=== PATIENT | male | born 1965 | race African-American/Black ===

== ENCOUNTER 2018-07-26 13:05 | Inpatient (IN) | payer OTHER ==
[~2018-07-26] VITALS: Ht 182.9 cm; Wt 87.4 kg
[2018-07-26 13:54] LABS: Basophils # (auto) 0 uL; Basophils % (auto) 0.8 % (0.0-2.0); Eosinophils # (auto) 0.1 uL; Eosinophils % (auto) 1.7 % (0.0-7.0); Hematocrit 48.9 % (41.0-53.0); Hemoglobin 16.8 g/dL (13.5-17.5); Lymphocytes # (auto) 1.7 uL; Lymphocytes % (auto) 29.6 % (10.0-50.0); Mean Corpuscular Hemoglobin 31.1 pg (28.0-32.0); Mean Corpuscular Hgb Conc. 34.3 g/dL (32.0-36.0); Mean Corpuscular Volume 90.6 fL (80.0-100.0); Monocytes # (auto) 0.5 uL; Monocytes % (auto) 9.2 % (0.0-12.0); Neutrophils # (auto) 3.3 uL; Neutrophils % (auto) 58.7 % (37.0-80.0); Nucleated Red Blood Cells % 0.1 %; Platelet Count (auto) 132 10^3/uL (140-450); Red Cell Distribution Width 14.1 % (11.8-14.3); White Blood Cell 5.6 10^3/uL (4.4-10.8)
[2018-07-26 14:10] LABS: Albumin 3.7 g/dL (3.4-5.0); Calcium 8.5 mg/dL (8.5-10.1); Magnesium 2.3 mg/dL (1.6-2.6); Potassium 4.1 mmol/L (3.5-5.1)
[2018-07-26 14:17] LABS: Bilirubin, Total 0.7 mg/dL (0.2-1.0); Total Protein 7.1 g/dL (6.4-8.2)
[2018-07-26 14:18] LABS: INR 1.07 (0.9-1.15); Partial Thromboplastin Time 25.6 sec (23.78-33.04); Prothrombin Time 10.8 sec (9.27-12.13)
[2018-07-26] MEDS ORDERED: ENOXAPARIN SOD 100 MG/1 ML SYRINGE SC ONE (15:00)
[2018-07-26] MEDS ORDERED: ASPirin 81 mg TAB PO ONE (15:00)
[2018-07-26] MEDS ORDERED: LISI2.5T47 PO (15:52)
[2018-07-26] MEDS ORDERED: FURO20TA PO (15:53)
[2018-07-26] MEDS ORDERED: POTA10TA79 PO (15:54)
[2018-07-26] MEDS ORDERED: CARV6.2551 PO (15:55)
[2018-07-26] MEDS ORDERED: HYDROcodone-ACET 10/325MG TAB PO PRN (16:00)
[2018-07-26 16:24] LABS: BUN/Creatinine Ratio 14.9
[2018-07-26] MEDS ORDERED: ASPI-231 PO (18:54)
--- NOTE | 2018-07-26 19:30 | NUR ---
assumed care, pt. awake, guards at bedside, no c/o pain, no sob.
[2018-07-26 22:00] VITALS: BP 111/72
--- NOTE | 2018-07-26 22:00 | NUR ---
lab. called, pt. trop- 0.516, will paged dr. echeverria.
--- NOTE | 2018-07-26 22:13 | NUR ---
paged dr. echeverria, thru answer center, left a message, waiting to call back.
--- NOTE | 2018-07-26 22:46 | NUR ---
dr. echeverria called back, no order made re: trop- 0.516, made order for sleeping pill.
[2018-07-26] MEDS ORDERED: TEMAZEPAM 15 MG CAP PO PRN (23:00)
[2018-07-26] MEDS: TEMAZEPAM 15 MG CAP PO PRN ×2 (23:23→23:48)
--- NOTE | 2018-07-26 23:30 | NUR ---
seen by dr. sarabia, made ordered and carried out.
[2018-07-27] VITALS (7 sets, daily range): BP systolic 100–138; BP diastolic 69–89
[2018-07-27] MEDS ORDERED: IOHEXOL 350 MG/ML 100ML IJ ONE (09:07)
[2018-07-27] MEDS: POTASSIUM CHL 10 Meq TABLET PO SCH (09:59)
[2018-07-27] MEDS: METOPROLOL TARTRATE 25 MG TAB PO SCH ×2 (10:00→22:08)
[2018-07-27] MEDS ORDERED: ENOXAPARIN SOD 100 MG/1 ML SYRINGE SC SCH (10:00)
[2018-07-27] MEDS: ASPirin-EC 81 mg tab PO SCH (10:01)
[2018-07-27] MEDS: FUROSEMIDE 20 MG TAB PO SCH (10:01)
[2018-07-27] MEDS: ALBUTEROL SULF 2.5 MG/0.5ML(0.5%) NEB SOLN NEB SCH ×2 (13:53→22:23)
--- NOTE | 2018-07-27 19:45 | NUR ---
Opening Shift Note: A&Ox4, resting in bed. Patient is an inmate with guards at bedside and shackles to left wrist and bilateral ankles; skin intact. Currently on 2LO2 via NC; does not normally wear, pain level 0/10, and ambulates independently without assistive devices. Bed locked in lowest position, side rails up x2, and call light within reach. IV 20 g in left AC IID inserted on 07/26/18. Patient does state presence of intermittent palpitations. POC discussed and questions answered. Will continue to round prn.
[2018-07-27] MEDS: ATORVASTATIN 20 MG TAB PO SCH (22:07)
[2018-07-28 05:00] VITALS: BP 122/79
[2018-07-28] MEDS: ALBUTEROL SULF 2.5 MG/0.5ML(0.5%) NEB SOLN NEB SCH ×3 (05:50→22:35)
[2018-07-28 08:00] VITALS: BP 151/83
[2018-07-28 08:42] VITALS: BP 151/83
[2018-07-28] MEDS: ASPirin-EC 81 mg tab PO SCH (08:47)
[2018-07-28] MEDS: POTASSIUM CHL 10 Meq TABLET PO SCH (08:47)
[2018-07-28] MEDS: FUROSEMIDE 20 MG TAB PO SCH (08:48)
[2018-07-28] MEDS: METOPROLOL TARTRATE 25 MG TAB PO SCH ×2 (08:48→21:38)
[2018-07-28] MEDS ORDERED: fentaNYL CITRATE 100 MCG/2 ML VL IV ONE (11:30)
[2018-07-28] MEDS ORDERED: MIDAZOLAM HCL 1MG/1ML-2 ML VIAL IV ONE (11:30)
[2018-07-28 13:03] VITALS: BP 129/79
[2018-07-28] MEDS: HYDROcodone-ACET 10/325MG TAB PO PRN ×3 (14:27→23:32)
[2018-07-28 16:50] VITALS: BP 141/79
--- NOTE | 2018-07-28 19:30 | NUR ---
Opening Shift Note: A&Ox4, resting in bed. Patient is an inmate with guards at bedside and shackles to left wrist and bilateral ankles; skin intact. Room air, pain level 8/10 in right upper chest, and ambulates independently without assistive devices. Bed locked in lowest position, side rails up x2, and call light within reach. IV 20 g in left AC IID inserted on 07/26/18. Patient does state presence of intermittent palpitations. Chest tube placement to right upper chest; drainage serosang. POC discussed and questions answered. Will continue to round prn.
[2018-07-28] MEDS: ATORVASTATIN 20 MG TAB PO SCH (21:37)
[2018-07-28 22:00] VITALS: BP 129/78
[2018-07-29] VITALS (7 sets, daily range): BP systolic 112–126; BP diastolic 70–83
--- NOTE | 2018-07-29 00:29 | NUR ---
Opening Shift Note Assumed care of patient, awake and alert. No S/S of distress/SOB or pain. Insructed on POC and to call for assist PRN, will continue to monitor for changes Q1hr and PRN. Chest tube to left chest wall intact draining Serous Sanguineous drainage. Patient asked about the chest tube and indications of the drainage.
[2018-07-29] MEDS: HYDROcodone-ACET 10/325MG TAB PO PRN (06:24)
[2018-07-29] MEDS: ALBUTEROL SULF 2.5 MG/0.5ML(0.5%) NEB SOLN NEB SCH ×3 (06:44→22:07)
--- NOTE | 2018-07-29 06:49 | NUR ---
700 ml of serosang. drainage from chest tube. Marked on container date and time.
--- NOTE | 2018-07-29 08:17 | NUR ---
Opening Shift Note Assumed care of patient from Torie RN, Patient is an inmate with shackles on left wrist and bilateral ankles. Awake and alert. No S/S of acute distress. Patient has a chest tube placed in the right upper chest, dry and intact, with serosanguinous fluid. IV 20g in left AC hep lock inserted on 07/26/18 intact. Instructed on POC and to call for assistance. Bed is in lowest locked position with side rails up x 2, will continue to monitor.
[2018-07-29] MEDS: POTASSIUM CHL 10 Meq TABLET PO SCH (10:08)
[2018-07-29] MEDS: ASPirin-EC 81 mg tab PO SCH (10:09)
[2018-07-29] MEDS: FUROSEMIDE 20 MG TAB PO SCH (10:09)
[2018-07-29] MEDS: METOPROLOL TARTRATE 25 MG TAB PO SCH ×2 (10:09→22:00)
--- NOTE | 2018-07-29 16:30 | NUR ---
AT BEDSIDE DR DOCKERY, DISCUSSING POC WITH PT, CONT CARE
--- NOTE | 2018-07-29 18:51 | NUR ---
CHEST TUBE OUTPUT 200ML OF SEROSANG FLUID WAS NOTED ON DAYSHIFT, NO DISTRESS NOTED, NO CP OR SOB AT THIS TIME, CONT CARE
[2018-07-29] MEDS: ATORVASTATIN 20 MG TAB PO SCH (22:19)
[2018-07-30] VITALS (7 sets, daily range): BP systolic 102–123; BP diastolic 62–74
[2018-07-30] MEDS: HYDROcodone-ACET 10/325MG TAB PO PRN (04:06)
[2018-07-30] MEDS: ALBUTEROL SULF 2.5 MG/0.5ML(0.5%) NEB SOLN NEB SCH ×3 (07:07→21:43)
--- NOTE | 2018-07-30 08:00 | NUR ---
ASSESSMENT NOTE PT IS ALERT ORIENTED X4, RESTING IN BED COMFORTABLY IN LOW CAPUTO POSITION, PT HAS A CHEST TUBE AT THE RT LOWER CHEST AREA, SELF REPOSITION NEEDED, PAIN 0/10, CALL LIGHT WITHIN REACH.
[2018-07-30] MEDS: METOPROLOL TARTRATE 25 MG TAB PO SCH ×2 (09:40→21:35)
[2018-07-30] MEDS: FUROSEMIDE 20 MG TAB PO SCH (09:41)
[2018-07-30] MEDS: POTASSIUM CHL 10 Meq TABLET PO SCH (09:41)
[2018-07-30] MEDS: ASPirin-EC 81 mg tab PO SCH (09:41)
--- NOTE | 2018-07-30 12:27 | NUR ---
DR Travis VOSS AT BED SIDE FOLLOWING UP ON PT WITH NEW ORDERS.
--- NOTE | 2018-07-30 13:00 | NUR ---
NUTRITION ASSESSMENT NOTES Please refer to link notes of nutrition screen form filed under the intervention section of the plan of care for further details. Est. Needs: 1850 kcal to 2350 kcal (20-25 kcal/kgBW), 75 gms to 94 gms pro (0.8-1.0 gms/kgBW). Will continue to monitor pertinent labs and reassess nutrient need prn Thank you. Addendum: 07/30/18 at [address] Amended: Links added.
--- NOTE | 2018-07-30 17:15 | NUR ---
PT CONTINUE STABLE, CONTINUE CONNECTED TO CHEST TUBE, CONTINUE MONITORING.
--- NOTE | 2018-07-30 19:20 | NUR ---
CHEST TUBE CONTINUE DRAINING, CONTINUE ATTACH TO PT, NO DISTRESS NOTED, CONTINUE MONITORING.
--- NOTE | 2018-07-30 19:45 | NUR ---
Opening Shift Note Assumed care of patient, awake and alert oriented x4. No S/S of distress/SOB or pain noted. Bed is in lowest locked position with bed rails up x2, guards at the bedside. Instructed on POC and to call for assist PRN. Patient is an inmate with shackles on left wrist and bilateral ankles. Patient has a chest tube placed in the right upper chest, dry and intact, with serosanguinous fluid.
--- NOTE | 2018-07-30 21:10 | NUR ---
Patient ambulating: Patient disconnected from wall sectioning at this time. chest tube clamped. Ambulating with guards and carrying chest tube besides him. No S/S of distress SOB noted.
--- NOTE | 2018-07-30 21:25 | NUR ---
Patient back in bed: Patients chest tube reconnected to wall suction on low intermittent suction at this time, tube unclamped. Bed is in lowest locked position with bed rails up x2. Guards are at the bedside and left wrist is chained to the bed in handcuffs. No S/S of distress SOB noted at this time.
[2018-07-30 21:34] LABS: Urine WBC None Seen /hpf (0 - 3)
[2018-07-30] MEDS: ATORVASTATIN 20 MG TAB PO SCH (21:34)
[2018-07-30 21:45] LABS: Urine Bacteria NONE SEEN /hpf (None Seen); Urine Blood Negative /uL (Negative); Urine Specific Gravity 1.005 (1.001-1.035)
[2018-07-31 05:27] VITALS: BP 115/70
--- NOTE | 2018-07-31 06:42 | NUR ---
70 ml of serosanguineous drainage from chest tube. Marked on container date and time. No S/S of distress SOB at this time. Patient placed on 2.5 nasal cannula per patients request.
[2018-07-31 08:00] VITALS: BP 103/63
--- NOTE | 2018-07-31 08:00 | NUR ---
ASSESSMENT NOTE PT IS ALERT ORIENTED X4, RESTING IN BED COMFORTABLY IN LOW CAPUTO POSITION, PT HAS A CHEST TUBE AT THE RT ANTERIOR CHEST AREA,CONTINUE ON SUCTION, CONTINUE MONITORING CHEST TUBE OUTPUT, SELF REPOSITION NEEDED, PAIN 0/10, CALL LIGHT WITHIN REACH.
[2018-07-31] MEDS: ALBUTEROL SULF 2.5 MG/0.5ML(0.5%) NEB SOLN NEB SCH ×3 (08:04→22:03)
[2018-07-31 09:00] VITALS: BP 108/63
[2018-07-31] MEDS: ASPirin-EC 81 mg tab PO SCH (09:46)
[2018-07-31] MEDS: FUROSEMIDE 20 MG TAB PO SCH (09:46)
[2018-07-31] MEDS: POTASSIUM CHL 10 Meq TABLET PO SCH (09:46)
[2018-07-31] MEDS: METOPROLOL TARTRATE 25 MG TAB PO SCH ×2 (09:47→22:09)
[2018-07-31 13:00] VITALS: BP 96/54
--- NOTE | 2018-07-31 13:00 | NUR ---
PT CONTINUE STABLE, CONTINUE MONITORING.
--- NOTE | 2018-07-31 17:30 | NUR ---
BM PT ASSISTED TO GO TO BATHROOM TO HAVE BM, THEN BACK TO BED, CONNECTED TO CHEST TUBE.
[2018-07-31 17:40] VITALS: BP 124/73
--- NOTE | 2018-07-31 18:15 | NUR ---
PT CONTINUE STABLE, CONTINUE MONITORING.
--- NOTE | 2018-07-31 19:30 | NUR ---
Opening Shift Note Assumed care of patient, awake and alert oriented x4. No S/S of distress/SOB or pain noted. Breaths even and unlabored. Patient has chest tube on the right anterior chest, continue on suction and monitoring drainage output. Patient able to reposition self, educated that patient will not be able to eat or drink after midnight. Patient verbalized understanding. Guards are at the bedside.. Instructed on POC and to call for assist PRN.
[2018-07-31 22:00] VITALS: BP 114/67
[2018-07-31] MEDS: TEMAZEPAM 15 MG CAP PO PRN (22:09)
[2018-07-31] MEDS: ATORVASTATIN 20 MG TAB PO SCH (22:12)
[2018-08-01 05:36] VITALS: BP 107/67
--- NOTE | 2018-08-01 06:35 | NUR ---
30 ml of serosanguineous drainage from chest tube. Marked on container date and time. No S/S of distress SOB at this time
[2018-08-01] MEDS: ALBUTEROL SULF 2.5 MG/0.5ML(0.5%) NEB SOLN NEB SCH ×3 (06:36→22:21)
--- NOTE | 2018-08-01 06:36 | NUR ---
RT NOTE: LEFT SIDED CHEST TUBE NOTED TO BE IN PLACE. RN BEDSIDE TO CHECK BANDAGE. WILL CONTINUE TO MONITOR.
--- NOTE | 2018-08-01 07:15 | NUR ---
Opening Shift Note Assumed care of patient, awake and alert. Guards at bed side. No S/S of distress/SOB or pain. Instructed to call for assist PRN, will continue to monitor for changes and chest tube drainage.
[2018-08-01 08:00] VITALS: BP 106/67
[2018-08-01 08:02] LABS: Basophils # (auto) 0.1 uL; Basophils % (auto) 1.3 % (0.0-2.0); Eosinophils # (auto) 0.4 uL; Eosinophils % (auto) 6.1 % (0.0-7.0); Hemoglobin 17.3 g/dL (13.5-17.5); Lymphocytes # (auto) 1.8 uL; Lymphocytes % (auto) 27.8 % (10.0-50.0); Mean Corpuscular Hemoglobin 31.2 pg (28.0-32.0); Mean Corpuscular Hgb Conc. 33.9 g/dL (32.0-36.0); Monocytes # (auto) 0.5 uL; Monocytes % (auto) 8.1 % (0.0-12.0); Neutrophils # (auto) 3.6 uL; Neutrophils % (auto) 56.7 % (37.0-80.0); Nucleated Red Blood Cells % 0.1 %; Platelet Count (auto) 149 10^3/uL (140-450); Red Blood Cells 5.55 10^6/uL (4.5-5.90); Red Cell Distribution Width 14.5 % (11.8-14.3); White Blood Cell 6.4 10^3/uL (4.4-10.8)
[2018-08-01 08:16] LABS: INR 1.11 (0.9-1.15); Partial Thromboplastin Time 22.3 sec (23.78-33.04); Prothrombin Time 11.8 sec (9.27-12.13)
[2018-08-01 08:30] LABS: Alanine Aminotransferase 43 U/L (16-61); Alkaline Phosphatase 76 U/L (45-117); Anion Gap 8 (5-15); Aspartate Aminotransferase 18 U/L (15-37); BUN/Creatinine Ratio 13.8; Bilirubin, Total 0.4 mg/dL (0.2-1.0); Blood Urea Nitrogen 13 mg/dL (7-18); Calcium 8.4 mg/dL (8.5-10.1); Carbon Dioxide 22 mmol/L (21-32); Chloride 110 mmol/L (98-107); GFR African American 108 mL/min; GFR Non-African American 90 mL/min; Glucose 90 mg/dL (74-106); Potassium 4.4 mmol/L (3.5-5.1); Sodium 140 mmol/L (136-145); Total Protein 6.7 g/dL (6.4-8.2)
[2018-08-01 09:10] VITALS: BP 95/68
[2018-08-01] MEDS: POTASSIUM CHL 10 Meq TABLET PO SCH (10:20)
[2018-08-01] MEDS: ASPirin-EC 81 mg tab PO SCH (10:20)
[2018-08-01] MEDS: FUROSEMIDE 20 MG TAB PO SCH (10:20)
[2018-08-01] MEDS: METOPROLOL TARTRATE 25 MG TAB PO SCH ×2 (10:21→21:57)
[2018-08-01] MEDS ORDERED: LIDOCAINE VISCOUS 2% 15ML UD MT ONE (12:45)
[2018-08-01] MEDS ORDERED: MIDAZOLAM HCL 1MG/1ML-2 ML VIAL IV ONE (12:45)
[2018-08-01] MEDS ORDERED: fentaNYL CITRATE 100 MCG/2 ML VL IV ONE (12:45)
[2018-08-01 13:00] VITALS: BP 105/68
[2018-08-01] MEDS ORDERED: IOHEXOL 350 MG/ML 100ML IJ ONE ×2 (13:03→13:11)
[2018-08-01] MEDS ORDERED: LIDOCAINE 2%HCL (LOCAL ANESTH.) INJ 20ML MDV ONE ×2 (13:03→15:07)
--- NOTE | 2018-08-01 13:06 | NUR ---
MARGIN ANALYST TRANSPORT PATIENT SAFELY TRANSPORTED TO MARGIN ANALYST FOR PROCEDURE. PATIENT STABLE. REPORT GIVEN TO PRE OP RN.
--- NOTE | 2018-08-01 14:27 | NUR ---
RT NOTE: PT CURRENTLY HAVING PROCEDURE DONE AND NOT AVAILABLE TO GIVE TX. WILL CONTINUE TO MONITOR.
[2018-08-01] MEDS ORDERED: ANGIOMAX 250 MG VIAL IV ONE (14:46)
[2018-08-01] MEDS ORDERED: SODIUM CHL 0.9% 0 ML ONE (14:47)
[2018-08-01] MEDS ORDERED: MIDAZOLAM HCL 1MG/1ML-2 ML VIAL ONE (14:47)
[2018-08-01] MEDS ORDERED: VANCOMYCIN 1GM/250ML 250 ML IV ONE (14:48)
--- NOTE | 2018-08-01 16:22 | NUR ---
Report received from RENATO Hernandez. PATRICIA MONTOYA brought to [id number] following Left Cardiac catheterization and YASMEEN, on ekg monitor. Per slabber RN Mary, patient's chest tube chamber was knocked over in slabber and was not replaced. Informed charge preparation technician. Will replace chest tube chamber. Patient transfered to unit connected to playground monitor #5. Catheterization site assessed for any bleeding, redness or swelling. Pressure dressing in place. Pedal pulses on affected leg assessed for positive tissue perfusion. Patient instructed on need to notify staff immediately if any pain, burning or wetness to site, and any lower back pain. Patient educated on new cardiac medications. All questions and concerns addressed, patient verbalized understanding of all education and instruction.
--- NOTE | 2018-08-01 16:45 | NUR ---
CHEST CHAMBER REPLACED USING STERILE TECHNIQUE WITH ASSISTANCE FROM COLLEGE SPECIALIST NORMA. CHAMBER CONNECTED TO WALL SUCTION 20CM LIS. ANCHORED TO FLOOR. WILL CONTINUE TO MONITOR.
--- NOTE | 2018-08-01 19:30 | NUR ---
CLOSING SHIFT NOTE ENDORSED CARE TO TRAVEL PT RN BOLA. PATIENT HAS NO S/S OF DISTRESS/SOB OR PAIN AT THIS TIME.
--- NOTE | 2018-08-01 19:40 | NUR ---
RECEIVED PATIENT FROM DAY SHIFT RN. PATIENT SITTING AT THE SIDE OF THE BED AND REQUESTED FOR BATHROOM. ASSISTED PATIENT TO BATHROOM BY DISCONNECTING THE CHEST TUBE, AND CONNECTED PATIENT BACK TO SUCTION AFTER PATIENT BACK TO BED. NO S/S OF DISTRESS NOTED. DENIED PAIN FOR NOW. POC INSTRUCTED AND ENCOURAGED PATIENT TO CALL FOR DIVIDING MACHINE OPERATOR HELPER IF NEEDED. BED IN LOWEST POSITION WITH SIDE RAILS UP X 2. CALL SOTOMAYOR WITHIN REACH. CONTINUE TO MONITOR FOR CHANGES Q1H AND PRN.
[2018-08-01] MEDS: ATORVASTATIN 20 MG TAB PO SCH (21:56)
[2018-08-01 22:21] VITALS: BP 114/63
--- NOTE | 2018-08-01 22:28 | NUR ---
PORSHA CALLED PATIENT RUNNING 5 BEATS OF VT. PATIENT ASLEEP, NO S/S OF DISTRESS NOTED. VITALS STABLE: TEMP 98.2, HR 90, RR 22. BP 114/60. O2 SAT 95% ON RA. EKG DONE, SHOWED NSR 92. WILL PAGED DR DOCKERY FOR THIS EPISODE. CONTINUE TO MONITOR.
--- NOTE | 2018-08-01 22:31 | NUR ---
Called/paged Dr. DOCKERY called re:PATIENT'S EPISODE OF A RUNNING OF VT. Waiting for call back. Continue care.
[2018-08-02 00:01] VITALS: BP 114/63
--- NOTE | 2018-08-02 02:04 | NUR ---
PATIENT C/O CHEST TUBE MAY PULL OUT. CHECKED WITH CHARGE NURSE LALITA, STITCHES ON CHEST TUBE CONNECTED, AND DRESSING ON IT C/D/I. TOTAL OUTPUT FROM THE BEGINNING OF THE SHIFT WAS FROM 17ML TO 140 ML. PATIENT DENIED ANY BREATHING PROBLEM AND PAIN. NO S/S OF DISTRESS AND SOB NOTED. PATIENT BREATHING EVENLY. WILL PAGE DR DOCKERY IN THE MORNING FOR POSSIBLE X-RAY TO CONFIRM THE POSITION OF CHEST TUBE. CONTINUE TO MONITOR.
[2018-08-02 05:22] VITALS: BP 114/75
--- NOTE | 2018-08-02 06:33 | NUR ---
CHEST TUBE TOTAL OUTPUT DURING THE SHIFT, 133ML, FROM 17ML TO 150ML. CONTINUE TO MONITOR.
--- NOTE | 2018-08-02 06:36 | NUR ---
Called/paged Dr. DOCKERY called re: PATIENT'S CONCERN OF CHEST TUBE, MIGHT NEED X-RAY OF IT . Waiting for call back. Continue care.
--- NOTE | 2018-08-02 06:44 | NUR ---
returned call Dr. DOCKERY returned call, updated on patient status and reason for call, NO NEW ORDER RECEIVED. DR DOCKERY WILL COME TO CHECK PATIENT FIRST AND TO SEE WHAT SHOULD DO. Continue care.
[2018-08-02] MEDS: ALBUTEROL SULF 2.5 MG/0.5ML(0.5%) NEB SOLN NEB SCH ×3 (06:57→22:03)
--- NOTE | 2018-08-02 07:20 | NUR ---
OPENING SHIFT NOTE ASSUMED CARE OF PATIENT FROM SENIOR DRAFTER RN BOLA. PATIENT IS AWAKE AND ALERT X4. PATIENT HAS NO S/S OF DISTRESS/SOB OR PAIN. INSTRUCTED PATIENT ON POC, PATIENT VERBALIZED UNDERSTANDING. BED IS IN LOWEST POSITION WITH SIDE RAILS RAISED X2, BED WHEELS LOCKED, CHEST TUBE IS ANCHORED TO FLOOR AND CONNECTED TO WALL SUCTION ON LIS 20 CM, LEFT WRIST AND BILATERAL ANKLES CUFFED TO BED RAILS, GUARDS AT BEDSIDE. WILL CONTINUE TO MONITOR.
[2018-08-02 07:31] VITALS: BP 118/77
[2018-08-02 08:15] VITALS: BP 118/77
--- NOTE | 2018-08-02 09:00 | NUR ---
MD DOCKERY AT BEDSIDE UPDATED MD ON PATIENT'S STATUS, MD IS AWARE. MD ORDERED RADIOLOGY CONSULT TO DC CHEST TUBE. WILL FOLLOW THROUGH WITH ORDERS
--- NOTE | 2018-08-02 09:08 | NUR ---
CALLED RADIOLOGY INFORMED THEM OF CONSULT. THEY ARE [place] AND WILL INFORM DR. MYERS
[2018-08-02] MEDS: POTASSIUM CHL 10 Meq TABLET PO SCH ×2 (10:58→22:49)
[2018-08-02] MEDS: FUROSEMIDE 20 MG TAB PO SCH ×2 (10:58→22:49)
[2018-08-02] MEDS: ASPirin-EC 81 mg tab PO SCH (10:59)
[2018-08-02] MEDS: METOPROLOL TARTRATE 25 MG TAB PO SCH ×2 (11:01→22:50)
--- NOTE | 2018-08-02 11:32 | NUR ---
Nutrition Follow-up Notes Wt.: 88.5 kg Pt was sleeping with guards by bedside. per records ot with NSTEMI. pt with no distress noted per nursing. pt is currently on regular diet with adequate PO of 100% x 5 per RN doc Est. Needs: 1850 kcal to 2350 kcal (20-25 kcal/kgBW), 75 gms to 94 gms pro (0.8-1.0 gms/kgBW). Will continue to monitor pertinent labs and reassess nutrient need prn Labs: ALB 3.0 L, CA 8.4 L. Skin: Sheldon scale 19, low risk, skin intact per senior sales operations manager. GI: Pt had 1 BM 08/01/18 per senior sales operations manager. PES: Altered nutrition related lab values r/t current/chronic medical condition aeb elev. Trop I, hyperchloremia Will continue to monitor PO intake, skin status, pertinent labs and weight trend. F/u in 3 to 5 days. Rec.: 1.) Consider Cardiac: 2 gms Na, Low Chol, Low Fat diet. 2.) Continue close supervision with meals. 3.) Refer to RD for further nutrition education and weight monitoring upon discharged. 4.) Continue current plan of care.
[2018-08-02 11:55] VITALS: BP 130/73
[2018-08-02 16:49] VITALS: BP 113/72
--- NOTE | 2018-08-02 19:06 | NUR ---
CLOSING SHIFT NOTE ENDORSED CARE TO TOOL DISPATCHER RN BOLA. PATIENT HAS NO S/S OF DISTRESS/SOB OR PAIN AT THIS TIME.
--- NOTE | 2018-08-02 19:17 | NUR ---
CHEST DRAINED 100 ml OF SEROSANGUINEOUS FLUID.
--- NOTE | 2018-08-02 19:20 | NUR ---
RECEIVED PATIENT FROM DAY SHIFT RN. PATENT RESTING N BED. NO S/S OF DISTRESS NOTED. DENIED PAIN AND SOB FOR NOW. CHEST TUBE IN PLACE DRAINING GRAVITY WITH LIS. DRESSING C/D/I. REMOVED DRESSING ON RIGHT GROIN PER PATIENT REQUESTED. NO S/S OF BLEEDING AND BRUISE NOTED ON THE SITE. POC INSTRUCTED AND ENCOURAGED PATIENT TO CALL FOR JUNIOR LINUX ADMINISTRATOR IF NEEDED. BED IN LOWEST POSITION WITH SIDE RAILS UP X 2. CALL SOTOMAYOR WITHIN REACH. ALARM ON. CONTINUE TO MONITOR FOR CHANGES Q1H AND PRN.
--- NOTE | 2018-08-02 22:42 | NUR ---
PATIENT ON LIS OF CHEST TUBE. NO OUTPUT NOTED IN THE SHIFT. CONTINUE TO MONITOR.
[2018-08-02] MEDS: ATORVASTATIN 20 MG TAB PO SCH (22:49)
[2018-08-02] MEDS: TEMAZEPAM 15 MG CAP PO PRN (22:50)
[2018-08-03] VITALS (7 sets, daily range): BP systolic 90–112; BP diastolic 62–75
--- NOTE | 2018-08-03 01:42 | NUR ---
MD Travis VOSS AT BEDSIDE.
--- NOTE | 2018-08-03 03:24 | NUR ---
PATIENT SLEEPING. NO S/S OF DISTRESS NOTED. CONTINUE CARE.
[2018-08-03] MEDS: ALBUTEROL SULF 2.5 MG/0.5ML(0.5%) NEB SOLN NEB SCH ×3 (06:41→22:33)
[2018-08-03 06:58] LABS: BUN/Creatinine Ratio 15.5; Calcium 8.6 mg/dL (8.5-10.1)
--- NOTE | 2018-08-03 08:00 | NUR ---
Received a call from tele monitor unit to report pt having a run of V.tach for 14 beats and back to normal rhythm, pt is asymptomatic, sitting on side of the bed eating breakfast, BP 112/74, hr 99, O2 sat 97%, will continue to monitor pt and report episode to Dr. Prater.
[2018-08-03] MEDS: ASPirin-EC 81 mg tab PO SCH (09:12)
[2018-08-03] MEDS: POTASSIUM CHL 10 Meq TABLET PO SCH ×2 (09:12→21:54)
[2018-08-03] MEDS: FUROSEMIDE 20 MG TAB PO SCH ×2 (09:12→21:55)
[2018-08-03] MEDS: METOPROLOL TARTRATE 25 MG TAB PO SCH ×2 (09:13→21:55)
--- NOTE | 2018-08-03 12:16 | NUR ---
CALLED AND SPOKE TO DR. Delonte VOSS /CARDIOLOGY TO INFORM HIM ABOUT PT HAVING 2 EPISODES OF V.TACH ABOUT 14 BEATS EACH, PT ASYMPTOMATIC, LAST V/S 107/65, 96, 24, 95%, 98.6, PER DR. Delonte VOSS THE PLAN IS TO DO AICD PLACEMENT TOMORROW PENDING PT AGREEING TO IT.
--- NOTE | 2018-08-03 12:39 | NUR ---
DR. DOCKERY AT BED SIDE TO SEE PT, DOCTOR INFORMED THAT PT HAD 2 RUNS OF V.TACH OF 14 BEATS AND CONVERTED BACK TO SINUS RHYTHM, DOCTOR ALSO INFORMED THAT THERE WAS NO CHEST TUBE OUTPUT FOR LAST NIGHT, DOCTOR ORDERED FOR THE CHEST TUBE TO BE D/C TODAY THE ORDER WAS PLACED YESTERDAY, RADIOLOGY CALLED AND INFORMED OF THE CHEST TUBE D/C ORDER.
--- NOTE | 2018-08-03 15:00 | NUR ---
PT TAKEN TO RADIOLOGY FOR RADIOLOGIST CONSULT TO D/C CHEST TUBE.
--- NOTE | 2018-08-03 15:15 | NUR ---
MED NEB NOT GIVEN AT THIS TIME. PT AT A PROCEDURE. INFORMED GUARDS AT BEDSIDE.
--- NOTE | 2018-08-03 15:20 | NUR ---
RIGHT SIDED CHEST TUBE REMOVED BY DR MYERS WITH PIGTAIL INTACT. DRESSING APPLIED. PT TOLERATED WELL.
--- NOTE | 2018-08-03 19:30 | NUR ---
OPENING NOTE REPORT RECEIVED FROM DAY SHIFT RN PATIENT IS A/OX4 RESTING IN BED, NO S/S OF DISTRESS NOTED. PATIENT HAD CHEST TUBE TO RIGHT SIDE REMOVED TODAY 08/03/18. DRESSING TO INCISION SITE ON ANTERIOR RIGHT SIDE CHEST IS C/D/I AT THIS TIME. IV TO LEFT AC INTACT AND PATENT. POC FOR TONIGHT DISCUSSED AND ALL QUESTIONS ANSWERED. PATIENT TO BE NPO AT MIDNIGHT FOR PENDING PROCEDURE TOMORROW: PACEMAKER INSERTION. PATIENT AWARE.WILL MONITOR Q1H PRN THROUGHOUT SHIFT, CALL LIGHT WITHIN REACH.
[2018-08-03] MEDS: ATORVASTATIN 20 MG TAB PO SCH (21:56)
[2018-08-03] MEDS: TEMAZEPAM 15 MG CAP PO PRN (23:07)
[2018-08-04] VITALS (8 sets, daily range): BP systolic 99–125; BP diastolic 53–85
[2018-08-04] MEDS: ALBUTEROL SULF 2.5 MG/0.5ML(0.5%) NEB SOLN NEB SCH ×3 (06:20→21:56)
--- NOTE | 2018-08-04 06:54 | NUR ---
CLOSING NOTE PATIENT SLEEPING AT THIS TIME. PT NPO FOR PENDING PACEMAKER INSERTION TODAY, CHECKLIST AND CONSENTS COMPLETED AND IN HARD CHART. DRESSING TO ANTERIOR CHEST C/D/I. GUARDS AT BEDSIDE. CALL LIGHT WITHIN REACH. WILL ENDORSE CARE TO AM NURSE.
--- NOTE | 2018-08-04 07:10 | NUR ---
OPENING SHIFT NOTE ASSUMED CARE OF PATIENT FROM ANNEALING FURNACE OPERATOR RENATO REYNA. PATIENT IS AWAKE AND ALERT X4. PATIENT HAS NO S/S OF DISTRESS/SOB OR PAIN. INSTRUCTED PATIENT ON POC, PATIENT VERBALIZED UNDERSTANDING. BED IS IN LOWEST POSITION WITH SIDE RAILS RAISED X2, BED WHEELS LOCKED, GUARDS AT BEDSIDE, LEFT WRIST AND BILATERAL ANKLES ARE CUFFED TO SIDE RAILS, CALL LIGHT AND URINAL ARE WITHIN REACH. WILL CONTINUE TO MONITOR.
--- NOTE | 2018-08-04 08:10 | NUR ---
CALLED MUSICAL INSTRUMENT MECHANIC SPOKE WITH MUSICAL INSTRUMENT MECHANIC RN PAM REGARDING PACEMAKER PLACEMENT FOR PATIENT. PER PAM SHE RECEIVED A TEXT LAST NIGHT FROM DR. VOSS STATING HE WAS GOING TO SCHEDULE THE PACEMAKER PROCEDURE FOR Wednesday08/05/[address] VOSS SERVICES TO VERIFY RESCHEDULED SURGERY. AWAITING CALL BACK
--- NOTE | 2018-08-04 08:50 | NUR ---
PAGED MD VOSS AGAIN. AWAITING CALL BACK.
[2018-08-04] MEDS: POTASSIUM CHL 10 Meq TABLET PO SCH ×2 (10:23→22:57)
[2018-08-04] MEDS: FUROSEMIDE 20 MG TAB PO SCH ×2 (10:23→22:58)
[2018-08-04] MEDS: ASPirin-EC 81 mg tab PO SCH (10:23)
[2018-08-04] MEDS: METOPROLOL TARTRATE 25 MG TAB PO SCH ×2 (10:23→22:55)
--- NOTE | 2018-08-04 10:35 | NUR ---
SPOKE WITH DR. VOSS. PER MD PATIENT WAS RESCHEDULED FOR PACEMAKER PROCEDURE TOMORROW 08/05/18 AT 1500. MD ORDERED REGULAR DIET FOR LUNCH AND DINNER AND NPO AFTER MIDNIGHT. WILL FOLLOW THROUGH WITH ORDERS
--- NOTE | 2018-08-04 11:30 | NUR ---
MD DOCKERY AT BEDSIDE INFORMED MD PATIENT WILL HAVE PACEMAKER PLACED TOMORROW, IS AWARE. NO NEW ORDERS GIVEN.
--- NOTE | 2018-08-04 19:11 | NUR ---
CLOSING SHIFT NOTE ENDORSED CARE TO GRAIN ELEVATOR SUPERINTENDENT RENATO REYNA. PATIENT HAS NO S/S OF DISTRESS/SOB OR PAIN AT THIS TIME.
--- NOTE | 2018-08-04 19:20 | NUR ---
OPENING NOTE REPORT RECEIVED FROM DAY SHIFT RN PATIENT IS A/OX4, SITTING UP IN BED, JUST FINISHED DINNER TRAY. PATIENT VISIBLY UPSET AND STATES, "THEY DIDN'T DO THE PROCEDURE TODAY, NOBODY CAME TO TALK TO ME. " PATIENT NOW STATES HE WOULD LIKE TO REFUSE THE PROCEDURE SCHEDULED FOR TOMORROW. WILL NOTIFY MD IMMEDIATELY. POC DISCUSSED, URINAL AT BEDSIDE. PATIENT HAS DRESSING TO ANTERIOR CHEST S/P CHEST TUBE REMOVAL ON 08/03/18. GUARDS AT BEDSIDE, LEFT WRIST AND BILATERAL ANKLES HANDCUFFED. NO S/S OF DECREASED CIRCULATION NOTED. CALL LIGHT WITHIN REACH.
--- NOTE | 2018-08-04 19:38 | NUR ---
SPOKE WITH MD CALLED DR. VOSS REGARDING PATIENTS NEW REFUSAL OF PACEMAKER INSERTION FOR TOMORROW. EXPLAINED TO MD THAT PATIENT IS VISIBLY UPSET THAT PROCEDURE WAS NOT DONE TODAY AND PATIENT IS NOW REFUSING TO GO FORWARD WITH PROCEDURE TOMORROW. PER , "I'LL COME IN AND TALK TO THE PATIENT TONIGHT" PLANS FOR MD TO COME SPEAK WITH PATIENT TONVICKIE
--- NOTE | 2018-08-04 22:03 | NUR ---
MD SPOKE WITH PATIENT DR.M VOSS, CELL OPERATION SUPERVISOR, DISCUSSED IN EXTENSIVE LENGTHS TO THE PATIENT THE RISKS/BENEFITS OF PROCEDURE:PACEMAKER INSERTION. ALL OF PATIENTS QUESTIONS AND CONCERNS WERE ANSWERED BY MD. PATIENT WAS ADVISED TO MAKE AN INDEPENDENT DECISION REGARDING PROCEDURE PATIENT HAS BEEN GIVEN ALL OF THE INFORMATION REGARDING PROCEDURE BY MD. STILL AWAITING FINAL DECISION BY PATIENT.
--- NOTE | 2018-08-04 22:50 | NUR ---
RECEIVED CALL FROM EVALUATION ENGINEER PATIENT HAD A RUN OF VTACH WENT TO ASSESS PATIENT, PATIENT IS ASYMPTOMATIC VITALS TAKEN AND WNL, EKG DONE. WILL CALL
[2018-08-04] MEDS: ATORVASTATIN 20 MG TAB PO SCH (22:57)
--- NOTE | 2018-08-04 23:17 | NUR ---
SPOKE WITH MD CALLED TO NOTIFY MD THAT PATIENT HAS AGREED TO PACEMAKER PLACEMENT FOR TOMORROW. ALSO INFORMED MD THAT PATIENT HAD 10-15 SECOND RUN OF VTACH PATIENT ASYMPTOMATIC. VITALS TAKEN AND WNL: 125/85, 103 HEART RATE, RR 20/MIN, SPO2 96% ON ROOM AIR EKG DONE AND PLACED IN CHART. MADE AWARE OF SITUATION. NEW ORDER RECEIVED WILL CARRY OUT ORDER
[2018-08-05] MEDS ORDERED: VANCOMYCIN 1GM/250ML 250 ML IV SCH
[2018-08-05] MEDS: TEMAZEPAM 15 MG CAP PO PRN ×2 (00:40→23:09)
--- NOTE | 2018-08-05 02:05 | NUR ---
WHILE THIS PRIMARY RN WAS ON BREAK, PATIENT HAD AN EPISODE OF SVT ALTO SINGER ORIGINALLY BELIEVED RHYTHM TO BE V TACH. TELE STRIP WAS PRINTED AND APPEARS TO BE SVT. PATIENT WAS ASSESSED BY COVERING RN. PATIENT WAS ASLEEP, ASYMPTOMATIC. THIS RN CHECKED VITALS AND DID NEW EKG. PATIENT ASYMPTOMATIC AT THIS TIME, DENIES ANY PAIN OR DISTRESS., TELE MONITOR SHOWS PATIENT BACK IN SINUS RHYTHM. WILL CONTINUE TO MONITOR PATIENT
[2018-08-05 05:12] VITALS: BP 125/76
[2018-08-05] MEDS: ALBUTEROL SULF 2.5 MG/0.5ML(0.5%) NEB SOLN NEB SCH ×3 (05:51→21:32)
[2018-08-05 06:03] LABS: Basophils # (auto) 0.1 uL; Basophils % (auto) 1.5 % (0.0-2.0); Eosinophils # (auto) 0.3 uL; Eosinophils % (auto) 5.2 % (0.0-7.0); Hematocrit 47.5 % (41.0-53.0); Hemoglobin 16.7 g/dL (13.5-17.5); Lymphocytes # (auto) 1.9 uL; Mean Corpuscular Hemoglobin 31.7 pg (28.0-32.0); Mean Corpuscular Hgb Conc. 35.1 g/dL (32.0-36.0); Mean Corpuscular Volume 90.1 fL (80.0-100.0); Monocytes # (auto) 0.6 uL; Monocytes % (auto) 9.2 % (0.0-12.0); Neutrophils # (auto) 3.4 uL; Neutrophils % (auto) 54.1 % (37.0-80.0); Nucleated Red Blood Cells % 0.2 %; Platelet Count (auto) 171 10^3/uL (140-450); Red Blood Cells 5.27 10^6/uL (4.5-5.90); Red Cell Distribution Width 14.1 % (11.8-14.3); White Blood Cell 6.3 10^3/uL (4.4-10.8)
[2018-08-05 06:23] LABS: INR 1.09 (0.9-1.15); Partial Thromboplastin Time 26.1 sec (23.78-33.04); Prothrombin Time 11.6 sec (9.27-12.13)
[2018-08-05 06:28] LABS: BUN/Creatinine Ratio 14.9; Calcium 8.7 mg/dL (8.5-10.1); Potassium 3.9 mmol/L (3.5-5.1)
--- NOTE | 2018-08-05 06:35 | NUR ---
PATIENT TAKEN DOWN TO SHEET METAL WORK FURNACE INSTALLER FOR PROCEDURE HARD CHART WITH CONSENTS AND CHECKLIST GIVEN TO SHEET METAL WORK FURNACE INSTALLER NURSE
--- NOTE | 2018-08-05 06:57 | NUR ---
CLOSING NOTE PATIENT NOT ON UNIT, DOWN IN OPTICAL GOODS WORKER FOR PROCEDURE. WILL ENDORSE CARE TO AM NURSE
[2018-08-05] MEDS ORDERED: VANCOMYCIN 1GM/250ML 250 ML IV ONE ×2 (07:00→07:31)
--- NOTE | 2018-08-05 07:15 | NUR ---
Patient off unit, at Typesetter Perforator Operator as per report.
[2018-08-05] MEDS ORDERED: fentaNYL CITRATE 100 MCG/2 ML VL ONE (07:30)
[2018-08-05] MEDS ORDERED: VANCOMYCIN HCL 1000 MG VL ONE ×2 (07:30→08:44)
[2018-08-05] MEDS ORDERED: MIDAZOLAM HCL 1MG/1ML-2 ML VIAL ONE (07:31)
[2018-08-05] MEDS ORDERED: LIDOCAINE 2%HCL (LOCAL ANESTH.) INJ 20ML MDV ONE ×2 (07:32→07:43)
[2018-08-05] MEDS ORDERED: IOHEXOL 350 MG/ML 100ML IJ ONE (07:43)
[2018-08-05] MEDS: ASPirin-EC 81 mg tab PO SCH (09:50)
--- NOTE | 2018-08-05 10:15 | NUR ---
Patient awake, oriented x4. No acute distress noted.
--- NOTE | 2018-08-05 10:15 | NUR ---
Patient back to room post pacemaker insertion as per Travis Oro. Left upper chest with ice pack. Arm sling at bedside. Received report from aquatic laborer RN Carmelina. Male security at bedside. IV on the left AC, 20 gauge, leaking noted on the IV site.
[2018-08-05] MEDS: POTASSIUM CHL 10 Meq TABLET PO SCH ×2 (10:35→22:08)
[2018-08-05] MEDS: FUROSEMIDE 20 MG TAB PO SCH ×2 (10:35→22:08)
[2018-08-05] MEDS: METOPROLOL TARTRATE 25 MG TAB PO SCH ×2 (10:35→22:08)
--- NOTE | 2018-08-05 11:40 | NUR ---
New IV line inserted by Charge Nurse Paul on the left hand, 22 gauge. Previous IV line on the left AC, removed, IV catheter intact, pressure dressing applied. Male security at bedside.
[2018-08-05] MEDS: ceFAZolin 1GM/50ML 50 ML IV SCH ×2 (12:31→17:45)
[2018-08-05 13:05] VITALS: BP 135/93
[2018-08-05] MEDS: HYDROcodone-ACET 10/325MG TAB PO PRN ×2 (15:17→21:13)
--- NOTE | 2018-08-05 15:17 | NUR ---
Patient complained of pain on the left chest area (post op pacemaker placement). [place] 5/ PO given for pain as ordered. Addendum: 08/05/18 at 1831 by June Brandon RN [place]
--- NOTE | 2018-08-05 15:21 | NUR ---
Nutrition Follow-up Notes Wt.: 91.3 kg as of yesterday. Pt's off the floor for a procedure during rounds this morning. Pt's NPO, s/p Implantation of automatic implantable cardioverter defibrillator earlier, no signs of distress noted, resumed oral diet of Regular diet with adequate PO intake aeb 100% on today's lunch. Est. Needs: 1850 kcal to 2350 kcal (20-25 kcal/kgBW), 75 gms to 94 gms pro (0.8-1.0 gms/kgBW). Will continue to monitor pertinent labs and reassess nutrient need prn Labs: Pertinent labs today wnl except for Cl 108 H; 08/01/18 Alb 3.0 L, Ca 8.4 L; Trop I 0.625 H. Skin: Sheldon scale 20 low risk, pt's anterior chest incision dry and intact per literacy coordinator. GI: Pt had 1 BM this morning per literacy coordinator. PES: Altered nutrition related lab values r/t current/chronic medical condition aeb elev. Trop I, hyperchloremia Will continue to monitor PO intake, skin status, pertinent labs and weight trend. F/u in 3 to 5 days. Rec.: 1.) Consider Cardiac: 2 gms Na, Low Chol, Low Fat diet. 2.) Continue close supervision with meals. 3.) Refer to RD for further nutrition education and weight monitoring upon discharged. 4.) Continue current plan of care.
[2018-08-05 16:46] VITALS: BP 117/71
--- NOTE | 2018-08-05 19:30 | NUR ---
RECEIVED PATIENT LYING IN BED, AWAKE, ALERT, ORIENTED X4. S/P AICD IMPLANTATION TODAY, WITH DRESSING ON THE LEFT UPPER CHEST, DRY AND INTACT. NO S/S OF RESPIRATORY DISTRESS, DENIES SOB AND CHEST PAIN. ORIENTED ON PLAN OF CARE. BED IS LOCKED AND IN LOWEST LEVEL, SIDE RAILS UP X2, CALL LIGHT WITHIN REACH. WILL CONTINUE TO MONITOR.
[2018-08-05 22:00] VITALS: BP 115/73
[2018-08-05] MEDS: ATORVASTATIN 20 MG TAB PO SCH (22:08)
[2018-08-06] MEDS: ceFAZolin 1GM/50ML 50 ML IV SCH ×5 (00:12→23:35)
[2018-08-06 04:45] VITALS: BP 108/65
[2018-08-06] MEDS: ALBUTEROL SULF 2.5 MG/0.5ML(0.5%) NEB SOLN NEB SCH ×3 (05:42→23:02)
[2018-08-06] MEDS: HYDROcodone-ACET 10/325MG TAB PO PRN ×2 (05:49→21:44)
--- NOTE | 2018-08-06 07:38 | NUR ---
CARE ENDORSED TO AM SHIFT RN
[2018-08-06 08:00] VITALS: BP 117/80
--- NOTE | 2018-08-06 08:00 | NUR ---
ASSESSMENT NOTE PT IS ALERT ORIENTED X4, RESTING IN BED COMFORTABLY, NO DISTRESS NOTED, PT APPEAR QUIET, NO DISTRESS NOTED, DENIES ANY CHEST PAIN, PAIN 0/10, SELF REPOSITIO NEEDED, CALL LIGHT WITHIN REACH.
[2018-08-06 09:00] VITALS: BP 97/58
[2018-08-06] MEDS: POTASSIUM CHL 10 Meq TABLET PO SCH ×2 (09:52→21:35)
[2018-08-06] MEDS: FUROSEMIDE 20 MG TAB PO SCH ×2 (09:53→21:35)
[2018-08-06] MEDS: METOPROLOL TARTRATE 25 MG TAB PO SCH ×2 (09:53→21:35)
[2018-08-06] MEDS: ASPirin-EC 81 mg tab PO SCH (09:54)
[2018-08-06] MEDS ORDERED: VANCOMYCIN 1GM/250ML 250 ML IV ONE (10:00)
[2018-08-06 13:00] VITALS: BP 102/65
--- NOTE | 2018-08-06 13:40 | NUR ---
DR VOSS AT BED SIDE FOLLOWING UP ON PT WITH NEW ORDERS
--- NOTE | 2018-08-06 14:00 | NUR ---
PT IS ABLE TO AMBULATE TO BATHROOM NEEDED.
[2018-08-06 17:11] VITALS: BP 114/76
[2018-08-06] MEDS: OXYCODONE W/ ACETAMINOPHEN 5/325MG TABLET PO PRN (18:08)
--- NOTE | 2018-08-06 18:56 | NUR ---
PT CONTINUE STABLE, CONTINUE MONITORING
--- NOTE | 2018-08-06 19:05 | NUR ---
RECEIVED PATIENT LYING IN BED, AWAKE, ALERT, ORIENTED X4. NO S/S OF RESPIRATORY DISTRESS, DENIES SOB AND CHEST PAIN. ORIENTED ON PLAN OF CARE. BED IS LOCKED AND IN LOWEST LEVEL, SIDE RAILS UP X2, CALL LIGHT WITHIN REACH. WILL CONTINUE TO MONITOR.
[2018-08-06] MEDS: ATORVASTATIN 20 MG TAB PO SCH (21:34)
[2018-08-06 22:00] VITALS: BP 104/65
[2018-08-06] MEDS: TEMAZEPAM 15 MG CAP PO PRN (23:35)
[2018-08-07] VITALS (7 sets, daily range): BP systolic 100–126; BP diastolic 66–78
[2018-08-07] MEDS: ALBUTEROL SULF 2.5 MG/0.5ML(0.5%) NEB SOLN NEB SCH ×3 (06:04→22:06)
[2018-08-07] MEDS: ceFAZolin 1GM/50ML 50 ML IV SCH ×4 (06:21→23:31)
--- NOTE | 2018-08-07 07:23 | NUR ---
CARE ENDORSED TO AM SHIFT RN
--- NOTE | 2018-08-07 08:00 | NUR ---
ASSESSMENT NOTE PT IS ALERT ORIENTED X4, RESTING IN BED COMFORTABLY, NO DISTRESS NOTED, SELF REPOSITION NEEDED, ABLE TO AMBULATE, USE URINAL NEEDED, PAIN 0/10 AT THIS TIME, A METAL HAND CUFF NOTED AT LEFT HAND, CHECKED FOR CIRCULATION, CALL LIGHT WITHIN REACH, PT'S GUARDS AT BED SIDE.
[2018-08-07] MEDS: FUROSEMIDE 20 MG TAB PO SCH ×2 (09:01→17:46)
[2018-08-07] MEDS: METOPROLOL TARTRATE 25 MG TAB PO SCH ×2 (09:02→21:57)
[2018-08-07] MEDS: POTASSIUM CHL 10 Meq TABLET PO SCH (09:02)
[2018-08-07] MEDS: ASPirin-EC 81 mg tab PO SCH ×2 (09:02→10:00)
--- NOTE | 2018-08-07 14:37 | NUR ---
DR DOCKERY AT BED SIDE FOLLOWING UP ON PT WITH NEW ORDERS.
--- NOTE | 2018-08-07 18:17 | NUR ---
PT CONTINUE STABLE,DENIES CHEST PAIN 0/10, OR SHORTNESS OF BREATH, CONTINUE CARE.
[2018-08-07] MEDS: ATORVASTATIN 20 MG TAB PO SCH (21:57)
[2018-08-07] MEDS: OXYCODONE W/ ACETAMINOPHEN 5/325MG TABLET PO PRN (21:57)
[2018-08-07] MEDS: POTASSIUM CHL 20 Meq TABLET PO SCH (21:57)
[2018-08-07] MEDS: TEMAZEPAM 15 MG CAP PO PRN (23:49)
[2018-08-08 05:25] VITALS: BP 106/68
[2018-08-08] MEDS: ALBUTEROL SULF 2.5 MG/0.5ML(0.5%) NEB SOLN NEB SCH ×2 (06:10→14:00)
[2018-08-08] MEDS: ceFAZolin 1GM/50ML 50 ML IV SCH ×2 (06:18→12:28)
[2018-08-08] MEDS: FUROSEMIDE 20 MG TAB PO SCH (06:19)
[2018-08-08 06:56] LABS: BUN/Creatinine Ratio 15.2; Calcium 8.9 mg/dL (8.5-10.1); Potassium 4.1 mmol/L (3.5-5.1)
--- NOTE | 2018-08-08 07:30 | NUR ---
PATIENT IN LOW FOWLERS, DENIES ANY DISCOMFORT AT MOMENT, AWAKE, ALERT, ORIENTED x4. ABLE TO VERBALIZE NEEDS. DRESSING TO RIGHT LOWER CHEST CDI, AICD DRESSING TO LEFT UPPER CHEST CDI. EFFORTLESS BREATHING ON ROOM AIR. IV PATENT TO LEFT HAND #22. CALL LIGHT WITHIN REACH.
--- NOTE | 2018-08-08 07:31 | NUR ---
CARE ENDORSED TO AM SHIFT RN
[2018-08-08 08:35] VITALS: BP 95/61
[2018-08-08] MEDS: POTASSIUM CHL 20 Meq TABLET PO SCH (08:53)
[2018-08-08] MEDS: ASPirin-EC 81 mg tab PO SCH (08:54)
[2018-08-08] MEDS: METOPROLOL TARTRATE 25 MG TAB PO SCH (08:54)
--- NOTE | 2018-08-08 11:36 | NUR ---
Nutrition Follow-up Notes Wt.: 87.4 kg Pt's sleeping with guards by bedside. per records pt s/p AICD. pt with no distress noted. pt is currently on cardiac diet with adequate PO of > 75% x 2 days per RN doc Est. Needs: 1850 kcal to 2350 kcal (20-25 kcal/kgBW), 75 gms to 94 gms pro (0.8-1.0 gms/kgBW). Will continue to monitor pertinent labs and reassess nutrient need prn Labs: All labs wnl for today Skin: Sheldon scale 20 low risk, pt's anterior chest incision dry and intact per software development specialist. GI: Pt had 3 BM this morning per software development specialist. PES: Altered nutrition related lab values r/t current/chronic medical condition aeb elev. Trop I, hyperchloremia Will continue to monitor PO intake, skin status, pertinent labs and weight trend. F/u in 3 to 5 days. Rec.: 1.) Continue close supervision with meals. 3.) Refer to RD for further nutrition education and weight monitoring upon discharged. 4.) Continue current plan of care.
[2018-08-08 14:59] VITALS: BP 95/61
--- NOTE | 2018-08-08 15:59 | NUR ---
DISCHARGE INSTRUCTION GIVEN TO PATIENT AND GUARD AT BEDSIDE. BOTH VERBALIZED UNDERSTANDING FOR FOLLOW UP APPOINTMENT AND CONTINUATION OF MEDICATIONS AT HIS FACILITY. TELE BOX RETURNED TO POR[facility], IV CATHETER DC'D CATHETER INTACT. NO PHLEBITIS. GUARDS AT BEDSIDE.
== END 2018-08-08 16:00 | DRG 224 ==
LOC: EEVIPCON 13:05 → EDBD 13:05 → ER 13:05 → EEVIPCON 15:44 → TELE-E-ADS 15:44
PROVIDERS: ADMIT Internal Medicine; ATTEND Internal Medicine
PROC: 0W9930Z Drainage of Right Pleural Cavity with Drainage Device, Percutaneous Approach (ICD-10-PCS; 2018-07-28)
PROC: 4A023N8 Measurement of Cardiac Sampling and Pressure, Bilateral, Percutaneous Approach (ICD-10-PCS; principal; 2018-08-01)
PROC: B2111ZZ Fluoroscopy of Multiple Coronary Arteries using Low Osmolar Contrast (ICD-10-PCS; 2018-08-01)
PROC: B41F1ZZ Fluoroscopy of Right Lower Extremity Arteries using Low Osmolar Contrast (ICD-10-PCS; 2018-08-01)
PROC: B5171ZZ Fluoroscopy of Left Subclavian Vein using Low Osmolar Contrast (ICD-10-PCS; 2018-08-01)
PROC: 04HY32Z Insertion of Monitoring Device into Lower Artery, Percutaneous Approach (ICD-10-PCS; 2018-08-01)
PROC: 0JH608Z Insertion of Defibrillator Generator into Chest Subcutaneous Tissue and Fascia, Open Approach (ICD-10-PCS; 2018-08-05)
PROC: 02HK3KZ Insertion of Defibrillator Lead into Right Ventricle, Percutaneous Approach (ICD-10-PCS; 2018-08-05)
DX: I42.0 Dilated cardiomyopathy (principal); I50.23 Acute on chronic systolic (congestive) heart failure; J94.2 Hemothorax; I47.2 Ventricular tachycardia; K51.90 Ulcerative colitis, unspecified, without complications; I20.0 Unstable angina; R91.8 Other nonspecific abnormal finding of lung field; I09.9 Rheumatic heart disease, unspecified; I11.0 Hypertensive heart disease with heart failure; Z95.2 Presence of prosthetic heart valve; Z82.49 Family history of ischemic heart disease and other diseases of the circulatory system; Z95.1 Presence of aortocoronary bypass graft; Z95.810 Presence of automatic (implantable) cardiac defibrillator
CPT/HCPCS: 10022; 36415; 71045; 71046; 71250; 71275; 77012; 80048; 80053; 81001; 83735; 83880; 83986; 84443; 84484; 85025; 85610; 85730; 86850; 86900; 86901; 87205; 89051; 93005; 94640; 96372; 99152; A4223; C1729; C1751; G0378; J0690; J2250

== ENCOUNTER 2018-11-10 12:59 | Inpatient (IN) | payer OTHER ==
[~2018-11-10] VITALS: Ht 182.9 cm; Wt 77.0 kg
[~2018-11-10 12:59] MED LIST: AMIO200T4 PO; ASPI-231 PO; CARV6.2551 PO; FURO1TAB33 PO; LISI2.5T47 PO; POTA10TA79 PO; WARF2TAB49 PO
[2018-11-10 14:24] LABS: Basophils # (auto) 0 uL; Basophils % (auto) 1.2 % (0.0-2.0); Eosinophils # (auto) 0 uL; Eosinophils % (auto) 0.6 % (0.0-7.0); Hematocrit 48.2 % (41.0-53.0); Hemoglobin 16.1 g/dL (13.5-17.5); Lymphocytes # (auto) 1.1 uL; Lymphocytes % (auto) 27.7 % (10.0-50.0); Mean Corpuscular Hemoglobin 30.6 pg (28.0-32.0); Mean Corpuscular Hgb Conc. 33.5 g/dL (32.0-36.0); Mean Corpuscular Volume 91.4 fL (80.0-100.0); Monocytes # (auto) 0.2 uL; Monocytes % (auto) 6.4 % (0.0-12.0); Neutrophils # (auto) 2.5 uL; Neutrophils % (auto) 64.1 % (37.0-80.0); Nucleated Red Blood Cells % 0.2 %; Platelet Count (auto) 81 10^3/uL (140-450); Red Blood Cells 5.27 10^6/uL (4.5-5.90); Red Cell Distribution Width 17.6 % (11.8-14.3); White Blood Cell 3.9 10^3/uL (4.4-10.8)
[2018-11-10 14:50] LABS: Albumin 3.1 g/dL (3.4-5.0); BUN/Creatinine Ratio 25.7; Calcium 8.7 mg/dL (8.5-10.1); Potassium 4.1 mmol/L (3.5-5.1)
[2018-11-10 14:55] LABS: Bilirubin, Total 2.5 mg/dL (0.2-1.0); Total Protein 6.7 g/dL (6.4-8.2)
[2018-11-10] MEDS ORDERED: ENOXAPARIN SOD 100 MG/1 ML SYRINGE SC ONE (15:15)
[2018-11-10] MEDS ORDERED: ASPirin 81 mg TAB PO ONE (15:15)
[2018-11-10] MEDS ORDERED: FUROSEMIDE 40 MG/4 ML VIAL IV ONE (16:00)
[2018-11-10] MEDS ORDERED: NITROGLYCERIN 0.4 MG SL TAB SL PRN (18:15)
--- NOTE | 2018-11-10 21:30 | NUR ---
Telemetry admit from ER PATRICIA MONTOYA admitted to Telemetry unit after SBAR received. Patient oriented to OMERO CEJA RN primary RN, unit, room, bed, and unit policies regarding patient care and visiting hours. Patient now on continuous telemetry monitoring, tele box # 13 and telemetry reading on arrival to unit is Sinus Rhythm at 95BPM. Patient placed on bedside oxygen, weighed by bedscale and encouraged to call if they need something. All questions and concerns addressed, patient verbalized understanding.
--- NOTE | 2018-11-10 21:45 | NUR ---
Patient is alert and oriented, no distress noted saturating at 99% on room air. Guards at bedside. Elevated bilateral lower extremities with pillows and offloaded bilateral heels. Will monitor
--- NOTE | 2018-11-10 21:45 | NUR ---
Rounds Patient is complaining of pain to left leg. Will paged MD to request pain medication.
[2018-11-10 22:00] VITALS: BP 106/70
--- NOTE | 2018-11-10 22:00 | NUR ---
Paged Paged Dr Prater, awaiting call back.
[2018-11-10] MEDS: POTASSIUM CHL 20 Meq TABLET PO SCH (22:25)
[2018-11-10] MEDS: AMIODARONE HCL 200 MG TAB PO SCH (22:26)
[2018-11-10] MEDS: CARVEDILOL 3.125 MG TAB PO SCH (22:27)
--- NOTE | 2018-11-10 22:43 | NUR ---
MD returned call Received an order from Dr Prater for Conesus . Order noted.
[2018-11-10 23:01] VITALS: BP 106/70
[2018-11-10] MEDS: HYDROcodone-ACET 10/325MG TAB PO PRN (23:48)
[2018-11-11] VITALS (7 sets, daily range): BP systolic 92–108; BP diastolic 61–72
[2018-11-11] MEDS: FUROSEMIDE 40 MG/4 ML VIAL IV SCH ×2 (05:58→17:33)
[2018-11-11] MEDS: HYDROcodone-ACET 10/325MG TAB PO PRN (05:59)
--- NOTE | 2018-11-11 06:28 | NUR ---
ROUNDS Patient is alert and awake, no distress noted, saturating at 94% on Room air. Patient just received norco for pain. Will monitor
--- NOTE | 2018-11-11 07:25 | NUR ---
Paged for lab results, awaiting call back.
--- NOTE | 2018-11-11 07:30 | NUR ---
Called back Dr Prater returned call and received and orders received.
--- NOTE | 2018-11-11 07:30 | NUR ---
Opening Shift Note RECEIVED REPORT FROM NOC RN. Assumed care of patient, awake and alert. No S/S of distress/SOB or pain. BED IN LOWEST, LOCKED POSITION WITH SIDERAILS UP x2. Instructed on POC and to call for assist PRN, will continue to monitor for changes Q1hr and PRN.
--- NOTE | 2018-11-11 07:43 | NUR ---
Dr Prater called back and orders for Robitussin and Proventil received. Orders noted. Regarding troponin lab results, Dr Prater is aware.
[2018-11-11] MEDS ORDERED: ALBUTEROL SULF 2.5 MG/0.5ML(0.5%) NEB SOLN NEB PRN ×2 (07:45→15:45)
[2018-11-11 09:58] LABS: Basophils # (auto) 0 uL; Basophils % (auto) 0.9 % (0.0-2.0); Eosinophils # (auto) 0 uL; Eosinophils % (auto) 0.7 % (0.0-7.0); Hematocrit 48.6 % (41.0-53.0); Hemoglobin 15.8 g/dL (13.5-17.5); Lymphocytes # (auto) 1.2 uL; Lymphocytes % (auto) 22.7 % (10.0-50.0); Mean Corpuscular Hgb Conc. 32.5 g/dL (32.0-36.0); Mean Corpuscular Volume 95.3 fL (80.0-100.0); Monocytes # (auto) 0.5 uL; Monocytes % (auto) 9.5 % (0.0-12.0); Neutrophils # (auto) 3.5 uL; Neutrophils % (auto) 66.2 % (37.0-80.0); Nucleated Red Blood Cells % 0.7 %; Platelet Count (auto) 92 10^3/uL (140-450); Red Cell Distribution Width 18.3 % (11.8-14.3); White Blood Cell 5.3 10^3/uL (4.4-10.8)
[2018-11-11 10:25] LABS: Calcium 8.3 mg/dL (8.5-10.1); Potassium 4.9 mmol/L (3.5-5.1)
[2018-11-11 10:26] LABS: INR 2.18 (0.9-1.15); Partial Thromboplastin Time 34.1 sec (23.64-32.05)
[2018-11-11 10:29] LABS: BUN/Creatinine Ratio 19.4
[2018-11-11] MEDS: POTASSIUM CHL 20 Meq TABLET PO SCH ×2 (10:35→22:57)
[2018-11-11] MEDS: CARVEDILOL 3.125 MG TAB PO SCH ×2 (10:36→22:56)
[2018-11-11] MEDS: LISINOPRIL 5 MG TAB PO SCH (10:36)
[2018-11-11] MEDS: AMIODARONE HCL 200 MG TAB PO SCH ×2 (10:37→22:56)
--- NOTE | 2018-11-11 11:35 | NUR ---
CALLED DR. DOCKERY REGARDING PATIENT'S PLATELET LEVELS. NO NEW ORDERS RECEIVED.
--- NOTE | 2018-11-11 11:57 | NUR ---
PT ASSESSED FOR PRN HHN TX. PT IS ON ROOM AIR, SPO2 92%, HR 78, RR 22. PT DENIES SOB. PT AWARE TO HAVE RT PAGED IF BREATHING TX INDICATED. WILL CONTINUE TO MONITOR.
[2018-11-11] MEDS: ASPirin-EC 81 mg tab PO SCH (13:30)
[2018-11-11] MEDS: WARFARIN SODIUM 2 MG TAB PO SCH (17:34)
--- NOTE | 2018-11-11 19:55 | NUR ---
Opening shift Note Pt is resting in bed with eyes closed and resp rate is even and unlabored. Npo s/s of any distress noted at this time. Pt woke up and POC discussed with pt and pt verbalizes understanding. Left wrist is handcuffed to side rail and 2 guards at bedside. Both ankles are shackled loosely to bottom of the bed. Bilat LE with 3+ pitting edema. Bed is low, wheels are locked, and call light is with in reach.
[2018-11-11 20:53] LABS: Urine WBC None Seen /hpf (0 - 3)
[2018-11-11 21:11] LABS: Urine Bacteria NONE SEEN /hpf (None Seen); Urine Blood Negative /uL (Negative); Urine Specific Gravity 1.013 (1.001-1.035)
[2018-11-11 23:59] LABS: Free T3 1.68 pg/mL (2.3-4.2); Free T4 (Free Thyroxine) 1.17 ng/dL (0.89-1.76)
[2018-11-12 04:22] VITALS: BP 92/52
[2018-11-12] MEDS: FUROSEMIDE 40 MG/4 ML VIAL IV SCH (05:52)
[2018-11-12 05:53] LABS: INR 2.05 (0.9-1.15)
[2018-11-12 05:59] LABS: Albumin 2.6 g/dL (3.4-5.0); Calcium 8.5 mg/dL (8.5-10.1); Potassium 4.9 mmol/L (3.5-5.1)
[2018-11-12 06:03] LABS: BUN/Creatinine Ratio 24.9; Bilirubin, Total 2.7 mg/dL (0.2-1.0); Total Protein 6.1 g/dL (6.4-8.2)
[2018-11-12 09:00] VITALS: BP 95/66
[2018-11-12] MEDS: LISINOPRIL 5 MG TAB PO SCH (10:00)
[2018-11-12] MEDS: CARVEDILOL 3.125 MG TAB PO SCH (10:00)
--- NOTE | 2018-11-12 10:00 | NUR ---
WOUND CARE NOTE: IN TO SEE PATIENT AT THIS TIME PER WOUND CARE CONSULT REQUEST. PATIENT NOTED TO HAVE WOUNDS TO BLE UPON ADMIT. WOUND PHOTOS TAKEN AT THAT TIME BY BEDSIDE NURSE FOR REFERENCE. PATIENT HAS CURRENT JAMES SCORE OF 18. HE CAN SELF TURN/REPOSITION SELF. PATIENT ADMITTED TO [facility] WITH DIAGNOSIS OF ANASARCA, ELEVATED TROPONIN. HE IS NOTED TO HAVE EDEMA WITH BLISTERING TO BLE, ESPECIALLY FEET/HEELS. ALL BLISTERS ARE SERUM FILLED, INTACT. PATIENT HAS BOTH FEET/HEELS ELEVATED FOR EDEMA CONTROL, CHUX UNDER LEGS. LEFT OPEN TO AIR. RECOMMEND: PRN DRESSING CHANGE IF BLISTERS OPEN/START DRAINING, DIETARY CONSULT, SKIN/WOUND CARE PLAN, ELEVATION OF BLE UP ONTO PILLOWS FOR EDEMA CONTROL, CONTINUED MONITORING BY WOUND CARE TEAM. Addendum: 11/12/18 at 1828 by Gabriela Villalba RN Amended: Links added.
[2018-11-12] MEDS: ASPirin-EC 81 mg tab PO SCH (10:59)
[2018-11-12] MEDS: POTASSIUM CHL 20 Meq TABLET PO SCH ×2 (10:59→22:19)
[2018-11-12] MEDS: SPIRONOLACTONE 25 MG TAB PO SCH (11:00)
[2018-11-12] MEDS: AMIODARONE HCL 200 MG TAB PO SCH ×2 (11:05→22:18)
--- NOTE | 2018-11-12 11:44 | NUR ---
Patient assisted to bedside commode tolerated well. Guards at bedside
[2018-11-12 13:00] VITALS: BP 92/60
--- NOTE | 2018-11-12 13:53 | NUR ---
AT BEDSIDE MD VOSS AT BEDSIDE, AWARE OF PATIENT'S STATUS, VS. NEW ORDERS RECEIVED FOR DOBUTAMINE DRIP. WILL MEDICATE ORDERED SOON DRIP AVAILABLE PER PHARMACY. CONT CARE
--- NOTE | 2018-11-12 14:55 | NUR ---
Respiratory note: PT ASSESSED FOR PRN MED NEB TX. POX 95% ON RA, HR 62, RR 20. PT REFUSES TO HAVE B/S LISTENED TO. NO SOB NOTED. PT IS AWARE TO PRESS THE CALL LIGHT IF HE FEELS SOB TO RECEIVE A MED NEB TX.
--- NOTE | 2018-11-12 15:15 | NUR ---
Awaiting Dobutamine from Pharmacy per Eduardo Pharmacist, still working on drip but will send one order first. Will medicate once medication obtained
[2018-11-12 16:14] LABS: Urine Bacteria NONE SEEN /hpf (None Seen); Urine Blood Negative /uL (Negative); Urine Hyaline Cast FEW /lpf (0 - 2); Urine Mucus FEW (None Seen); Urine Specific Gravity 1.021 (1.001-1.035); Urine Sperm PRESENT /hpf (None Seen); Urine WBC 4 /hpf (0 - 3)
[2018-11-12] MEDS: DOBUTamine 1000MCG/ML 250 ML IV SCH (16:15)
[2018-11-12 17:00] VITALS: BP 93/61
[2018-11-12] MEDS: WARFARIN SODIUM 2 MG TAB PO SCH (17:41)
[2018-11-12] MEDS: FUROSEMIDE 20 MG/2 ML VIAL IV SCH (17:53)
[2018-11-12 22:00] VITALS: BP 100/68
--- NOTE | 2018-11-12 22:36 | NUR ---
Respiratory note: NO PRN TX GIVEN AT THIS TIME, NOT INDICATED. PT SLEEPING COMFORTABLY. SPO2 93% ON RA, HR 82, RR 18.
[2018-11-13] MEDS: DOBUTamine 1000MCG/ML 250 ML IV SCH ×3 (02:43→17:58)
[2018-11-13 05:27] VITALS: BP 98/65
[2018-11-13] MEDS: FUROSEMIDE 20 MG/2 ML VIAL IV SCH ×2 (06:48→17:58)
--- NOTE | 2018-11-13 07:15 | NUR ---
PT. REFUSED MN. TX. THIS AM. PT. STATES THAT THEY MAKE HIM JITTERY. BS. ARE CLEAR AND DIMINISHED AT THE BASES. NO RESP. DISTRESS OR SOB NOTED. PT. INSTRUCTED TO CALL FOR PRN TX., NO TX. GIVEN AT THIS TIME.
--- NOTE | 2018-11-13 08:00 | NUR ---
Patient assisted up to c with stand by assist. Patient tolerated well. At this time bed zero'd. Will weight patient upon returning back to bed.
--- NOTE | 2018-11-13 08:25 | NUR ---
Spoke to Pharmacy regarding Dobutamine current weight is 92.7 kg, spoke to Dionisio pharmacist and notified. New order input and he will review new order for current weight and dose
[2018-11-13 09:17] VITALS: BP 103/70
[2018-11-13] MEDS: LISINOPRIL 5 MG TAB PO SCH (10:00)
[2018-11-13] MEDS: SPIRONOLACTONE 25 MG TAB PO SCH (10:11)
[2018-11-13] MEDS: ASPirin-EC 81 mg tab PO SCH (10:11)
[2018-11-13] MEDS: CARVEDILOL 3.125 MG TAB PO SCH (10:13)
[2018-11-13] MEDS: POTASSIUM CHL 20 Meq TABLET PO SCH ×2 (10:13→22:14)
[2018-11-13] MEDS: AMIODARONE HCL 200 MG TAB PO SCH ×2 (10:15→22:15)
[2018-11-13 11:18] LABS: INR 1.99 (0.9-1.15)
--- NOTE | 2018-11-13 12:53 | NUR ---
MD AT BEDSIDE Delonte PENALOZA AT BEDSIDE, AWARE OF PATIENT'S STATUS INCLUDING VS, DECREASE BP AT THIS TIME 94/67 HR 80. PER MD CONT DOBUTAMINE DRIP ORDERED.
[2018-11-13 13:00] VITALS: BP 94/65
[2018-11-13 17:21] VITALS: BP 99/51
[2018-11-13] MEDS: WARFARIN SODIUM 2 MG TAB PO SCH (17:35)
--- NOTE | 2018-11-13 19:15 | NUR ---
Patient care endorsed endorsed care to Nika cheng. Patient sole sethi, currently running Dobutamine as ordered. No acute distress or sob noted. Guards at bedside
--- NOTE | 2018-11-13 20:25 | NUR ---
Patient bathe/linen change Patient given complete bath per pt request, pt assisted, very weak. Skin integrity assessed for any changes. Linens changed. Patient states he wants to continue sitting on bedside commode, instructed to call when ready to get back to bed. Pt is an inmate, guards at bedside
[2018-11-13 21:58] VITALS: BP 107/70
[2018-11-13] MEDS: HYDROcodone-ACET 10/325MG TAB PO PRN (22:14)
[2018-11-14] VITALS (7 sets, daily range): BP systolic 97–139; BP diastolic 70–79
--- NOTE | 2018-11-14 01:38 | NUR ---
Rounds Patient awake and alert. No S/S of distress/SOB or pain. Will continue to monitor changes q1hr and PRN.
[2018-11-14] MEDS: DOBUTamine 1000MCG/ML 250 ML IV SCH ×3 (02:30→23:13)
[2018-11-14] MEDS: HYDROcodone-ACET 10/325MG TAB PO PRN ×2 (03:36→23:01)
--- NOTE | 2018-11-14 03:36 | NUR ---
Rounds Patient awake and alert. No S/S of distress/SOB, pt c/o 9/10 generalized pain, medicated with norco as ordered. Will continue to monitor changes q1hr and PRN.
[2018-11-14] MEDS: guaiFENesin-DM 100/10mg/5ml SYR PO PRN (04:06)
--- NOTE | 2018-11-14 04:06 | NUR ---
Rounds Patient awake and alert. No S/S of distress/SOB or pain. Pt medicated for cough. Will continue to monitor changes q1hr and PRN. Guards at bedside
[2018-11-14] MEDS: FUROSEMIDE 20 MG/2 ML VIAL IV SCH ×2 (05:20→17:47)
--- NOTE | 2018-11-14 07:00 | NUR ---
MD Called/paged Dr. Prater exchange called re:request for prn nausea medication, patient complained of nausea worsened with coughing . Waiting for call back. Continue care.
--- NOTE | 2018-11-14 08:00 | NUR ---
Opening Shift Note Assumed care of patient, awake and alert. No S/S of distress/SOB or pain. Instructed on POC and to call for assist PRN, will continue to monitor for changes Q1hr and PRN.
--- NOTE | 2018-11-14 08:22 | NUR ---
Respiratory note: PT AWAKE AND ALERT. NO RESPIRATORY DISTRESS NOTED. SPO2 95% ON RA, HR 76, RR18, BS CLEAR T/O. PRN MEDNEB TX NOT INDICATED AT THIS TIME. PT INFORMED TO PUSH CALL BUTTON IF INCREASED WOB, SOB, OR WHEEZING OCCURS. GUARDS AT BEDSIDE.
[2018-11-14] MEDS: CARVEDILOL 3.125 MG TAB PO SCH (09:23)
[2018-11-14] MEDS: POTASSIUM CHL 20 Meq TABLET PO SCH ×2 (09:23→22:55)
[2018-11-14] MEDS: ASPirin-EC 81 mg tab PO SCH (09:23)
[2018-11-14] MEDS: AMIODARONE HCL 200 MG TAB PO SCH ×3 (09:24→22:55)
[2018-11-14] MEDS: SPIRONOLACTONE 25 MG TAB PO SCH (09:25)
[2018-11-14] MEDS: LISINOPRIL 5 MG TAB PO SCH (09:26)
[2018-11-14 10:49] LABS: Basophils # (auto) 0 uL; Basophils % (auto) 0.3 % (0.0-2.0); Eosinophils # (auto) 0 uL; Eosinophils % (auto) 0.4 % (0.0-7.0); Hematocrit 50.6 % (41.0-53.0); Hemoglobin 16.3 g/dL (13.5-17.5); Lymphocytes # (auto) 0.9 uL; Lymphocytes % (auto) 19.6 % (10.0-50.0); Mean Corpuscular Hemoglobin 30.5 pg (28.0-32.0); Mean Corpuscular Hgb Conc. 32.1 g/dL (32.0-36.0); Mean Corpuscular Volume 94.9 fL (80.0-100.0); Monocytes # (auto) 0.5 uL; Monocytes % (auto) 10.3 % (0.0-12.0); Neutrophils # (auto) 3.2 uL; Neutrophils % (auto) 69.4 % (37.0-80.0); Nucleated Red Blood Cells % 0.4 %; Platelet Count (auto) 76 10^3/uL (140-450); Red Blood Cells 5.33 10^6/uL (4.5-5.90); Red Cell Distribution Width 19.1 % (11.8-14.3); White Blood Cell 4.6 10^3/uL (4.4-10.8)
[2018-11-14 11:09] LABS: INR 2.13 (0.9-1.15)
--- NOTE | 2018-11-14 12:03 | NUR ---
Paged Dr. Madden re: platelet 76. Waiting for call back.
--- NOTE | 2018-11-14 12:47 | NUR ---
Spoke to Lay PICC line nurse re: midline order.
--- NOTE | 2018-11-14 12:50 | NUR ---
Nutrition consult/Assessment Notes Please see attached link for complete assessment Est. Needs IBW 81 [id number] kcal (25-30 kcal/kgBW), 65-81 gms pro (0.8-1.0 gms/kgBW d/t elev RFT wounds). Will continue to monitor pertinent labs and reassess nutrient need prn. will reassess per dry body wt Addendum: 11/14/18 at [address] Amended: Links added.
--- NOTE | 2018-11-14 13:53 | NUR ---
Midline Placement Patient educated on need for midline placement. All risks and benefits explained and all questions and concerns addresses prior to procedure. 18g/10cm midline inserted via brachial vein using Ultrasound. Sterile technique utilized. Blood return obtained from single lumen and flushed easily with NS using proper technique. Midline secured with saline lock; biodisc and occlusive dressing applied. Primary RN notified. Midline lot #[id number].
--- NOTE | 2018-11-14 15:55 | NUR ---
auth # for JASON from [facility] at [facility] is [id number]
[2018-11-14] MEDS: WARFARIN SODIUM 2 MG TAB PO SCH (17:47)
--- NOTE | 2018-11-14 19:00 | NUR ---
Closing note Patient lying in bed, no signs of distress noted. Report given to night RN.
--- NOTE | 2018-11-14 20:10 | NUR ---
Opening Shift Note Assumed care of patient, awake and alert. No S/S of distress/SOB or pain. Instructed on POC and to call for assistance PRN, will continue to monitor for changes Q1hr and PRN. Guards at bedside
--- NOTE | 2018-11-14 22:47 | NUR ---
Respiratory note: ASSESSED PT FOR PRN MED NEB TX. PT IS CURRENTLY ON ROOM AIR: HR 82, RR 18, SPO2 98% WITH CLEAR/DIM BS. PT SHOWS NO S/S OF RESPIRATORY DISTRESS. MED NEB TX NOT INDICATED AT THIS TIME. WILL CONTINUE TO MONITOR.
--- NOTE | 2018-11-14 23:01 | NUR ---
Pain Management Pt medicated for c/o 10/ generalized pain,patient previously sleeping.Guards at bedside
[2018-11-15 05:06] VITALS: BP 110/80
[2018-11-15] MEDS: FUROSEMIDE 20 MG/2 ML VIAL IV SCH ×2 (06:19→18:00)
--- NOTE | 2018-11-15 07:30 | NUR ---
OPENING NOTE The patient is received alert and oriented times four with no SOB or s/s of distress at this time. The patient is resting in bed in the lowest position with call light within reach, will continue to monitor and POC.
--- NOTE | 2018-11-15 07:35 | NUR ---
Endorsed care to Fritz GROSS
--- NOTE | 2018-11-15 08:10 | NUR ---
Respiratory note: PRN MED NEB TX NOT INDICATED OR WANTED AT THIS TIME. HR 80,RR 14, SPO2 98% ON RA, BS CLEAR AND DIMINISHED. NO SIGNS OR SYMPTOMS OF RESPIRATORY DISTRESS NOTED. PT INFORMED TO HIT CALL BUTTON IF FEELING SOB OR WHEEZING.
[2018-11-15 08:56] VITALS: BP 110/76
[2018-11-15] MEDS: SPIRONOLACTONE 25 MG TAB PO SCH (10:27)
[2018-11-15] MEDS: AMIODARONE HCL 200 MG TAB PO SCH ×3 (10:27→21:54)
[2018-11-15] MEDS: DOBUTamine 1000MCG/ML 250 ML IV SCH ×3 (10:27→19:51)
[2018-11-15 10:28] LABS: Basophils # (auto) 0 uL; Basophils % (auto) 0.5 % (0.0-2.0); Eosinophils # (auto) 0 uL; Eosinophils % (auto) 0.7 % (0.0-7.0); Hematocrit 44.1 % (41.0-53.0); Hemoglobin 14.8 g/dL (13.5-17.5); Lymphocytes % (auto) 25.3 % (10.0-50.0); Mean Corpuscular Hemoglobin 31.3 pg (28.0-32.0); Mean Corpuscular Hgb Conc. 33.6 g/dL (32.0-36.0); Mean Corpuscular Volume 93.1 fL (80.0-100.0); Monocytes # (auto) 0.3 uL; Monocytes % (auto) 6.4 % (0.0-12.0); Neutrophils # (auto) 2.6 uL; Neutrophils % (auto) 67.1 % (37.0-80.0); Nucleated Red Blood Cells % 0.5 %; Platelet Count (auto) 78 10^3/uL (140-450); Red Blood Cells 4.73 10^6/uL (4.5-5.90); Red Cell Distribution Width 18.9 % (11.8-14.3); White Blood Cell 3.9 10^3/uL (4.4-10.8)
[2018-11-15] MEDS: ASPirin-EC 81 mg tab PO SCH (10:28)
[2018-11-15] MEDS: POTASSIUM CHL 20 Meq TABLET PO SCH ×2 (10:28→21:32)
[2018-11-15] MEDS: CARVEDILOL 3.125 MG TAB PO SCH (10:28)
[2018-11-15] MEDS: LISINOPRIL 5 MG TAB PO SCH (10:28)
--- NOTE | 2018-11-15 10:30 | NUR ---
PHYSICIAN BEDSIDE Dr. Travis Cortez is bedside and updates the patient on the POC.
[2018-11-15 10:40] LABS: INR 2.3 (0.9-1.15)
--- NOTE | 2018-11-15 12:30 | NUR ---
Rounds Patient awake and alert. No S/S of distress/SOB or pain. Will continue to monitor changes q1hr and PRN.
[2018-11-15 13:00] VITALS: BP 110/63
--- NOTE | 2018-11-15 13:27 | NUR ---
PICC line placement Patient other educated on need for PICC line placement by primary RN and MD. All risks and benefits explained and all questions and concerns addressed prior to procedure. Noted past medical history and allergies with no contraindications. INR and Plt counts within acceptable range. 5 fr PICC line inserted via right brachial vein using [employer] US and Tip Location System. Sterile technique with maximum barrier precautions utilized. Blood return obtained from each of the two lumens and each flushed easily with NS using proper technique. PICC secured with Stat-lock; biodisc and occlusive dressing applied. Stat portable chest x-ray obtained for PICC tip placement. *Baseline Arm Circumference 33 cm. *Internal Length 45 cm. *External Length 0 cm. *PICC lot #[id number]. Note: Tolerated well. EBL 10 mls.
--- NOTE | 2018-11-15 14:19 | NUR ---
Okay to Use PICC Line X-ray completed. Primary RN notofied.
--- NOTE | 2018-11-15 16:30 | NUR ---
Rounds Patient awake and alert. No S/S of distress/SOB or pain. Will continue to monitor changes q1hr and PRN.
[2018-11-15 17:00] VITALS: BP 95/63
[2018-11-15] MEDS: WARFARIN SODIUM 2 MG TAB PO SCH (18:24)
[2018-11-15] MEDS: Ensure Enlive Chocolate 8oz Bottle PO SCH (18:24)
[2018-11-15] MEDS: SODIUM CHLOR 0.9% PF (SALINE LOCK) 10ML VIAL/SYR IV SCH (21:50)
[2018-11-15] MEDS: HYDROcodone-ACET 10/325MG TAB PO PRN (22:48)
[2018-11-16 05:13] VITALS: BP 112/76
[2018-11-16] MEDS: FUROSEMIDE 20 MG/2 ML VIAL IV SCH ×2 (05:31→18:19)
--- NOTE | 2018-11-16 07:12 | NUR ---
Report given to Kayla Otero, patient is resting no distress.
[2018-11-16] MEDS: SPIRONOLACTONE 25 MG TAB PO SCH (08:01)
[2018-11-16] MEDS: ASPirin-EC 81 mg tab PO SCH (08:01)
[2018-11-16] MEDS: AMIODARONE HCL 200 MG TAB PO SCH ×2 (08:01→23:18)
[2018-11-16] MEDS: POTASSIUM CHL 20 Meq TABLET PO SCH (08:01)
[2018-11-16] MEDS: CARVEDILOL 3.125 MG TAB PO SCH (08:02)
[2018-11-16] MEDS: DOBUTamine 1000MCG/ML 250 ML IV SCH ×2 (08:03→18:19)
[2018-11-16 08:56] VITALS: BP 108/73
[2018-11-16] MEDS: LISINOPRIL 5 MG TAB PO SCH (10:00)
[2018-11-16] MEDS: Ensure Enlive Chocolate 8oz Bottle PO SCH ×3 (10:18→18:20)
[2018-11-16] MEDS: SODIUM CHLOR 0.9% PF (SALINE LOCK) 10ML VIAL/SYR IV SCH ×2 (10:18→22:45)
[2018-11-16 13:00] VITALS: BP 96/59
--- NOTE | 2018-11-16 13:42 | NUR ---
Dr. Delonte Cortez at bedside.
[2018-11-16 16:49] VITALS: BP 109/68
--- NOTE | 2018-11-16 17:24 | NUR ---
CALLED PHARMACY TO SEND DOBUTAMINE.
[2018-11-16 17:28] LABS: BUN/Creatinine Ratio 29.2; Calcium 7.5 mg/dL (8.5-10.1)
[2018-11-16 18:23] LABS: INR 2.23 (0.9-1.15)
[2018-11-16] MEDS: WARFARIN SODIUM 2 MG TAB PO SCH (18:28)
[2018-11-16] MEDS: HYDROcodone-ACET 10/325MG TAB PO PRN ×2 (19:10→23:20)
[2018-11-16 22:25] VITALS: BP 102/68
[2018-11-17] MEDS: DOBUTamine 1000MCG/ML 250 ML IV SCH ×3 (02:30→21:38)
[2018-11-17] MEDS: HYDROcodone-ACET 10/325MG TAB PO PRN ×2 (03:23→21:46)
[2018-11-17 05:28] VITALS: BP 115/71
[2018-11-17] MEDS: FUROSEMIDE 20 MG/2 ML VIAL IV SCH ×2 (05:57→17:21)
[2018-11-17 06:42] LABS: Basophils # (auto) 0 uL; Basophils % (auto) 0.6 % (0.0-2.0); Eosinophils # (auto) 0.1 uL; Eosinophils % (auto) 2.8 % (0.0-7.0); Hematocrit 44.8 % (41.0-53.0); Lymphocytes % (auto) 21.6 % (10.0-50.0); Mean Corpuscular Hemoglobin 30.9 pg (28.0-32.0); Mean Corpuscular Hgb Conc. 33.6 g/dL (32.0-36.0); Monocytes # (auto) 0.4 uL; Monocytes % (auto) 8.9 % (0.0-12.0); Neutrophils % (auto) 66.1 % (37.0-80.0); Nucleated Red Blood Cells % 0.2 %; Platelet Count (auto) 78 10^3/uL (140-450); Red Blood Cells 4.87 10^6/uL (4.5-5.90); Red Cell Distribution Width 18.6 % (11.8-14.3); White Blood Cell 4.5 10^3/uL (4.4-10.8)
[2018-11-17 07:02] LABS: BUN/Creatinine Ratio 29.9; Calcium 7.2 mg/dL (8.5-10.1); Potassium 4.9 mmol/L (3.5-5.1)
--- NOTE | 2018-11-17 07:25 | NUR ---
ENDORSED CARE OF PATIENT TO DAY SHIFT RN.
[2018-11-17] MEDS: Ensure Enlive Chocolate 8oz Bottle PO SCH ×3 (08:00→18:13)
[2018-11-17 09:00] VITALS: BP 112/66
[2018-11-17 09:52] LABS: INR 2.04 (0.9-1.15); Partial Thromboplastin Time 32.8 sec (23.64-32.05)
[2018-11-17] MEDS: SPIRONOLACTONE 25 MG TAB PO SCH (10:20)
[2018-11-17] MEDS: ASPirin-EC 81 mg tab PO SCH (10:21)
[2018-11-17] MEDS: LISINOPRIL 5 MG TAB PO SCH (10:21)
[2018-11-17] MEDS: AMIODARONE HCL 200 MG TAB PO SCH ×2 (10:21→21:35)
[2018-11-17] MEDS: CARVEDILOL 3.125 MG TAB PO SCH (10:22)
[2018-11-17] MEDS: SODIUM CHLOR 0.9% PF (SALINE LOCK) 10ML VIAL/SYR IV SCH ×2 (10:23→21:37)
[2018-11-17 13:00] VITALS: BP 122/77
--- NOTE | 2018-11-17 16:00 | NUR ---
Assessment Left foot dressing dry and intact. Patient no complaints of pain. Continue Dobutamine drip.
[2018-11-17] MEDS: WARFARIN SODIUM 2 MG TAB PO SCH (17:21)
--- NOTE | 2018-11-17 19:30 | NUR ---
OPENING SHIFT NOTE Pt in bed alert and oriented x 4 verbally coherent, able to make needs known. Pt's respiration even and unlabored, denies pain and discomfort at this time. Plan of care discussed, patient verbalized understanding. Guards at bedside.
[2018-11-17 21:23] VITALS: BP 91/61
[2018-11-18] MEDS: HYDROcodone-ACET 10/325MG TAB PO PRN ×3 (04:55→21:39)
[2018-11-18] MEDS: FUROSEMIDE 20 MG/2 ML VIAL IV SCH ×2 (05:24→18:08)
[2018-11-18 05:30] VITALS: BP 94/58
[2018-11-18] MEDS: DOBUTamine 1000MCG/ML 250 ML IV SCH ×3 (06:19→23:38)
[2018-11-18] MEDS: Ensure Enlive Chocolate 8oz Bottle PO SCH ×3 (08:00→18:00)
--- NOTE | 2018-11-18 08:00 | NUR ---
Opening Shift Note Assumed care of patient, awake and alert. No S/S of distress/SOB or pain. With left foot dressing intact, noted with minimal drainage. Residential guards at bedside. Instructed on POC and to call for assist PRN, will continue to monitor for changes Q1hr and PRN.
[2018-11-18 09:00] VITALS: BP 107/58
[2018-11-18 09:43] LABS: Calcium 7.7 mg/dL (8.5-10.1); Potassium 4.3 mmol/L (3.5-5.1)
[2018-11-18] MEDS: AMIODARONE HCL 200 MG TAB PO SCH ×2 (09:57→21:38)
[2018-11-18] MEDS: ASPirin-EC 81 mg tab PO SCH (09:57)
[2018-11-18] MEDS: SPIRONOLACTONE 25 MG TAB PO SCH (09:57)
[2018-11-18] MEDS: CARVEDILOL 3.125 MG TAB PO SCH (09:58)
[2018-11-18] MEDS: SODIUM CHLOR 0.9% PF (SALINE LOCK) 10ML VIAL/SYR IV SCH ×2 (10:00→21:38)
[2018-11-18] MEDS: LISINOPRIL 5 MG TAB PO SCH (10:00)
[2018-11-18 10:10] LABS: INR 1.53 (0.9-1.15)
--- NOTE | 2018-11-18 11:39 | NUR ---
Nutrition consult/Follow-up Notes Wt. 92.3 kg Pt. tolerating diet well without GI distress noted. Receives regular diet with Ensure Enlive QD for supplementation. Documented PO 100% x 3 days. Est. Needs (based on previous assessment) Calories/Kcals/Kg 25-30/kg IBW 81kg Kcals Calculated 2430 Proteing/K.8-1.0 Protein Calculated 81 g Labs: BUN 29H, ALT 62H, ALT 77H, ALB 2.6L Skin: Sheldon 18, intact GI: BM x 1 (11/17) PES: Altered nutrition related lab values r/t current chronic medical condition AEB elev RFT, hyperbil, mod hypoalb (ongoing) Plan of care: Monitor PO intake/tolerance, labs, skin integrity, follow up 3-5 days Recommendations: 1) Continue current regular diet and Ensure Enlive QD as ordered and as tolerated.
--- NOTE | 2018-11-18 12:09 | NUR ---
Change of dressing on left foot done.
--- NOTE | 2018-11-18 14:00 | NUR ---
PT at bedside.
[2018-11-18 17:16] VITALS: BP 106/61
[2018-11-18 17:20] VITALS: BP 100/62
[2018-11-18] MEDS: WARFARIN SODIUM 2 MG TAB PO SCH (18:08)
[2018-11-18 22:00] VITALS: BP 94/63
[2018-11-19 05:15] VITALS: BP 99/62
[2018-11-19] MEDS: FUROSEMIDE 20 MG/2 ML VIAL IV SCH ×2 (05:53→18:24)
[2018-11-19 08:07] LABS: Calcium 7.7 mg/dL (8.5-10.1); Potassium 4.2 mmol/L (3.5-5.1)
[2018-11-19 08:41] LABS: BUN/Creatinine Ratio 27.2
[2018-11-19 09:00] VITALS: BP 103/71
[2018-11-19 09:27] LABS: Basophils # (auto) 0 uL; Basophils % (auto) 0.5 % (0.0-2.0); Eosinophils # (auto) 0.1 uL; Eosinophils % (auto) 1.8 % (0.0-7.0); Hematocrit 40.4 % (41.0-53.0); Hemoglobin 13.5 g/dL (13.5-17.5); Lymphocytes # (auto) 0.9 uL; Mean Corpuscular Hemoglobin 30.7 pg (28.0-32.0); Mean Corpuscular Hgb Conc. 33.4 g/dL (32.0-36.0); Mean Corpuscular Volume 91.8 fL (80.0-100.0); Monocytes # (auto) 0.4 uL; Monocytes % (auto) 8.1 % (0.0-12.0); Neutrophils # (auto) 3.4 uL; Neutrophils % (auto) 70.6 % (37.0-80.0); Nucleated Red Blood Cells % 0.3 %; Platelet Count (auto) 75 10^3/uL (140-450); Red Cell Distribution Width 18.4 % (11.8-14.3); White Blood Cell 4.8 10^3/uL (4.4-10.8)
[2018-11-19] MEDS: Ensure Enlive Chocolate 8oz Bottle PO SCH ×3 (09:39→18:25)
[2018-11-19 09:41] LABS: INR 1.52 (0.9-1.15)
[2018-11-19] MEDS: SPIRONOLACTONE 25 MG TAB PO SCH (09:51)
[2018-11-19] MEDS: DOBUTamine 1000MCG/ML 250 ML IV SCH ×2 (09:51→18:40)
[2018-11-19] MEDS: SODIUM CHLOR 0.9% PF (SALINE LOCK) 10ML VIAL/SYR IV SCH ×2 (09:51→21:43)
[2018-11-19] MEDS: AMIODARONE HCL 200 MG TAB PO SCH ×2 (09:52→21:42)
[2018-11-19] MEDS: CARVEDILOL 3.125 MG TAB PO SCH (09:52)
[2018-11-19] MEDS: ASPirin-EC 81 mg tab PO SCH (09:53)
[2018-11-19] MEDS: LISINOPRIL 5 MG TAB PO SCH (09:53)
--- NOTE | 2018-11-19 10:28 | NUR ---
PT at bedside.
[2018-11-19] MEDS: HYDROcodone-ACET 10/325MG TAB PO PRN ×2 (10:29→15:45)
--- NOTE | 2018-11-19 12:00 | NUR ---
Dr. Delonte Cortez at bedside. Patient showed bloody sputum, about [address] Cortez stated "inform Dr. Prater that I recommend to stop Coumadin and Aspirin". Will inform Dr. Prater.
[2018-11-19 12:56] VITALS: BP 103/70
--- NOTE | 2018-11-19 15:04 | NUR ---
Spoke to Dr. Prater, informed him re: Dr. Delonte Cortez's recommendation to stop Coumadin and Aspirin as patient is spitting blood. Addendum: 11/19/18 at 1926 by JUANITO GARCIA RN Addendum: Dr. Prater stated "OK".
[2018-11-19 17:00] VITALS: BP 106/77
[2018-11-19] MEDS: WARFARIN SODIUM 2 MG TAB PO SCH (17:00)
[2018-11-19 22:00] VITALS: BP 112/78
[2018-11-20] MEDS: DOBUTamine 1000MCG/ML 250 ML IV SCH ×3 (03:58→22:36)
[2018-11-20 05:00] VITALS: BP 96/60
[2018-11-20] MEDS: FUROSEMIDE 20 MG/2 ML VIAL IV SCH ×2 (06:05→18:18)
[2018-11-20 06:25] LABS: Basophils # (auto) 0.1 uL; Basophils % (auto) 1.7 % (0.0-2.0); Eosinophils # (auto) 0.1 uL; Eosinophils % (auto) 2.8 % (0.0-7.0); Hematocrit 40.7 % (41.0-53.0); Hemoglobin 13.7 g/dL (13.5-17.5); Lymphocytes % (auto) 18.5 % (10.0-50.0); Mean Corpuscular Hemoglobin 30.8 pg (28.0-32.0); Mean Corpuscular Hgb Conc. 33.8 g/dL (32.0-36.0); Mean Corpuscular Volume 91.3 fL (80.0-100.0); Monocytes # (auto) 0.4 uL; Monocytes % (auto) 6.8 % (0.0-12.0); Neutrophils # (auto) 3.7 uL; Neutrophils % (auto) 70.2 % (37.0-80.0); Nucleated Red Blood Cells % 0.2 %; Platelet Count (auto) 80 10^3/uL (140-450); Red Blood Cells 4.45 10^6/uL (4.5-5.90); Red Cell Distribution Width 18.4 % (11.8-14.3); White Blood Cell 5.2 10^3/uL (4.4-10.8)
[2018-11-20 06:29] LABS: BUN/Creatinine Ratio 33.3; Calcium 7.9 mg/dL (8.5-10.1); Potassium 4.3 mmol/L (3.5-5.1)
[2018-11-20 09:00] VITALS: BP 103/67
[2018-11-20] MEDS: Ensure Enlive Chocolate 8oz Bottle PO SCH ×3 (09:15→18:09)
[2018-11-20] MEDS: SPIRONOLACTONE 25 MG TAB PO SCH (09:50)
[2018-11-20] MEDS: HYDROcodone-ACET 10/325MG TAB PO PRN (09:50)
[2018-11-20] MEDS: AMIODARONE HCL 200 MG TAB PO SCH ×2 (09:50→22:37)
[2018-11-20] MEDS: ASPirin-EC 81 mg tab PO SCH (10:00)
[2018-11-20] MEDS: LISINOPRIL 5 MG TAB PO SCH (10:00)
--- NOTE | 2018-11-20 10:00 | NUR ---
Patient states that he still has blood in his sputum.
[2018-11-20] MEDS: SODIUM CHLOR 0.9% PF (SALINE LOCK) 10ML VIAL/SYR IV SCH ×2 (10:30→22:37)
[2018-11-20] MEDS: CARVEDILOL 3.125 MG TAB PO SCH (10:30)
[2018-11-20 10:34] LABS: INR 1.31 (0.9-1.15); Partial Thromboplastin Time 29.3 sec (23.64-32.05)
--- NOTE | 2018-11-20 11:46 | NUR ---
WOUND CARE NOTE: Wound care in to see patient for reevaluation of wounds.Patient continue resting in ADS bed in Rm. [id number]. Patient is awake, alert and able to verbalize needs. He's able to move, turn and reposition self. His current Sheldon score is 18. Patient's BLE edema looks improving. His bilateral heel continue to display serum filled blister. L heel blisters opened and draining moderate amount of serous drainage, cleansed and changed the dressing as ordered. New photograph of wounds are taken for reference. Elevated BLE on pillows. Patient tolerated well. RECOMMENDATION: Continuation of all wound care orders prescribed by MD, continue with skin/wound plan of care, continue monitoring by wound care while patient is hospitalized. Addendum: 11/20/18 at 1526 by Lizz Schilling RN Amended: Links added.
[2018-11-20 13:00] VITALS: BP 109/76
--- NOTE | 2018-11-20 13:30 | NUR ---
CALLED PHARMACY TO SEND DOBUTAMINE DRIP.
--- NOTE | 2018-11-20 14:45 | NUR ---
FOLLOWED UP PHARMACY TO SEND DOBUTAMINE DRIP.
[2018-11-20 17:00] VITALS: BP 111/73
[2018-11-20] MEDS: WARFARIN SODIUM 2 MG TAB PO SCH (17:00)
--- NOTE | 2018-11-20 17:31 | NUR ---
Paged Dr. Prater re: verify if he wants to stop Aspirin and Coumadin.
--- NOTE | 2018-11-20 18:19 | NUR ---
Blood-streaked sputum noted.
--- NOTE | 2018-11-20 19:15 | NUR ---
Opening Shift Note Received report from geovanny Otero RN. Assumed care of patient, awake and alert. No S/S of distress/SOB or pain. Guards at bedside. Instructed on POC and to call for assist PRN, will continue to monitor for changes Q1hr and PRN.
[2018-11-20 21:00] VITALS: BP 108/66
[2018-11-20] MEDS: guaiFENesin-DM 100/10mg/5ml SYR PO PRN (22:38)
[2018-11-21 04:30] VITALS: BP 102/75
[2018-11-21] MEDS: FUROSEMIDE 20 MG/2 ML VIAL IV SCH (05:39)
--- NOTE | 2018-11-21 06:27 | NUR ---
ROUNDS PATIENT IS ALERT AND AWAKE, NO DISTRESS NOTED AND PATIENT DENIES PAIN. PATIENT IS SATURATING AT 97% ON ROOM AIR.
[2018-11-21 06:28] LABS: INR 1.31 (0.9-1.15); Partial Thromboplastin Time 28.4 sec (23.64-32.05)
[2018-11-21 06:36] LABS: Calcium 8.1 mg/dL (8.5-10.1); Potassium 4.1 mmol/L (3.5-5.1)
[2018-11-21 06:38] LABS: BUN/Creatinine Ratio 26.8
[2018-11-21] MEDS: DOBUTamine 1000MCG/ML 250 ML IV SCH ×3 (06:59→23:20)
--- NOTE | 2018-11-21 07:30 | NUR ---
OPENING SHIFT NOTE RECEIVED RE[facility] FROM [facility], ASSUMED CARE OF PATIENT. PATIENT IS A&OX4 WITH NO C/O PAIN OR DISTRESS AT THIS TIME. BED IS IN LOW POSITION, BRAKES APPLIED, BED RAILS UP X2, GUARDS AT BEDSIDE, CALL LIGHT WITHIN REACH. EDUCATED PATIENT ON POC AND CALL LIGHT USE PRN, PATIENT VERBALIZED UNDERSTANDING. CONTINUING TO MONITOR Q1 HR AND PRN
[2018-11-21] MEDS: Ensure Enlive Chocolate 8oz Bottle PO SCH ×3 (08:00→17:47)
[2018-11-21] MEDS: LISINOPRIL 5 MG TAB PO SCH (10:00)
[2018-11-21] MEDS: AMIODARONE HCL 200 MG TAB PO SCH ×2 (10:50→22:05)
[2018-11-21] MEDS: SODIUM CHLOR 0.9% PF (SALINE LOCK) 10ML VIAL/SYR IV SCH ×2 (10:50→22:04)
[2018-11-21] MEDS: SPIRONOLACTONE 25 MG TAB PO SCH ×2 (10:50→17:20)
[2018-11-21] MEDS: CARVEDILOL 3.125 MG TAB PO SCH (10:51)
[2018-11-21 13:00] VITALS: BP 100/67
--- NOTE | 2018-11-21 13:15 | NUR ---
AT BEDSIDE DR DOCKERY AT BEDSIDE
[2018-11-21] MEDS: HYDROcodone-ACET 10/325MG TAB PO PRN (15:38)
[2018-11-21 16:56] VITALS: BP 118/80
--- NOTE | 2018-11-21 17:00 | NUR ---
PHYSICAL THERAPY PATIENT AMBULATED 7 FEET WITH PT AND USE OF WALKER, NO C/O PAIN OR DISTRESS NOTED, PATIENT TOLERATED WELL
[2018-11-21] MEDS: FUROSEMIDE 40 MG/4 ML VIAL IV SCH (17:19)
--- NOTE | 2018-11-21 19:24 | NUR ---
Opening Shift Note Assumed care of patient, awake and alert x 4. No S/S of distress/SOB or pain. Bed is in lowest position and locked. Call light within reach. Board updated. Tele box number matches monitor and leads are in correct placement. Guards at bedside. Patient shacked to bed by both ankles and let wrist. Instructed on POC and to call for assist PRN, will continue to monitor for changes Q1hr and PRN. Addendum: 11/22/18 at 0033 by JACQUIE ANDERSON RN Dobutamine infusing at 27.81 ml/hr per MD order.
[2018-11-21 21:56] VITALS: BP 99/71
[2018-11-21] MEDS: guaiFENesin-DM 100/10mg/5ml SYR PO PRN (23:21)
[2018-11-21] MEDS: ONDANSETRON HCL 4 MG/2 ML VIAL IV PRN (23:21)
[2018-11-22] MEDS: ONDANSETRON HCL 4 MG/2 ML VIAL IV PRN ×3 (01:41→23:19)
[2018-11-22] MEDS: FUROSEMIDE 40 MG/4 ML VIAL IV SCH ×4 (06:00→21:58)
[2018-11-22] MEDS: SPIRONOLACTONE 25 MG TAB PO SCH ×2 (06:00→18:00)
[2018-11-22] MEDS: Ensure Enlive Chocolate 8oz Bottle PO SCH ×3 (08:05→18:00)
[2018-11-22 08:19] LABS: BUN/Creatinine Ratio 30.6; Calcium 8.2 mg/dL (8.5-10.1)
[2018-11-22] MEDS: DOBUTamine 1000MCG/ML 250 ML IV SCH ×2 (08:30→18:09)
[2018-11-22] MEDS: LISINOPRIL 5 MG TAB PO SCH (10:00)
[2018-11-22] MEDS: AMIODARONE HCL 200 MG TAB PO SCH ×2 (10:06→21:58)
[2018-11-22] MEDS: SODIUM CHLOR 0.9% PF (SALINE LOCK) 10ML VIAL/SYR IV SCH ×2 (10:06→21:58)
[2018-11-22] MEDS: CARVEDILOL 3.125 MG TAB PO SCH (10:07)
--- NOTE | 2018-11-22 12:32 | NUR ---
C/O PAIN Patient c/o "sharp cp" VSS bp 95/69 hr78 rr20 o2 100% on room air. Sinus rhythm on tele monitor. No s/s of distress noted. Patient states he "threw up" emesis bag noted empty and patient noted to have gagged twice with no emesis noted. Medicated for nausea as ordered. Patient refused pain medications as he states "cp is gone now". Will cont to monitor.
[2018-11-22 13:00] VITALS: BP 95/69
--- NOTE | 2018-11-22 16:00 | NUR ---
PICC dressing changed PICC dressing changed as ordered. Sterile technique with maximum barrier precautions utilized. Each lumen flushed easily with NS using proper technique. PICC secured with Stat-lock; biodisc and occlusive dressing applied. Patient tolerated well. Dobutamine continued as ordered. Will cont care
[2018-11-22 17:00] VITALS: BP 100/69
--- NOTE | 2018-11-22 19:28 | NUR ---
Assumed care of patient, awake and alert x 4. No S/S of distress/SOB or pain. Bed is in lowest position and locked. Call light within reach. Board updated. Tele box number matches monitor and leads are in correct placement. Guards at bedside. Patient shacked to bed by both ankles and let wrist. Instructed on POC and to call for assist PRN, will continue to monitor for changes Q1hr and PRN. Dobutamine infusing at 27.81 ml/hr per MD order.
[2018-11-22 21:56] VITALS: BP 105/72
--- NOTE | 2018-11-22 21:58 | NUR ---
Wound Care performed. Removed soiled bandages to bilateral lower extremities. Bother lower extremities have 2+ pitting edema. Bilateral blisters to both heels. Skin tear to left heel. Prodigious weeping of serous fluid. Cleansed wounds with wound cleanser and covered with Optifoam. Wrapped bilateral heels and lower legs in Kerlix wrap. Name, date, and initials placed on tape securing wraps. Patient tolerated well.
[2018-11-22] MEDS: HYDROcodone-ACET 10/325MG TAB PO PRN (23:01)
[2018-11-22] MEDS: guaiFENesin-DM 100/10mg/5ml SYR PO PRN (23:18)
--- NOTE | 2018-11-22 23:24 | NUR ---
Dr. Cortez in to see patient.
--- NOTE | 2018-11-22 23:36 | NUR ---
Dr Cortez ordered Afrin nasal spray, 1 spray for each nostril BID PRN nasal congestion. Order, repeated, verified, and placed.
[2018-11-23] MEDS: OXYMETAZOLINE HCL 0.05 % NASAL SPRAY 15ML PRN ×2 (00:07→21:33)
[2018-11-23] MEDS: DOBUTamine 1000MCG/ML 250 ML IV SCH ×3 (02:28→21:31)
[2018-11-23 05:00] VITALS: BP 95/58
[2018-11-23] MEDS: SPIRONOLACTONE 25 MG TAB PO SCH ×2 (05:53→18:28)
[2018-11-23] MEDS: FUROSEMIDE 40 MG/4 ML VIAL IV SCH ×3 (05:53→21:54)
[2018-11-23 07:17] LABS: BUN/Creatinine Ratio 27.4; Calcium 8.2 mg/dL (8.5-10.1); Potassium 4.3 mmol/L (3.5-5.1)
[2018-11-23] MEDS: Ensure Enlive Chocolate 8oz Bottle PO SCH ×3 (08:00→18:00)
[2018-11-23 08:55] VITALS: BP 97/68
[2018-11-23] MEDS: AMIODARONE HCL 200 MG TAB PO SCH ×2 (09:55→23:02)
[2018-11-23] MEDS: CARVEDILOL 3.125 MG TAB PO SCH (09:56)
[2018-11-23] MEDS: LISINOPRIL 5 MG TAB PO SCH (09:56)
[2018-11-23] MEDS: SODIUM CHLOR 0.9% PF (SALINE LOCK) 10ML VIAL/SYR IV SCH ×2 (09:56→21:32)
[2018-11-23 13:00] VITALS: BP 88/60
--- NOTE | 2018-11-23 16:48 | NUR ---
Patient rounds c/o ants in the room, ants found crawling up in the bed from the floor and wall. Patient moved to bed #6. Provided patient with wash cloths, shampoo and cleaning supplies, new gown and new bed. plaster patternmakerskylar Bhatti notified and she paged engineering so that they can spay room. Will cont to monitor
[2018-11-23 17:00] VITALS: BP 98/68
--- NOTE | 2018-11-23 18:51 | NUR ---
Spoke to MD MD Prater aware of patient's status including decreased bp and meds held. No new orders received at this time. Cont current treatment. Will endorse care to oncoming rn
--- NOTE | 2018-11-23 19:00 | NUR ---
Patient care endorsed endorsed care to Andrea rn. Patient laying in no acute distress or sob noted. Guards at bedside
--- NOTE | 2018-11-23 19:26 | NUR ---
Opening Shift Note Assumed care of patient, awake, alert and using BSC. No S/S of distress/SOB or pain. Dobutamine drip is running. Instructed on POC and to call for assist as needed. Guards at bedside. Will continue to monitor.
[2018-11-23] MEDS: HYDROcodone-ACET 10/325MG TAB PO PRN (21:33)
[2018-11-23 22:00] VITALS: BP 97/71
[2018-11-23] MEDS: ONDANSETRON HCL 4 MG/2 ML VIAL IV PRN (23:15)
[2018-11-23] MEDS: guaiFENesin-DM 100/10mg/5ml SYR PO PRN (23:16)
--- NOTE | 2018-11-24 04:10 | NUR ---
New Optifoam and Kerlix placed on left ankle/heel. Blister is draining small amount of serous fluid.
[2018-11-24 05:00] VITALS: BP 103/72
[2018-11-24] MEDS: FUROSEMIDE 40 MG/4 ML VIAL IV SCH ×3 (05:52→21:50)
[2018-11-24] MEDS: DOBUTamine 1000MCG/ML 250 ML IV SCH ×3 (05:52→23:30)
[2018-11-24] MEDS: SPIRONOLACTONE 25 MG TAB PO SCH ×2 (05:52→17:53)
--- NOTE | 2018-11-24 07:45 | NUR ---
OPENING SHIFT NOTE PATIENT LAYING IN BED WITH EYES CLOSED CHEST RISE AND FALL VISUALIZED SHOWING NO S/S OF DISTRESS SOB. GUARDS AT BEDSIDE. WILL CONTINUE TO MONITOR
[2018-11-24] MEDS: Ensure Enlive Chocolate 8oz Bottle PO SCH ×3 (08:00→18:00)
[2018-11-24 08:39] VITALS: BP 104/69
[2018-11-24] MEDS: SODIUM CHLOR 0.9% PF (SALINE LOCK) 10ML VIAL/SYR IV SCH ×2 (09:38→21:51)
[2018-11-24] MEDS: AMIODARONE HCL 200 MG TAB PO SCH ×2 (09:39→21:51)
[2018-11-24] MEDS: LISINOPRIL 5 MG TAB PO SCH (09:40)
[2018-11-24] MEDS: CARVEDILOL 3.125 MG TAB PO SCH (09:40)
--- NOTE | 2018-11-24 11:43 | NUR ---
Nutrition consult/Follow-up Notes Wt. 91.3 kg Pt. noted with decreased appetite, with some nausea several days ago. No reports of GI distress at this time. PO 25-100% x 3 days. Continues to receive regular diet with Ensure QD. Est. Needs (based on previous assessment) Calories/Kcals/Kg 25-30/kg IBW 81kg Kcals Calculated 2430 Proteing/K.8-1.0 Protein Calculated 81 g Labs: Na 133L, BUN 34H, Ca 8.2L, POC 77-188 mg/dL; most <180 mg/dL Skin: Sheldon 15, mod risk GI: BM x 1 (11/17) PES: Altered nutrition related lab values r/t current chronic medical condition AEB elev RFT, hyperbil, mod hypoalb (ongoing) Plan of care: Monitor PO intake/tolerance, labs, skin integrity, follow up 3-5 days Recommendations: 1) Continue current regular diet and Ensure Enlive QD as ordered and as tolerated. If PO intake <75% estimated needs on following assessment, consider increasing Ensure frequency
[2018-11-24 13:00] VITALS: BP 103/61
[2018-11-24] MEDS: HYDROcodone-ACET 10/325MG TAB PO PRN ×2 (15:00→20:27)
[2018-11-24 17:00] VITALS: BP 96/67
--- NOTE | 2018-11-24 18:54 | NUR ---
END OF SHIFT NOTE PATIENT AWAKE ALERT AND ORIENTED X4 DENIES SOB OR ANY DISTRESS. DRESSING CHANGED TO LEFT HEAL. GAUZED MODERATELY SATURATED WITH SEROSANGUINEOUS FLUID.PATIENT TOLERATED WELL. BED IN LOWEST LOCKED POSITION CALL LIGHT WITHIN REACH. ENDORSE CARE TO NOC RN
--- NOTE | 2018-11-24 19:30 | NUR ---
Opening Shift Note Assumed care of patient, awake and alert.Slower to respond at times. Delayed. Edema to BLE +3. Dressings intact. No S/S of distress/SOB or pain.Dobutamine infusing per orders. PICC dressing clean dry and intact Instructed on POC and to call for assist PRN, will continue to monitor for changes Q1hr and PRN.
[2018-11-24 21:30] VITALS: BP 91/63
--- NOTE | 2018-11-25 | NUR ---
Changed dressing to left heel. Weeping serous fluid. Complains of pain to left foot 7-10. Using urinal. Guards at bedside. Skin under shackles BLE clean, dry and intact. Shackle to left wrist skin intact.
[2018-11-25] MEDS: HYDROcodone-ACET 10/325MG TAB PO PRN (00:43)
[2018-11-25 05:33] VITALS: BP 89/66
[2018-11-25] MEDS: FUROSEMIDE 40 MG/4 ML VIAL IV SCH ×4 (05:55→22:55)
[2018-11-25] MEDS: SPIRONOLACTONE 25 MG TAB PO SCH ×2 (06:00→18:11)
--- NOTE | 2018-11-25 07:00 | NUR ---
Held diuretics this am due to low BP 89/66. Respirations even and non labored. No distress noted
--- NOTE | 2018-11-25 07:50 | NUR ---
OPENING SHIFT NOTE PATIENT AWAKE ALERT AND ORIENTED X4. DENIES ANY PAIN, DISTRESS OR SOB. BED IN LOWEST LOCKED POSITION CALL LIGHT WITHIN REACH. POC DISCUSSED PATIENT VERBALIZED UNDERSTANDING. GUARDS AT BEDSIDE. WILL CONTINUE TO MONITOR
[2018-11-25] MEDS: Ensure Enlive Chocolate 8oz Bottle PO SCH ×3 (08:00→18:11)
[2018-11-25 09:00] VITALS: BP 97/69
[2018-11-25] MEDS: AMIODARONE HCL 200 MG TAB PO SCH ×3 (09:56→22:59)
[2018-11-25] MEDS: CARVEDILOL 3.125 MG TAB PO SCH (09:57)
[2018-11-25] MEDS: DOBUTamine 1000MCG/ML 250 ML IV SCH ×2 (09:57→18:11)
[2018-11-25] MEDS: LISINOPRIL 5 MG TAB PO SCH (09:57)
[2018-11-25] MEDS: SODIUM CHLOR 0.9% PF (SALINE LOCK) 10ML VIAL/SYR IV SCH ×2 (09:58→22:44)
[2018-11-25 13:00] VITALS: BP 97/64
[2018-11-25 17:00] VITALS: BP 100/71
--- NOTE | 2018-11-25 19:15 | NUR ---
received report from day rn poc reviewed
[2018-11-25 22:00] VITALS: BP 97/65
--- NOTE | 2018-11-26 | NUR ---
Received report from uriel Mariscal RN. Patient is alert and awake, no distress noted saturating at 96% on room air.
--- NOTE | 2018-11-26 00:18 | NUR ---
report given to uriel rn poc reviewed
[2018-11-26] MEDS: HYDROcodone-ACET 10/325MG TAB PO PRN (01:26)
[2018-11-26] MEDS: guaiFENesin-DM 100/10mg/5ml SYR PO PRN (02:05)
[2018-11-26] MEDS: DOBUTamine 1000MCG/ML 250 ML IV SCH ×4 (02:06→21:54)
[2018-11-26 05:00] VITALS: BP 94/69
[2018-11-26] MEDS: FUROSEMIDE 40 MG/4 ML VIAL IV SCH ×3 (06:49→21:53)
[2018-11-26] MEDS: SPIRONOLACTONE 25 MG TAB PO SCH ×2 (06:49→18:05)
--- NOTE | 2018-11-26 07:30 | NUR ---
Opening Shift Note Assumed care of patient, awake and alert. No S/S of distress/SOB or pain. Instructed on POC and to call for assist PRN, will continue to monitor for changes Q1hr and PRN. Bed in low and locked position, rails up x2, no-slip socks on, guards at bedside, skin to extremities with cuffs are intact upon assessment, paced bilateral lower extremities up on pillows.
[2018-11-26 09:00] VITALS: BP 117/62
[2018-11-26] MEDS: AMIODARONE HCL 200 MG TAB PO SCH ×2 (09:33→21:53)
[2018-11-26] MEDS: LISINOPRIL 5 MG TAB PO SCH (09:34)
[2018-11-26] MEDS: CARVEDILOL 3.125 MG TAB PO SCH (09:34)
[2018-11-26] MEDS: SODIUM CHLOR 0.9% PF (SALINE LOCK) 10ML VIAL/SYR IV SCH ×2 (09:35→21:53)
[2018-11-26] MEDS: Ensure Enlive Chocolate 8oz Bottle PO SCH ×3 (09:36→18:19)
[2018-11-26 13:00] VITALS: BP 97/60
--- NOTE | 2018-11-26 13:20 | NUR ---
DR DOCKERY AT BEDSIDE NEW ORDERS ADDED FOR NASAL SPRAY
--- NOTE | 2018-11-26 15:20 | NUR ---
DR Travis VOSS AT BEDSIDE NO NEW ORDERS
[2018-11-26 17:00] VITALS: BP 97/68
--- NOTE | 2018-11-26 19:47 | NUR ---
Opening Note Assumed pt care from day shift nurse. Pt is a/ox4 with no s/s of distress or SOB. Pt is currently laying in bed with no complaints. Discussed POC with pt; pt verbalized understanding. Pt's BLE are 3+ pitting edema current their current dressings on. Dobutamine is currently running. Safety measures maintained with call light within reach, bed in lowest position and side rails up. Will continue to monitor for changes q1hr and prn.
[2018-11-26] MEDS: FLUTICASONE PROP NASAL SPR 0.05 % (50MCG) 16GM EACHNOSTRI SCH (21:53)
[2018-11-26 22:00] VITALS: BP 95/65
[2018-11-27] VITALS (7 sets, daily range): BP systolic 81–99; BP diastolic 41–70
[2018-11-27] MEDS: HYDROcodone-ACET 10/325MG TAB PO PRN ×2 (00:36→23:58)
--- NOTE | 2018-11-27 01:04 | NUR ---
Tele Monitor Alert of V-Tach Tele monitor alerted that the pt was experiencing a run of V tach for 5 beats. At this time, the pt is asymptomatic with a HR of 86, BP 91/61 and 96% on RA. Placed the 5 beat stip in the chart. Will continue to monitor for changes.
--- NOTE | 2018-11-27 05:22 | NUR ---
Low BP Morning VS reported low BP of 81/58. Reassessed pt; current BP is 90/66 while pt was sitting on edge of bed. Pt has no complaints other than some feelings of nausea. Will continue to monitor for changes.
[2018-11-27] MEDS: ONDANSETRON HCL 4 MG/2 ML VIAL IV PRN (05:30)
[2018-11-27] MEDS: FUROSEMIDE 40 MG/4 ML VIAL IV SCH ×3 (05:31→21:40)
[2018-11-27] MEDS: SPIRONOLACTONE 25 MG TAB PO SCH ×2 (05:31→18:45)
--- NOTE | 2018-11-27 05:36 | NUR ---
Morning Diuretics Held Withheld pt's morning diuretics due to decreased BP of 81/58. Reassessed pt; BP is 90/66 and HR of 83bpm upon sitting at the edge of the bed. Pt is asymptomatic. Will continue to monitor for changes.
[2018-11-27] MEDS: Ensure Enlive Chocolate 8oz Bottle PO SCH ×3 (08:00→18:03)
--- NOTE | 2018-11-27 08:30 | NUR ---
SKIN ASSESSED PATIENT, BLE EDEMA +4, DRESSING NOTED TO BILATERAL FEET, DRESSING CDI, NOTED IN CHART BLISTERS TO BILATERAL HEELS, ASSESSED SACRUM AND NOTED AN OPEN MOIST AREA, SITE PINK AND PALE, ALSO ON LEFT BUTTOCKS A DARKENED AREA/SCAR, PT ABLE TO DEMONSTRATE HOW TO TURN SELF, INSTRUCTED TO TURN FREQUENTLY TO AVOID PRESSURE ULCER, PT VERBALIZED UNDERSTANDING, CONT CARE
[2018-11-27] MEDS: FLUTICASONE PROP NASAL SPR 0.05 % (50MCG) 16GM EACHNOSTRI SCH (09:57)
[2018-11-27] MEDS: AMIODARONE HCL 200 MG TAB PO SCH ×2 (09:57→21:40)
[2018-11-27] MEDS: CARVEDILOL 3.125 MG TAB PO SCH (09:57)
[2018-11-27] MEDS: SODIUM CHLOR 0.9% PF (SALINE LOCK) 10ML VIAL/SYR IV SCH ×2 (09:58→21:41)
[2018-11-27] MEDS: LISINOPRIL 5 MG TAB PO SCH (10:00)
[2018-11-27 10:43] LABS: BUN/Creatinine Ratio 25.8; Calcium 8.2 mg/dL (8.5-10.1); Potassium 4.1 mmol/L (3.5-5.1)
--- NOTE | 2018-11-27 11:15 | NUR ---
Nutrition Follow-up Notes Wt. 95.3 kg Pt. appetite improved since previous assessment with documented PO intake 75-100% x 3 days. Good tolerance to diet without GI distress reported. Continues to receive regular diet with Ensure TID. Est. Needs (based on previous assessment): Recalculate PRN for changes in estimated needs. Calories/Kcals/Kg 25-30/kg IBW 81kg Kcals Calculated 2430 Proteing/K.8-1.0 Protein Calculated 81 g Labs: Na 133L, BUN 34H, Ca 8.2L, POC 77-188 mg/dL; most <180 mg/dL. No new since 11/23/18 Skin: Sheldon 21, low risk GI: BM x 1 (11/27) PES: Altered nutrition related lab values r/t current chronic medical condition AEB elev RFT, hyperbil, mod hypoalb (ongoing) Plan of care: Monitor PO intake/tolerance, labs, skin integrity, follow up 3-5 days Recommendations: 1) Continue current regular diet and Ensure Enlive TID as ordered and as tolerated. 2) Continue POC as ordered
[2018-11-27] MEDS: DOBUTamine 1000MCG/ML 250 ML IV SCH ×2 (15:06→23:58)
--- NOTE | 2018-11-27 18:16 | NUR ---
CARDIOLOGY DR Travis VOSS AT BEDSIDE, DISCUSSING POC WITH PT, PT AXOX4, SITTING UP ON THE SIDE OF THE BED, NO DISTRESS NOTED AT THIS TIME, CONT CARE
--- NOTE | 2018-11-27 19:10 | NUR ---
PT REQUESTING ROBITUSSIN C/O COUGH CALLED DR Travis VOSS, MAIL BOX IS FULL AND UNABLE TO LEAVE A MESSAGE, WILL ENDORSE TO NIGHT RN TO PAGE DR DOCKERY
--- NOTE | 2018-11-27 19:57 | NUR ---
Opening Note Assumed pt care from day shift RN. Pt is a/ox4 with no s/s of distress or SOB. Pt is currently sitting on the edge of his bed with no complaints. Pt has current dressings on to both lower extremities. 2+ pitting edema noted to both extremities; pedal pulses are weak upon palpation. Discussed POC with pt; pt verbalized understanding. Safety measures maintained with call light within reach, bed in lowest position and side rails up. Will continue to monitor for changes q1hr and prn.
--- NOTE | 2018-11-27 23:18 | NUR ---
Wound Care Reinforced wound care to pt's bilateral lower extremities. Dressings are currently free from any drainage. Elevated pt's legs. Pt tolerated well.
[2018-11-28 05:00] VITALS: BP 89/61
[2018-11-28] MEDS: FUROSEMIDE 40 MG/4 ML VIAL IV SCH ×3 (06:00→22:00)
[2018-11-28] MEDS: SPIRONOLACTONE 25 MG TAB PO SCH ×2 (06:00→18:03)
--- NOTE | 2018-11-28 06:30 | NUR ---
Morning Diuretics Held Pt's BP this morning is 89/61; therefore medications withheld. Pt is currently sleeping and is asymptomatic. Respirations are even and unlabored. Will continue to monitor.
[2018-11-28] MEDS: Ensure Enlive Chocolate 8oz Bottle PO SCH ×3 (08:00→18:02)
[2018-11-28 09:00] VITALS: BP 95/65
--- NOTE | 2018-11-28 09:12 | NUR ---
CARDIOLOGY DR Travis VOSS AT BEDSIDE, DISCUSSING POC WITH PT, CONT CARE
[2018-11-28] MEDS: FLUTICASONE PROP NASAL SPR 0.05 % (50MCG) 16GM EACHNOSTRI SCH (10:00)
[2018-11-28] MEDS: SODIUM CHLOR 0.9% PF (SALINE LOCK) 10ML VIAL/SYR IV SCH ×2 (10:00→22:19)
[2018-11-28] MEDS: LISINOPRIL 5 MG TAB PO SCH (10:47)
[2018-11-28] MEDS: CARVEDILOL 3.125 MG TAB PO SCH (10:47)
[2018-11-28] MEDS: DOBUTamine 1000MCG/ML 250 ML IV SCH ×3 (10:47→22:19)
[2018-11-28] MEDS: AMIODARONE HCL 200 MG TAB PO SCH ×2 (10:48→22:03)
[2018-11-28 12:28] VITALS: BP 113/63
[2018-11-28 16:51] VITALS: BP 100/57
--- NOTE | 2018-11-28 19:20 | NUR ---
Opening Shift Note Received report from geovanny Marroquin RN. Assumed care of patient, awake and alert, sitting up in bed in a semi-fowlers position. No S/S of distress/SOB or pain. Instructed on POC and to call for assist PRN, will continue to monitor for changes Q1hr and PRN.
--- NOTE | 2018-11-28 22:00 | NUR ---
LASIX HELD DUE TO LOW BLOOD PRESSURE OF 78/59 AND 80/57 RESPECTIVELY. PATIENT CONTINUES ON DOBUTAMINE DRIPS. WILL MONITOR
[2018-11-28] MEDS: HYDROcodone-ACET 10/325MG TAB PO PRN (22:02)
[2018-11-28 23:54] VITALS: BP 81/60
[2018-11-29] MEDS: guaiFENesin-DM 100/10mg/5ml SYR PO PRN (00:59)
[2018-11-29] MEDS: SPIRONOLACTONE 25 MG TAB PO SCH ×2 (05:40→18:46)
[2018-11-29] MEDS: FUROSEMIDE 40 MG/4 ML VIAL IV SCH ×3 (05:41→22:00)
--- NOTE | 2018-11-29 05:55 | NUR ---
PHOTO TAKEN TO MID BUTTOCKS
--- NOTE | 2018-11-29 06:00 | NUR ---
PATIENT IS ALERT AND ORIENTED, NO DISTRESS NOTED SATURATING AT 95% ON ROOM AIR. WILL MONITOR
[2018-11-29 06:01] VITALS: BP 96/58
--- NOTE | 2018-11-29 07:45 | NUR ---
Opening Shift Note Assumed care of patient, awake and alert. Patient stated " I am having right and left arm pain radiating to my chest, I also had a norco last night and I threw it up it is all right there. It did not help my pain". No SOB or distress noted. offered Nitroglycerin per chest pain protocol, patient refused VS WNL. Initiated EKG. Called Dr Travis Cortez left a message with company secretary, states "will give him the message". awaiting call back, will continue to monitor Q1 hour. Pt instructed to call for assistance PRN. Call light within reach, instructed how to call for assistance.
[2018-11-29] MEDS: Ensure Enlive Chocolate 8oz Bottle PO SCH ×3 (08:13→18:00)
--- NOTE | 2018-11-29 08:15 | NUR ---
AT STATION MD DOCKERY AT STATION. UPDATED MD ON PATIENTS STATUS. EKG STRIP PROVIDED FOR INTERPRETATION. NO NEW ORDERS OBTAINED FROM EKG RESULTS. INFORMED OF PATIENTS COMPLAINTS OF HARD STOOL. STATES " OKAY I WILL PUT ORDERS IN"
--- NOTE | 2018-11-29 08:30 | NUR ---
AT BEDSIDE MD DOCKERY AT BEDSIDE
[2018-11-29 09:00] VITALS: BP 95/70
[2018-11-29] MEDS: FLUTICASONE PROP NASAL SPR 0.05 % (50MCG) 16GM EACHNOSTRI SCH (10:00)
[2018-11-29] MEDS: SODIUM CHLOR 0.9% PF (SALINE LOCK) 10ML VIAL/SYR IV SCH ×2 (10:00→22:18)
[2018-11-29] MEDS: AMIODARONE HCL 200 MG TAB PO SCH ×2 (10:31→22:17)
[2018-11-29] MEDS: CARVEDILOL 3.125 MG TAB PO SCH (10:32)
[2018-11-29] MEDS: MAGNESIUM OXIDE 400 MG TAB PO SCH ×2 (10:32→22:17)
[2018-11-29] MEDS: LISINOPRIL 5 MG TAB PO SCH (10:33)
[2018-11-29] MEDS: DOBUTamine 1000MCG/ML 250 ML IV SCH ×2 (10:35→20:55)
--- NOTE | 2018-11-29 12:15 | NUR ---
WOUND CARE NOTE: IN TO SEE PATIENT AT THIS TIME FOR SKIN INTEGRITY. PATIENT HAS CURRENT JAMES SCORE OF 17. PATIENT IS ABLE TO SIT ON SIDE OF BED, SELF TURN/REPOSITION SELF. HE CONTINUES TO HAVE MULTIPLE BLISTERS TO BLE, MOST ARE CLOSED AND RESOLVING.LEFT HEEL BLISTER HAS OPENED TO PARTIAL THICKNESS. CLEANSED, DRESSED PER MD ORDER, PHOTOGRAPHED FOR REFERENCE. SACRUM IS RED WITH MASD. HE HAS DEVELOPED A 1 X 0.5 PARTIAL THICKNESS FISSURE TO INTRAGLUTEAL FOLD. APPLIED ZGUARD, OPTIFOAM GENTLE SACRAL DRESSING. WOUND PHOTOGRAPHED FOR REFERENCE. PATIENT EDUCATED IN WOUND CARE/PRESSURE REDISTRIBUTION. PATIENT VERBALIZED UNDERSTANDING. RECOMMEND: BID/APPLICATION WITH ZGUARD, OPTIFOAM GENTLE SACRAL DRESSING, CONTINUATION WITH ALL OTHER WOUND CARE ORDERS PREVIOUSLY PRESCRIBED BY MD. WOUND CARE TEAM WILL CONTINUE TO MONITOR. Addendum: 11/29/18 at 1914 by Gabriela Villalba RN Amended: Links added.
[2018-11-29 13:00] VITALS: BP 88/62
[2018-11-29] MEDS: LACTULOSE 20Gm/30ML SOLN PO SCH ×2 (16:19→18:00)
--- NOTE | 2018-11-29 16:32 | NUR ---
PICC Line Dressing Changes PICC line dressing change done with a sterile technique. Cleansed with ChloraPrep scrub. Stat lock, and bio-patch as available. Occlusive dressing applied. Pt tolerated procedure well. arm circumference 32.
[2018-11-29 17:45] VITALS: BP 90/64
[2018-11-29 21:42] VITALS: BP 88/58
--- NOTE | 2018-11-29 22:00 | NUR ---
LASIX HELD DUE TO LOW BLOOD PRESSURE OF 83/55. PATIENT CONTINUES ON DOBUTAMINE DRIPS. WILL MONITOR
[2018-11-30] MEDS: LACTULOSE 20Gm/30ML SOLN PO SCH ×6 (02:09→17:06)
[2018-11-30] MEDS: HYDROcodone-ACET 10/325MG TAB PO PRN ×3 (02:10→14:40)
[2018-11-30] MEDS: guaiFENesin-DM 100/10mg/5ml SYR PO PRN (02:10)
[2018-11-30] MEDS: DOBUTamine 1000MCG/ML 250 ML IV SCH ×2 (06:10→19:00)
[2018-11-30 06:11] VITALS: BP 91/63
[2018-11-30] MEDS: SPIRONOLACTONE 25 MG TAB PO SCH ×2 (06:12→17:06)
[2018-11-30] MEDS: FUROSEMIDE 40 MG/4 ML VIAL IV SCH ×3 (06:12→22:37)
[2018-11-30 06:48] LABS: BUN/Creatinine Ratio 26.8; Calcium 8.2 mg/dL (8.5-10.1); Magnesium 2.4 mg/dL (1.6-2.6); Potassium 4.3 mmol/L (3.5-5.1)
[2018-11-30] MEDS: Ensure Enlive Chocolate 8oz Bottle PO SCH ×3 (08:04→17:06)
[2018-11-30 09:00] VITALS: BP 95/51
[2018-11-30] MEDS: CARVEDILOL 3.125 MG TAB PO SCH (09:29)
[2018-11-30] MEDS: AMIODARONE HCL 200 MG TAB PO SCH ×2 (09:30→22:38)
[2018-11-30] MEDS: MAGNESIUM OXIDE 400 MG TAB PO SCH ×2 (09:30→22:38)
[2018-11-30] MEDS: SODIUM CHLOR 0.9% PF (SALINE LOCK) 10ML VIAL/SYR IV SCH ×2 (09:34→22:37)
[2018-11-30] MEDS: FLUTICASONE PROP NASAL SPR 0.05 % (50MCG) 16GM EACHNOSTRI SCH (09:34)
[2018-11-30] MEDS: LISINOPRIL 5 MG TAB PO SCH (09:35)
--- NOTE | 2018-11-30 10:40 | NUR ---
Nutrition Follow-up Notes Wt. 92.4 kg Pt. sleeping with no family but guards by bedside. pt with no distress noted per nursing. pt is currently on cardiac diet with ensure Enlive 1 carton tid with adequate PO of 75% x 5 per RN doc Est. Needs (based on previous assessment): Recalculate PRN for changes in estimated needs: Calories/Kcals/Kg 25-30/kg IBW 81kg Kcals Calculated: 2430. Proteing/K.8-1.0. Protein Calculated 81 g Labs: CA 8.2 L rest labs wnl Skin: Sheldon 18, mod risk skin pt with open blister and wounds per RN doc. refer to WC notes for details GI: BM x 1 today PES: Altered nutrition related lab values r/t current chronic medical condition AEB elev RFT, hyperbil, mod hypoalb (ongoing) Plan of care: Monitor PO intake/tolerance, labs, skin integrity, follow up 3-5 days Recommendations: 1) Continue current regular diet and Ensure Enlive TID as ordered and as tolerated. 2) Continue POC as ordered
[2018-11-30 13:00] VITALS: BP 89/62
[2018-11-30 17:00] VITALS: BP 110/78
--- NOTE | 2018-11-30 19:30 | NUR ---
PATIENT MOVED TO 40B ASSISTED AND ORIENTED PATIENT TO MOVE TO 40B DUE TO ANTS IN ROOM. GUARDS AT BEDSIDE. CLEANSED AND DISINFECTED URINALS AND COMMODE.
[2018-11-30 22:00] VITALS: BP 113/68
[2018-12-01] MEDS: DOBUTamine 1000MCG/ML 250 ML IV SCH ×2 (04:29→14:00)
[2018-12-01 04:56] VITALS: BP 101/72
[2018-12-01] MEDS: guaiFENesin-DM 100/10mg/5ml SYR PO PRN (05:13)
--- NOTE | 2018-12-01 05:28 | NUR ---
ROUNDS PATIENT IS ALERT AND AWAKE, NO DISTRESS NOTED SATURATING AT 94% ON ROOM AIR.
[2018-12-01] MEDS: LACTULOSE 20Gm/30ML SOLN PO SCH ×4 (06:00→17:54)
[2018-12-01] MEDS: FUROSEMIDE 40 MG/4 ML VIAL IV SCH ×3 (06:33→21:54)
[2018-12-01] MEDS: SPIRONOLACTONE 25 MG TAB PO SCH ×2 (06:34→17:55)
--- NOTE | 2018-12-01 07:30 | NUR ---
Opening Shift Note RECEIVED REPORT FROM NOC RN. Assumed care of patient, awake and alert. No S/S of distress/SOB or pain. BED IN LOWEST, LOCKED POSITION WITH SIDERAILS UP x2 AND GUARDS AT BEDSIDE. Instructed on POC and to call for assist PRN, will continue to monitor for changes Q1hr and PRN.
[2018-12-01] MEDS: Ensure Enlive Chocolate 8oz Bottle PO SCH ×3 (08:09→18:20)
[2018-12-01 09:00] VITALS: BP 110/70
[2018-12-01] MEDS: FLUTICASONE PROP NASAL SPR 0.05 % (50MCG) 16GM EACHNOSTRI SCH (10:00)
[2018-12-01] MEDS: MAGNESIUM OXIDE 400 MG TAB PO SCH ×2 (10:12→21:54)
[2018-12-01] MEDS: AMIODARONE HCL 200 MG TAB PO SCH ×2 (10:13→21:54)
[2018-12-01] MEDS: LISINOPRIL 5 MG TAB PO SCH (10:13)
[2018-12-01] MEDS: CARVEDILOL 3.125 MG TAB PO SCH (10:14)
[2018-12-01] MEDS: SODIUM CHLOR 0.9% PF (SALINE LOCK) 10ML VIAL/SYR IV SCH ×2 (10:16→21:54)
[2018-12-01 13:00] VITALS: BP 99/68
[2018-12-01] MEDS: HYDROcodone-ACET 10/325MG TAB PO PRN (14:49)
[2018-12-01 17:00] VITALS: BP 95/64
--- NOTE | 2018-12-01 19:45 | NUR ---
Opening Shift Note: A&Ox4, resting in bed. [employer] inmate with 3 guards at bedside. Shackles present on left wrist and bilateral ankles. Room air, pain level 0/10, and at baseline patient states he uses a walker; currently SBA to BSC. PICC in right upper extremity double lumen running dobutamine at 27.81 ml/hr per order; PICC inserted on 11/15/18. Bed locked in lowest position, side rails up x2, and call light within reach. Skin: multiple scars from previous wounds; BLE blisters; left heel partial thickness wound; intragluteal fissure on sacral area. POC discussed and questions answered. Will continue to round and reposition prn.
[2018-12-01 22:00] VITALS: BP 102/70
[2018-12-02] MEDS: LACTULOSE 20Gm/30ML SOLN PO SCH ×4 (00:13→17:15)
[2018-12-02] MEDS: DOBUTamine 1000MCG/ML 250 ML IV SCH ×3 (00:13→19:08)
[2018-12-02] MEDS: HYDROcodone-ACET 10/325MG TAB PO PRN ×2 (00:14→15:28)
[2018-12-02] MEDS: guaiFENesin-DM 100/10mg/5ml SYR PO PRN (00:14)
[2018-12-02 05:00] VITALS: BP 93/62
[2018-12-02] MEDS: SPIRONOLACTONE 25 MG TAB PO SCH ×2 (05:45→17:15)
[2018-12-02] MEDS: FUROSEMIDE 40 MG/4 ML VIAL IV SCH ×3 (05:45→21:54)
--- NOTE | 2018-12-02 05:46 | NUR ---
0600 lasix and aldactone held related to low blood pressure of 93/62.
--- NOTE | 2018-12-02 05:58 | NUR ---
New optifoam applied to sacral area with zguard per order. BLE dressing CDI.
[2018-12-02 09:00] VITALS: BP 93/71
[2018-12-02] MEDS: Ensure Enlive Chocolate 8oz Bottle PO SCH ×3 (09:03→19:08)
[2018-12-02] MEDS: LISINOPRIL 5 MG TAB PO SCH (10:00)
[2018-12-02] MEDS: FLUTICASONE PROP NASAL SPR 0.05 % (50MCG) 16GM EACHNOSTRI SCH (11:21)
[2018-12-02] MEDS: MAGNESIUM OXIDE 400 MG TAB PO SCH ×2 (11:22→21:54)
[2018-12-02] MEDS: CARVEDILOL 3.125 MG TAB PO SCH (11:22)
[2018-12-02] MEDS: AMIODARONE HCL 200 MG TAB PO SCH ×2 (11:22→21:54)
[2018-12-02] MEDS: SODIUM CHLOR 0.9% PF (SALINE LOCK) 10ML VIAL/SYR IV SCH ×2 (11:23→21:54)
[2018-12-02 13:00] VITALS: BP 99/63
[2018-12-02 17:00] VITALS: BP 89/60
--- NOTE | 2018-12-02 20:00 | NUR ---
OPENING NOTE RECEIVED REPORT FROM DAYSHIFT RN. ASSUMING ROLE OF CARE OF PATIENT AT THIS TIME. PATIENT EDUCATED ON PLAN OF CARE FOR THE NIGHT AND PATIENT VERBALIZED UNDERSTANDING. PATIENT CURRENTLY ON DOBUTAMINE DRIP. PATIENT SHOWING NO SIGN OF DISTRESS, SHORTNESS OF BREATH, AND PATIENT DENIES ANY PAIN AT THIS TIME. BED LOWERED, CALL LIGHT WITHIN REACH, AND PATIENT WILL BE ROUNDED ON EVERY HOUR AND NEEDED.
[2018-12-02 22:19] VITALS: BP 112/73
[2018-12-03] MEDS: guaiFENesin-DM 100/10mg/5ml SYR PO PRN (00:42)
[2018-12-03] MEDS: DOBUTamine 1000MCG/ML 250 ML IV SCH ×2 (03:49→14:44)
--- NOTE | 2018-12-03 04:45 | NUR ---
ATTEMPTED TO CHANGE DRESSING AT THIS TIME. SPOKE TO PATIENT AND EXPLAINED THAT DRESSING NEEDED TO BE CHANGED. PATIENT REQUESTED TO HAVE DRESSING CHANGED LATER. WILL ATTEMPT AT LATER TIME.
[2018-12-03] MEDS: SPIRONOLACTONE 25 MG TAB PO SCH ×2 (05:37→17:45)
[2018-12-03] MEDS: FUROSEMIDE 40 MG/4 ML VIAL IV SCH ×3 (05:37→21:39)
[2018-12-03] MEDS: LACTULOSE 20Gm/30ML SOLN PO SCH ×4 (05:44→17:45)
--- NOTE | 2018-12-03 05:45 | NUR ---
ATTEMPTED A SECOND TIME TO CHANGE PATIENT DRESSING. PER PATIENT, "THEY JUST CHANGED THE DRESSING". EXPLAINED TO PATIENT THAT PER WOUND CARE REQUEST, THE DRESSING SHOULD BE CHANGED TWICE A DAY. PATIENT STATED THAT THEY WOULD LIKE TO BE LEFT ALONE AND HAVE DRESSING CHANGED AT A LATER TIME. WILL INFORM DAY SHIFT RN. DRESSINGS ARE CLEAN DRY AND INTACT
[2018-12-03 05:51] VITALS: BP 99/70
--- NOTE | 2018-12-03 07:20 | NUR ---
Open Shift Note Received report on patient, awake and sitting up in bed. Patient shows no signs of distress at this time. Discussed POC with patient and plans for dressing change, patient verbalized understanding. Bed in lowest locked position, side rails up x2 and call light within reach. Guards present at bedside.
[2018-12-03 09:00] VITALS: BP 103/70
[2018-12-03] MEDS: LISINOPRIL 5 MG TAB PO SCH (10:00)
[2018-12-03] MEDS: FLUTICASONE PROP NASAL SPR 0.05 % (50MCG) 16GM EACHNOSTRI SCH (10:00)
[2018-12-03] MEDS: Ensure Enlive Chocolate 8oz Bottle PO SCH ×3 (10:23→17:45)
[2018-12-03] MEDS: HYDROcodone-ACET 10/325MG TAB PO PRN (10:23)
[2018-12-03] MEDS: CARVEDILOL 3.125 MG TAB PO SCH (10:24)
[2018-12-03] MEDS: SODIUM CHLOR 0.9% PF (SALINE LOCK) 10ML VIAL/SYR IV SCH ×2 (10:24→21:39)
[2018-12-03] MEDS: MAGNESIUM OXIDE 400 MG TAB PO SCH ×2 (10:25→21:39)
[2018-12-03] MEDS: AMIODARONE HCL 200 MG TAB PO SCH ×2 (10:25→21:39)
[2018-12-03 13:00] VITALS: BP 89/58
[2018-12-03 17:00] VITALS: BP 91/56
--- NOTE | 2018-12-03 17:06 | NUR ---
Attempted To Page Dr Prater Attempted to page Dr Prater's paging service but no answer.
--- NOTE | 2018-12-03 17:12 | NUR ---
Paged Dr Travis Cortez Paged Dr Cortez to inform him that patient's pain medication was auto cancelled and asked for reinstatement of orders. Dr Cortez stated that his [place] Q4 can be restarted. Order read back and verified.
--- NOTE | 2018-12-03 17:50 | NUR ---
Patient Found With Feet Dangling Patient found multiple times with feet dangling at bedside. Educated patient importance of patient keeping feet elevated as to decrease edema. Patient verbalized understanding.
--- NOTE | 2018-12-03 19:13 | NUR ---
Closing Note Patient sitting up in bed with feet elevated, shows no signs of distress at this time. Bed in lowest locked position, side rails up x2 and call light within reach. Guards present at bedside.
--- NOTE | 2018-12-03 19:14 | NUR ---
OPENING SHIFT NOTE Received report from day shift RN. Patient is A&O X's 4 with no s/s of distress/SOB. He is sitting at edge of bed at this time. He reports some pain to his lower extremities but states that he wants pain medication later. Educated patient on pain management and POC/ to use call light when in need of assistance. Patient verbalized understanding. Dobutamine is infusing to right upper PICC line as ordered. Bed is in lowest/locked position with side rails up X's 2 and call light is within reach of patient. Guards present at bedside. Will continue care.
--- NOTE | 2018-12-03 21:55 | NUR ---
NURSING NOTE Patient continues to sit at edge of bed with feet dangling. Educated patient that elevating legs will help decrease edema in lower extremities. Recommended to raise the foot of the bed and use pillows that are provided. Patient verbalized understanding.
[2018-12-03 22:00] VITALS: BP 121/82
--- NOTE | 2018-12-03 23:29 | NUR ---
WEIGHT Rechecked the weight for this patient using bed scale. It is 89.5 kg
[2018-12-04] MEDS: HYDROcodone-ACET 10/325MG TAB PO PRN ×2 (00:12→13:20)
[2018-12-04] MEDS: guaiFENesin-DM 100/10mg/5ml SYR PO PRN (00:12)
[2018-12-04] MEDS: DOBUTamine 1000MCG/ML 250 ML IV SCH ×3 (00:48→22:07)
--- NOTE | 2018-12-04 04:38 | NUR ---
PATIENT REFUSED WOUND CARE DRESSING CHANGE Explained to patient that per wound care orders, dressing should be changed twice a day. Patient verbalized understanding, but still refusing to have it done. Dressings are C/D/I. Will attempt again at a later time and inform day shift RN.
[2018-12-04] MEDS: LACTULOSE 20Gm/30ML SOLN PO SCH ×4 (05:56→17:56)
[2018-12-04] MEDS: FUROSEMIDE 40 MG/4 ML VIAL IV SCH ×3 (05:56→21:34)
[2018-12-04] MEDS: SPIRONOLACTONE 25 MG TAB PO SCH ×2 (05:56→17:56)
--- NOTE | 2018-12-04 05:56 | NUR ---
SECOND ATTEMPT AT DRESSING CHANGE Patient refusing dressing change. Will inform day shift RN.
[2018-12-04 06:01] VITALS: BP 121/73
--- NOTE | 2018-12-04 07:25 | NUR ---
Open Shift Note Received report on patient, asleep in bed and awoken upon touch and saying of name. Patient shows no signs of distress at this time. Discussed POC with patient. Bed in lowest locked position, side rails up x2 and call light within reach. Guards present at bedside. Will continue to monitor.
[2018-12-04] MEDS: Ensure Enlive Chocolate 8oz Bottle PO SCH ×3 (08:51→17:56)
[2018-12-04 09:00] VITALS: BP 103/73
[2018-12-04] MEDS: AMIODARONE HCL 200 MG TAB PO SCH ×2 (09:34→21:34)
[2018-12-04] MEDS: MAGNESIUM OXIDE 400 MG TAB PO SCH ×2 (09:34→21:35)
[2018-12-04] MEDS: LISINOPRIL 5 MG TAB PO SCH (09:34)
[2018-12-04] MEDS: CARVEDILOL 3.125 MG TAB PO SCH (09:35)
[2018-12-04] MEDS: SODIUM CHLOR 0.9% PF (SALINE LOCK) 10ML VIAL/SYR IV SCH ×2 (09:35→21:34)
[2018-12-04] MEDS: FLUTICASONE PROP NASAL SPR 0.05 % (50MCG) 16GM EACHNOSTRI SCH (09:37)
--- NOTE | 2018-12-04 12:10 | NUR ---
Patient Refused Sacral Dressing Change Patient refused sacral dressing change. Educated importance of assessing and applying z-guard as needed. Patient shook head yes.
[2018-12-04 12:56] VITALS: BP 104/65
--- NOTE | 2018-12-04 15:30 | NUR ---
Wound Dressing Change Performed wound care on lower extremities bilaterally per orders. Patient tolerated well.
[2018-12-04 16:58] VITALS: BP 101/66
--- NOTE | 2018-12-04 18:47 | NUR ---
Closing Note Patient sitting up in bed, shows no signs of distress at this time. Bed in lowest locked position, side rails up x2 and call light within reach. Legs propped up with pillows. Guards present at bedside.
--- NOTE | 2018-12-04 19:05 | NUR ---
OPENING NOTE Received report from day shift RN. Patient is A&O X's 4 with no s/s of distress and reports no pain. Educated patient on POC and to use call light when in need of assistance. Patient verbalized understanding. Bed is in lowest/locked position with side rails up X's 2 and call light is within reach of patient. Guards are at bedside. Will continue care.
--- NOTE | 2018-12-04 21:35 | NUR ---
SACRAL DRESSING CHANGE Per wound care order, sacral fissure cleansed with mild soap and water. Patted dry with gauze and applied Z Guard to sacral area. Optifoam gentle sacral dressing applied.
[2018-12-04 21:51] VITALS: BP 106/69
[2018-12-05] MEDS: guaiFENesin-DM 100/10mg/5ml SYR PO PRN (00:17)
[2018-12-05] MEDS: HYDROcodone-ACET 10/325MG TAB PO PRN (00:17)
[2018-12-05] MEDS: DOBUTamine 1000MCG/ML 250 ML IV SCH ×2 (04:45→14:10)
[2018-12-05 05:22] VITALS: BP 106/68
[2018-12-05] MEDS: FUROSEMIDE 40 MG/4 ML VIAL IV SCH ×3 (05:48→22:09)
[2018-12-05] MEDS: SPIRONOLACTONE 25 MG TAB PO SCH ×2 (05:48→17:29)
[2018-12-05] MEDS: LACTULOSE 20Gm/30ML SOLN PO SCH ×5 (05:48→22:59)
[2018-12-05] MEDS: Ensure Enlive Chocolate 8oz Bottle PO SCH ×3 (08:00→18:00)
[2018-12-05 09:00] VITALS: BP 99/68
[2018-12-05] MEDS: AMIODARONE HCL 200 MG TAB PO SCH ×2 (09:44→22:09)
[2018-12-05] MEDS: MAGNESIUM OXIDE 400 MG TAB PO SCH ×2 (09:45→22:09)
[2018-12-05] MEDS: CARVEDILOL 3.125 MG TAB PO SCH (09:45)
[2018-12-05] MEDS: FLUTICASONE PROP NASAL SPR 0.05 % (50MCG) 16GM EACHNOSTRI SCH (09:46)
[2018-12-05] MEDS: LISINOPRIL 5 MG TAB PO SCH (10:00)
--- NOTE | 2018-12-05 10:00 | NUR ---
Patient refused wound care on sacrum. Patient educated on risk and benefits, patient continued to refuse dressing change.
[2018-12-05] MEDS: SODIUM CHLOR 0.9% PF (SALINE LOCK) 10ML VIAL/SYR IV SCH ×2 (10:07→22:09)
[2018-12-05 13:00] VITALS: BP 103/72
[2018-12-05 14:43] LABS: Eosinophils # (auto) 0.2 uL; Hemoglobin 15.2 g/dL (13.5-17.5); White Blood Cell 6.1 10^3/uL (4.4-10.8)
[2018-12-05 14:54] LABS: Basophils # (auto) 0.1 uL; Basophils % (auto) 1.5 % (0.0-2.0); Eosinophils % (auto) 3.4 % (0.0-7.0); Lymphocytes # (auto) 0.9 uL; Lymphocytes % (auto) 15.1 % (10.0-50.0); Mean Corpuscular Hemoglobin 30.5 pg (28.0-32.0); Mean Corpuscular Volume 92.4 fL (80.0-100.0); Monocytes # (auto) 0.5 uL; Monocytes % (auto) 7.5 % (0.0-12.0); Neutrophils # (auto) 4.4 uL; Neutrophils % (auto) 72.5 % (37.0-80.0); Nucleated Red Blood Cells % 0.1 %; Platelet Count (auto) 156 10^3/uL (140-450); Red Blood Cells 4.98 10^6/uL (4.5-5.90)
[2018-12-05 14:56] LABS: BUN/Creatinine Ratio 16.9; Calcium 8.9 mg/dL (8.5-10.1)
[2018-12-05 15:13] LABS: Red Cell Distribution Width 20.2 % (11.8-14.3)
[2018-12-05 17:00] VITALS: BP 100/74
--- NOTE | 2018-12-05 19:22 | NUR ---
Change of shift given to nightman RN. No distress noted.
[2018-12-05 21:41] VITALS: BP 108/68
[2018-12-06] MEDS: HYDROcodone-ACET 10/325MG TAB PO PRN ×2 (00:35→13:22)
[2018-12-06] MEDS: guaiFENesin-DM 100/10mg/5ml SYR PO PRN (00:35)
[2018-12-06] MEDS: LACTULOSE 20Gm/30ML SOLN PO SCH ×4 (04:53→23:51)
[2018-12-06] MEDS: FUROSEMIDE 40 MG/4 ML VIAL IV SCH ×3 (04:53→22:17)
[2018-12-06] MEDS: SPIRONOLACTONE 25 MG TAB PO SCH ×2 (04:53→17:54)
[2018-12-06] MEDS: ONDANSETRON HCL 4 MG/2 ML VIAL IV PRN (04:53)
[2018-12-06 05:01] VITALS: BP 113/74
[2018-12-06] MEDS: Ensure Enlive Chocolate 8oz Bottle PO SCH ×3 (08:00→18:09)
[2018-12-06 09:00] VITALS: BP 104/73
[2018-12-06] MEDS: LISINOPRIL 5 MG TAB PO SCH (10:00)
[2018-12-06] MEDS: FLUTICASONE PROP NASAL SPR 0.05 % (50MCG) 16GM EACHNOSTRI SCH (10:00)
[2018-12-06] MEDS: CARVEDILOL 3.125 MG TAB PO SCH (10:07)
[2018-12-06] MEDS: MAGNESIUM OXIDE 400 MG TAB PO SCH ×2 (10:08→22:18)
[2018-12-06] MEDS: SODIUM CHLOR 0.9% PF (SALINE LOCK) 10ML VIAL/SYR IV SCH ×2 (10:17→22:17)
[2018-12-06] MEDS: AMIODARONE HCL 200 MG TAB PO SCH ×2 (10:17→22:17)
--- NOTE | 2018-12-06 11:48 | NUR ---
Spoke with Doctor Moi. Patient stated having SOB, weakness and felt lightheaded, blood pressure was 99/60. MD ordered chest Xray stat. See EMAR for additional orders. Will continue to monitor.
[2018-12-06] MEDS ORDERED: POTASSIUM CHL 10 Meq TABLET PO ONE (12:00)
[2018-12-06] MEDS ORDERED: FUROSEMIDE 20 MG/2 ML VIAL IV ONE (12:00)
--- NOTE | 2018-12-06 12:54 | NUR ---
Patient complains of sharp chest pain. Dr. Prater notified. Per , perform EKG. EKG obtained and ready by Dr. Prater. No new orders received.
[2018-12-06 13:00] VITALS: BP 99/60
--- NOTE | 2018-12-06 15:15 | NUR ---
WOUND CARE NOTE: Weekly reevaluation by wound care team. Patient has been on skin integrity rounding due to low Sheldon and wounds noted to bilateral lower extremities and sacrum. Patient seen with correctional officers at bedside. Photographs taken of bilateral feet wounds and sacrum. Patient is alert and denies pain. Last Sheldon score is 17. Sacrum appears to be healing. Bilateral feet wounds redressed as ordered. RECOMMENDATIONS: Nursing to continue with the previous wound/skin care orders; wound care team to continue to follow.
[2018-12-06 17:00] VITALS: BP 100/70
--- NOTE | 2018-12-06 19:10 | NUR ---
Change of shift given to overnight stocker RN. No distress noted. Patient stated he does not want his dressings changed until overnight stocker. PICC line dressing endorsed to overnight stocker RN.
[2018-12-06 22:00] VITALS: BP 103/70
[2018-12-07 05:00] VITALS: BP 112/76
[2018-12-07] MEDS: FUROSEMIDE 40 MG/4 ML VIAL IV SCH ×3 (05:42→21:23)
[2018-12-07] MEDS: LACTULOSE 20Gm/30ML SOLN PO SCH ×3 (05:42→18:03)
[2018-12-07] MEDS: SPIRONOLACTONE 25 MG TAB PO SCH ×2 (05:43→17:59)
--- NOTE | 2018-12-07 06:40 | NUR ---
PICC Dressing Changed
--- NOTE | 2018-12-07 07:30 | NUR ---
Open Shift Note Received report on patient, asleep in bed but awoken to name. Patient able to open eyes and answers questions but is drowsy. Discussed POC with patient. Bed in lowest locked position, side rails up x2 and call light within reach. Guards present at bedside. Will continue to monitor.
[2018-12-07] MEDS: Ensure Enlive Chocolate 8oz Bottle PO SCH ×3 (08:00→18:04)
[2018-12-07 08:56] VITALS: BP 107/62
[2018-12-07] MEDS: LISINOPRIL 5 MG TAB PO SCH (10:00)
[2018-12-07] MEDS: FLUTICASONE PROP NASAL SPR 0.05 % (50MCG) 16GM EACHNOSTRI SCH (10:00)
[2018-12-07] MEDS: CARVEDILOL 3.125 MG TAB PO SCH (10:51)
[2018-12-07] MEDS: MAGNESIUM OXIDE 400 MG TAB PO SCH ×2 (10:51→21:22)
[2018-12-07] MEDS: AMIODARONE HCL 200 MG TAB PO SCH ×2 (10:51→21:22)
[2018-12-07] MEDS: SODIUM CHLOR 0.9% PF (SALINE LOCK) 10ML VIAL/SYR IV SCH ×2 (10:53→21:22)
--- NOTE | 2018-12-07 11:27 | NUR ---
Nutrition Follow-up Notes Wt. 86.3 kg Pt. sleeping with no family but guards by bedside. pt with no distress noted per nursing. pt is currently on cardiac diet with ensure Enlive 1 carton tid with fair PO of avg 65% x 2 days per RN doc Est. Needs (based on previous assessment): Recalculate PRN for changes in estimated needs: Calories/Kcals/Kg 25-30/kg IBW 81kg Kcals Calculated: 2430. Proteing/K.8-1.0. Protein Calculated 81 g Labs: No new labs today 11/04: BUN 22 H Skin: Sheldon 15, mod risk skin pt with open blister and wounds per RN doc. refer to WC notes for details GI: BM x 1 yesterday PES: Altered nutrition related lab values r/t current chronic medical condition AEB elev RFT, hyperbil, mod hypoalb (ongoing) Plan of care: Monitor PO intake/tolerance, labs, skin integrity, follow up 3-5 days Recommendations: 1) Continue current regular diet and Ensure Enlive TID as ordered and as tolerated. 2) Continue POC as ordered
[2018-12-07 12:56] VITALS: BP 102/63
[2018-12-07 17:00] VITALS: BP 102/60
--- NOTE | 2018-12-07 18:00 | NUR ---
Dressing Change Changed dressing on bilateral lower extremities per orders. Patient tolerated well.
--- NOTE | 2018-12-07 18:52 | NUR ---
Closing Note Patient sitting up in bed, asleep. Patient shows no signs of distress at this time. Bed in lowest locked position, side rails up x2 and call light within reach. Guards present at bedside.
[2018-12-07 21:25] VITALS: BP 102/62
--- NOTE | 2018-12-07 22:44 | NUR ---
Spoke to MD Cortez and notified him of patient having desaturation in 80's without oxygen, nasal canula put on and went to 90's in oxygen saturation. MD Cortez provided new order of ABG, continuous pulse ox, Oxymizer. Addendum: 12/07/18 at 2248 by Jeovany Burnett RN Will carry out. notified rt of abg's and darin rt will come shortly. oxymizer on.
--- NOTE | 2018-12-07 22:53 | NUR ---
rt at bedside
--- NOTE | 2018-12-07 23:09 | NUR ---
CALLED TO PT ROOM FOR DESATURATION. POX READING APPEARS INCONSISTENTLY. ABG ORDERED WITH CONTINUOUS POX MONITOR PER DR. VOSS. PT PLACED ON CONTINUOUS POX MONITOR AND ABG DRAWN. ABG RESULTS INDICATED HIGH PO2. OXYMIZER REDUCED FROM 6L TO 2L. RENATO SMITH AWARE.
[2018-12-07 23:12] VITALS: BP 102/62
--- NOTE | 2018-12-07 23:16 | NUR ---
Spoke to MD Cortez and notified him of ABG results, clinical picture, vitals, o2 is 98 currently on continuous pulse ox, and sleeping at this time. new order given to do cbc/bmp for morning labs and repeat ABG at 0800 am. Addendum: 12/07/18 at 2345 by Jeovany Burnett RN clinical picture: patient stated "i feel better", patient is lethargic but able to respond spontaneously to name.
--- NOTE | 2018-12-07 23:59 | NUR ---
patient wants oxymizer off. offered nasal canula. educated patient on the importance of having oxygen on via oxymizer/nasal canula. patient acknowledge education given and still refused. oxygen saturation is 99% currently on continuous pulse on room air. will monitor patient and oxygen saturation more frequent. Addendum: 12/08/18 at 0006 by Jeovany Burnett RN Venu is aox4. verbally denies sob, distress, or pain at this time.
--- NOTE | 2018-12-08 00:58 | NUR ---
patient oxygen saturation is 100 on room air reading from the continuous pulse ox machine. patient is sleeping with no signs of distress, sob, or pain at this time.
--- NOTE | 2018-12-08 03:04 | NUR ---
Patient got up to commode and had a BM. Patient tolerated activity well. Oxygen saturation on commode 100% on room air. Patient placed back in bed and 100 % on room via continuous pulse ox machine.
[2018-12-08] MEDS: FUROSEMIDE 40 MG/4 ML VIAL IV SCH ×2 (05:22→15:07)
[2018-12-08] MEDS: LACTULOSE 20Gm/30ML SOLN PO SCH ×4 (05:23→18:00)
[2018-12-08] MEDS: SPIRONOLACTONE 25 MG TAB PO SCH ×2 (05:23→18:00)
[2018-12-08 05:56] VITALS: BP 100/69
--- NOTE | 2018-12-08 07:03 | NUR ---
patient oxygen saturation is 100 on room air reading from the continuous pulse ox machine. patient is resting with no signs of distress, sob, or pain at this time.
--- NOTE | 2018-12-08 07:14 | NUR ---
provided report to day rn. notified rn of patient desaturation in oxygen, 3 bm's with mix urine in commode, and patient is currently resting in bed with no signs of distress at this time.
--- NOTE | 2018-12-08 07:20 | NUR ---
Open Shift Note Received report on patient, asleep in bed but awoken to name. Patient is drowsy but able to answer questions. Patient states pain 5/10 but refuses PRN pain medication at this time. Educated patient importance of keeping head of bed elevated to improve breathing. Patient's continuos pulse ox 100% on room air. Bed in lowest locked position, side rails up x 2 and call light within reach. Guards present at bedside. Will continue to monitor.
[2018-12-08] MEDS: Ensure Enlive Chocolate 8oz Bottle PO SCH ×3 (08:00→18:00)
--- NOTE | 2018-12-08 08:38 | NUR ---
Respiratory note: HAD DR. VOSS PAGED AND LEFT URGENT MESSAGE IN REGARDS TO CRITICAL ABG LAB VALUE. WAITING FOR DR. VOSS TO CALL BACK.
--- NOTE | 2018-12-08 08:45 | NUR ---
Respiratory note: SPOKE TO RENATO Bermudez IN REGARDS TO ABG RESULTS, SHE IS AWARE THAT I HAD DR. VOSS PAGED DUE TO CRITICAL ABG RESULTS. WILL CONTINUE TO MONITOR PATIENT.
[2018-12-08 08:48] VITALS: BP 108/69
--- NOTE | 2018-12-08 08:55 | NUR ---
Patient On Commode-Took Off Continuous Pulse OX Guards pressed call light to inform that patient took of his continuous pulse ox in order to get to bedside commode. Educated patient importance of leaving on the continuous pulse oximeter on and that it can reach while on the commode, patient refused to have it put back on at this time. Will continue to monitor, and replace pulse ox once patient returns to bed.
--- NOTE | 2018-12-08 09:14 | NUR ---
Respiratory note: HAD DR. VOSS PAGED AGAIN DUE TO CRITICAL ABG VALUE. WILL CONTINUE TO TRY TO REACH DR. VOSS.
--- NOTE | 2018-12-08 09:20 | NUR ---
Respiratory note: CALLED HOSPITALIST DR. YAÑEZ TO HAVE ABG RESULTS VERIFIED, BUT SHE WOULD NOT ACCEPT RESULTS DUE TO PATIENT NOT BEING HER OWN. SHE STATED TO CALL THE PATIENT'S ATTENDING DR. MAHONEY.
--- NOTE | 2018-12-08 09:24 | NUR ---
Respiratory note: CALLED DR. DOCKERY'S OFFICE AND DR. DOCKERY WAS UNAVAILABLE TO TALK, LEFT MESSAGE TO HAVE CALL RT BACK IN REGARDS TO URGENT CRITICAL ABG VALUES.
--- NOTE | 2018-12-08 09:45 | NUR ---
Respiratory note: DR. JACQUES RECEIVED CRITICAL ABG RESULTS, WILL NOTIFY RENATO Bermudez TO CALL DR. DOCKERY AND/OR DR. VOSS TO RECEIVE FURTHER ORDERS/INTERVENTIONS.
[2018-12-08 09:54] LABS: Basophils # (auto) 0 uL; Basophils % (auto) 0.2 % (0.0-2.0); Eosinophils # (auto) 0 uL; Eosinophils % (auto) 0.1 % (0.0-7.0); Hematocrit 43.7 % (41.0-53.0); Hemoglobin 14.3 g/dL (13.5-17.5); Lymphocytes # (auto) 1.3 uL; Lymphocytes % (auto) 11.7 % (10.0-50.0); Mean Corpuscular Hemoglobin 30.8 pg (28.0-32.0); Mean Corpuscular Hgb Conc. 32.8 g/dL (32.0-36.0); Mean Corpuscular Volume 93.8 fL (80.0-100.0); Monocytes # (auto) 0.7 uL; Monocytes % (auto) 6.4 % (0.0-12.0); Neutrophils % (auto) 81.6 % (37.0-80.0); Nucleated Red Blood Cells % 0.3 %; Platelet Count (auto) 128 10^3/uL (140-450); Red Blood Cells 4.65 10^6/uL (4.5-5.90); White Blood Cell 11.1 10^3/uL (4.4-10.8)
[2018-12-08] MEDS: MAGNESIUM OXIDE 400 MG TAB PO SCH (10:00)
[2018-12-08] MEDS: FLUTICASONE PROP NASAL SPR 0.05 % (50MCG) 16GM EACHNOSTRI SCH (10:00)
--- NOTE | 2018-12-08 10:00 | NUR ---
Respiratory note: RENATO Bermudez IS AWARE THAT DR. VOSS DID NOT CALL BACK IN REGARDS TO CRITICAL ABG VALUES, RENATO MCCORMICK STATED SHE WILL TRY GETTING A HOLD OF THE DOCTOR TO RECEIVE FURTHER INTERVENTIONS.
[2018-12-08 10:04] LABS: Red Cell Distribution Width 21.3 % (11.8-14.3)
[2018-12-08 10:11] LABS: Calcium 9.3 mg/dL (8.5-10.1)
[2018-12-08 10:14] LABS: BUN/Creatinine Ratio 19.4
[2018-12-08 10:19] LABS: Potassium 6.2 mmol/L (3.5-5.1)
[2018-12-08] MEDS ORDERED: SODIUM BICARBONATE 8.4 % INJ 50ML VIAL IV ONE ×2 (10:30→15:45)
[2018-12-08] MEDS ORDERED: InsuLIN REG 1unit/0.01ml Soln (100units/ml) IV ONE ×2 (10:30→15:45)
[2018-12-08] MEDS ORDERED: DEXTROSE (50%) 50ML SYRG IV ONE ×2 (10:30→15:45)
[2018-12-08] MEDS ORDERED: SODIUM ZIRCONIUM CYCL 10 GM PAK PO ONE ×2 (10:30→16:00)
[2018-12-08] MEDS ORDERED: TPN PER PHARMACY 0 ML IV SCH (10:30)
[2018-12-08] MEDS ORDERED: CALCIUM GLUC 4.65meq/50ml D5AE 50 ML IV ONE ×2 (10:30→15:45)
[2018-12-08] MEDS: SODIUM CHLOR 0.9% PF (SALINE LOCK) 10ML VIAL/SYR IV SCH ×2 (11:12→22:02)
[2018-12-08 12:10] LABS: Albumin 3.2 g/dL (3.4-5.0)
[2018-12-08 12:34] LABS: Bilirubin, Direct 3.9 mg/dL (0-0.2); Bilirubin, Total 5.1 mg/dL (0.2-1.0); Phosphorus 8.8 mg/dL (2.5-4.90); Total Protein 7.4 g/dL (6.4-8.2)
[2018-12-08 13:00] VITALS: BP 133/81
[2018-12-08] MEDS: AMIODARONE HCL 200 MG TAB PO SCH ×3 (13:01→22:01)
[2018-12-08] MEDS: CARVEDILOL 3.125 MG TAB PO SCH (13:02)
[2018-12-08 14:34] LABS: INR 3.2 (0.9-1.15)
[2018-12-08 15:03] LABS: BUN/Creatinine Ratio 21.2
[2018-12-08 15:34] LABS: Potassium 5.9 mmol/L (3.5-5.1)
[2018-12-08] MEDS: SODIUM BICARBONATE 50ML VIAL 100 ML in D5W/SOD CHL 0.45% 1,000 ML IV SCH (16:28)
--- NOTE | 2018-12-08 16:35 | NUR ---
Patient Refused Lokelma Patient refused Lokelma. Patient states "I don't want to". When educated patient importance of taking medication and lowering his critical lab value, patient states "You guys are bullying me to take medication". Educated patient his right to refuse. Will continue to monitor.
[2018-12-08 17:07] VITALS: BP 111/62
[2018-12-08 18:00] VITALS: BP 108/51
--- NOTE | 2018-12-08 19:24 | NUR ---
Respiratory note: PULSE OX CHECK. SPO2 97% ON 1L, HR 83, RR 18, BS CLEAR/DIMINISHED. PT PRESENTING NO RESPIRATORY DISTRESS AT THIS TIME. WILL CONTINUE TO MONITOR.
--- NOTE | 2018-12-08 19:28 | NUR ---
Closing Note Endorsed care to [facility] nurse Kaley. Patient asleep, refused dinner tray. Bed in lowest locked position, side rails up x2 and call light within reach. Guards present at bedside.
[2018-12-08] MEDS ORDERED: AMINO ACID INFUSION IN D10W 1,000 ML IV ONE (20:00)
[2018-12-08 21:30] LABS: Albumin 2.9 g/dL (3.4-5.0); BUN/Creatinine Ratio 27.8; Calcium 8.7 mg/dL (8.5-10.1); Potassium 4.6 mmol/L (3.5-5.1)
[2018-12-08 21:41] LABS: Bilirubin, Total 4.3 mg/dL (0.2-1.0); Total Protein 6.9 g/dL (6.4-8.2)
[2018-12-09] MEDS ORDERED: DEXTROSE (50%) 50ML SYRG IV SCH
--- NOTE | 2018-12-09 | NUR ---
Patient is rude, refused to be reposition.
[2018-12-09] MEDS: InsuLIN REG 1unit/0.01ml Soln (100units/ml) SC SCH ×5 (00:01→23:47)
[2018-12-09] MEDS: SPIRONOLACTONE 25 MG TAB PO SCH (05:57)
[2018-12-09] MEDS: LACTULOSE 20Gm/30ML SOLN PO SCH ×5 (05:57→23:28)
[2018-12-09] MEDS: ACCU-CHEK COMFORT CURVE STRIP VI SCH ×5 (06:00→23:47)
[2018-12-09 06:28] VITALS: BP 113/69
--- NOTE | 2018-12-09 07:17 | NUR ---
Report given to Eve Kumar,patient is resting no distress.
[2018-12-09] MEDS: Ensure Enlive Chocolate 8oz Bottle PO SCH ×3 (08:00→18:09)
--- NOTE | 2018-12-09 08:00 | NUR ---
PATIENT ROUNDS PATIENT IN BED, NO DISTRESS NOTED, BED IN LOWEST POSITION, SIDE RAIL UP X2 CALL LIGHT WITHIN REACH. WILL CONTINUE TO MONITOR AND INITIATE PLAN OF CARE. STUDENT BEAMER HELPER ESTEFANIA ASSISTING IN PATIENT CARE. GUARDS AT BEDSIDE.
[2018-12-09] MEDS: SODIUM BICARBONATE 50ML VIAL 100 ML in D5W/SOD CHL 0.45% 1,000 ML IV SCH ×2 (08:05→23:36)
[2018-12-09 09:00] VITALS: BP 104/75
[2018-12-09] MEDS: AMIODARONE HCL 200 MG TAB PO SCH ×2 (09:26→21:41)
[2018-12-09] MEDS: CARVEDILOL 3.125 MG TAB PO SCH (10:00)
[2018-12-09] MEDS: FLUTICASONE PROP NASAL SPR 0.05 % (50MCG) 16GM EACHNOSTRI SCH (10:00)
[2018-12-09] MEDS: SODIUM CHLOR 0.9% PF (SALINE LOCK) 10ML VIAL/SYR IV SCH ×2 (10:00→22:56)
--- NOTE | 2018-12-09 10:29 | NUR ---
RT NOTE: WENT TO PTS ROOM TO ASSESS BEDSIDE PULSE OX. VITALS HR- 85, RR 16, SPO2 99% ON RA. PT SLEEPING AT THIS TIME, NO S/S OF SOB. WILL CONTINUE TO MONITOR PT.
[2018-12-09 13:00] VITALS: BP 100/72
[2018-12-09 17:00] VITALS: BP 112/70
[2018-12-09 17:45] LABS: Albumin 2.9 g/dL (3.4-5.0); BUN/Creatinine Ratio 30.6; Calcium 8.2 mg/dL (8.5-10.1); Magnesium 2.9 mg/dL (1.6-2.6); Phosphorus 2.5 mg/dL (2.5-4.90); Pre Albumin 6.8 mg/dL (20.0-40.0); Total Protein 6.9 g/dL (6.4-8.2)
[2018-12-09 17:50] LABS: Bilirubin, Total 4.2 mg/dL (0.2-1.0)
--- NOTE | 2018-12-09 18:05 | NUR ---
POX CHECK DONE AT THIS TIME. PT RESTING WITH NO ACUTE DISTRESS NOTED. HR 81 POX 97 ON ROOM AIR. RR 20
[2018-12-09] MEDS ORDERED: CLINIMIX PER PHARMACY IV NR ×3 (20:00)
[2018-12-09] MEDS: guaiFENesin-DM 100/10mg/5ml SYR PO PRN (21:41)
[2018-12-09 22:00] VITALS: BP 109/75
[2018-12-10 05:00] VITALS: BP_SYST 135; BP_SYST 155; BP_DIAS 55; BP_DIAS 75
[2018-12-10] MEDS: LACTULOSE 20Gm/30ML SOLN PO SCH ×4 (05:34→23:44)
[2018-12-10] MEDS: ACCU-CHEK COMFORT CURVE STRIP VI SCH ×4 (05:34→23:46)
[2018-12-10] MEDS: InsuLIN REG 1unit/0.01ml Soln (100units/ml) SC SCH ×4 (05:35→23:46)
[2018-12-10 06:04] LABS: Potassium 4.1 mmol/L (3.5-5.1)
[2018-12-10 06:16] LABS: Albumin 2.9 g/dL (3.4-5.0); BUN/Creatinine Ratio 33.8; Calcium 8.3 mg/dL (8.5-10.1); Magnesium 2.9 mg/dL (1.6-2.6); Phosphorus 2.4 mg/dL (2.5-4.90); Total Protein 6.9 g/dL (6.4-8.2)
--- NOTE | 2018-12-10 06:57 | NUR ---
Report given to Kayla Prado, patient is resting, no distress.
--- NOTE | 2018-12-10 07:50 | NUR ---
Patient rounds Patient resting in bed, no distress noted, bed in lowest position, side rails up x2, call light within reach. Will continue to monitor and initiate plan of care. Guards at bedside
[2018-12-10] MEDS: Ensure Enlive Chocolate 8oz Bottle PO SCH ×3 (08:00→18:00)
[2018-12-10 09:05] VITALS: BP 93/75
[2018-12-10] MEDS: CARVEDILOL 3.125 MG TAB PO SCH (10:00)
[2018-12-10] MEDS: FLUTICASONE PROP NASAL SPR 0.05 % (50MCG) 16GM EACHNOSTRI SCH (10:00)
[2018-12-10] MEDS: SODIUM CHLOR 0.9% PF (SALINE LOCK) 10ML VIAL/SYR IV SCH ×2 (10:27→22:00)
[2018-12-10] MEDS: AMIODARONE HCL 200 MG TAB PO SCH ×2 (10:28→21:58)
--- NOTE | 2018-12-10 10:32 | NUR ---
BM/MD PAGED CLERICAL COORDINATOR STATED PATIENT HAD BM WITH BLOOD CLOTS IN STOOL. RAGHU VOSS PAGED, WAITING FOR CALL BACK.
--- NOTE | 2018-12-10 10:35 | NUR ---
SPOKE WITH DR Travis VOSS, NEW ORDER FOR CBC AND BMP
--- NOTE | 2018-12-10 10:55 | NUR ---
DR VOSS AT BEDSIDE NEW ORDER FOR GI CONSULT
--- NOTE | 2018-12-10 11:00 | NUR ---
Marina Pt. REFUSED Signed: 12/10/18 at 1104 by Orion Lyles PTT <Co-Signature Required> Co-Signed: 12/10/18 at 1104 by Edu Feliciano PT
--- NOTE | 2018-12-10 11:00 | NUR ---
LAB AT BEDSIDE
--- NOTE | 2018-12-10 11:22 | NUR ---
RT NOTE: WENT TO PTS ROOM TO ASSESS BEDSIDE PULSE OX, HR 89, RR 16, SPO2 100% ON 2L NC. WILL CONTINUE TO MONITOR PT.
[2018-12-10 11:56] VITALS: BP 97/64
--- NOTE | 2018-12-10 12:36 | NUR ---
BM PATIENT HAD BM, NO BLOOD IN STOOL.
[2018-12-10 13:12] LABS: Basophils # (auto) 0 uL; Basophils % (auto) 0.1 % (0.0-2.0); Eosinophils # (auto) 0 uL
[2018-12-10 13:16] LABS: Hematocrit 42.3 % (41.0-53.0); Hemoglobin 14.3 g/dL (13.5-17.5); Lymphocytes % (auto) 10.7 % (10.0-50.0); Mean Corpuscular Hemoglobin 31.3 pg (28.0-32.0); Mean Corpuscular Hgb Conc. 33.8 g/dL (32.0-36.0); Mean Corpuscular Volume 92.7 fL (80.0-100.0); Monocytes # (auto) 0.7 uL; Monocytes % (auto) 7.6 % (0.0-12.0); Neutrophils # (auto) 7.3 uL; Neutrophils % (auto) 81.6 % (37.0-80.0); Nucleated Red Blood Cells % 0.8 %; Platelet Count (auto) 46 10^3/uL (140-450); Red Blood Cells 4.56 10^6/uL (4.5-5.90)
[2018-12-10 13:19] LABS: Red Cell Distribution Width 20.7 % (11.8-14.3)
[2018-12-10 14:08] LABS: BUN/Creatinine Ratio 33.3; Calcium 8.8 mg/dL (8.5-10.1)
[2018-12-10] MEDS: SODIUM BICARBONATE 50ML VIAL 100 ML in D5W/SOD CHL 0.45% 1,000 ML IV SCH (14:54)
[2018-12-10 16:56] VITALS: BP 106/78
--- NOTE | 2018-12-10 19:57 | NUR ---
Opening Note Assumed pt care from day shift nurse. Pt is a/ox4 and is slightly drowsy and sleepy upon initial assessment. Pt is currently laying upright in bed with no complaints. Started TPN via central line. Provided education to pt regarding purpose of treatment; pt verbalized understanding. Discussed POC with pt; pt verbalized understanding. Safety measures maintained with call light within reach, bed in lowest position and side rails up. Will continue to monitor for changes q1hr and prn.
[2018-12-10] MEDS ORDERED: TPN PER PHARMACY IV NR ×7 (20:00)
[2018-12-10 21:28] VITALS: BP 97/64
[2018-12-11] VITALS (7 sets, daily range): BP systolic 89–130; BP diastolic 64–83
[2018-12-11] MEDS: SODIUM BICARBONATE 50ML VIAL 100 ML in D5W/SOD CHL 0.45% 1,000 ML IV SCH (00:24)
[2018-12-11] MEDS: LACTULOSE 20Gm/30ML SOLN PO SCH ×4 (05:32→23:58)
[2018-12-11] MEDS: ACCU-CHEK COMFORT CURVE STRIP VI SCH ×4 (05:55→23:58)
[2018-12-11] MEDS: InsuLIN REG 1unit/0.01ml Soln (100units/ml) SC SCH ×4 (05:58→23:58)
--- NOTE | 2018-12-11 07:34 | NUR ---
Opening Shift Note Assumed care of patient, pt resting in bed. Respiration even and non labored. No S/S of distress or pain. Call light within reach, bed in lowest position and locked. Instructed on POC and to call for assist PRN, will continue to monitor for changes Q1hr and PRN.
[2018-12-11] MEDS: Ensure Enlive Chocolate 8oz Bottle PO SCH ×3 (08:00→18:00)
[2018-12-11] MEDS: FLUTICASONE PROP NASAL SPR 0.05 % (50MCG) 16GM EACHNOSTRI SCH (09:29)
[2018-12-11] MEDS: CARVEDILOL 3.125 MG TAB PO SCH (09:29)
[2018-12-11] MEDS: SODIUM CHLOR 0.9% PF (SALINE LOCK) 10ML VIAL/SYR IV SCH ×2 (09:30→23:58)
--- NOTE | 2018-12-11 10:59 | NUR ---
Nutrition Follow-up Notes Wt. 83.0 kg Pt. sleeping with no family but guards by bedside. pt with no distress noted per nursing. pt is currently on cardiac diet with ensure Enlive 1 carton tid with inadequate PO of < 50% x 5 per RN doc. pt also now on PN support @ 42 ml/hr providing 1030 kcals and 45 gm proteins 850 NCP. pt with inadequate PN support as it meets 42-50% kcals and 55-69% proteins Est. Needs IBW 81 [id number] kcal (25-30 kcal/kgBW), 65-81 gms pro (0.8-1.0 gms/kgBW d/t elev RFT wounds). Will continue to monitor pertinent labs and reassess nutrient need prn. will reassess per dry body wt Labs: BUN 66 H, CREAT 1.98 H, GLU 123 H, Skin: Sheldon 17, mod risk skin pt with open blister and wounds per RN doc. refer to WC notes for details GI: BM x 3 yesterday PES: Altered nutrition related lab values r/t current chronic medical condition AEB elev RFT, hyperbil, mod hypoalb (ongoing) Plan of care: Monitor PO intake/PN tolerance, labs, skin integrity, follow up 2-3 days Recommendations: 1) Advance PN support to meet > 75% if pt continues to have poor PO. 2) continue assistance with meals. 3) Continue POC as ordered
--- NOTE | 2018-12-11 11:32 | NUR ---
PAGED LAB REGARDING LAB DRAW FOR TODAY.
--- NOTE | 2018-12-11 11:35 | NUR ---
RT NOTE: WENT TO PTS ROOM TO ASSESS PT AND BEDSIDE PULSE OX, HR 88, RR 16, SPO2 98% ON 2L NC. PT SLEEPING AT THIS TIME. NO S/S OF SOB. WILL CONTINUE TO MONITOR PT.
--- NOTE | 2018-12-11 12:54 | NUR ---
BLOOD DRAW-HEMOLYZED RECEIVED CALL FROM PHARMACY THAT BLOOD DRAW HAS HEMOLYZED, WITHOUT CURRENT LABS TPN CAN NOT BE MADE AND PPN MAY NEED TO BE SUPPLEMENTED. CALLED AND SPOKE TO LAB. LAB CONFIRMED THAT BLOOD HAS HEMOLYZED BUT LAB WILL STILL BE PROCESSED IN ATTEMPTED TO OBTAIN ANY LAB RESULTS. PER LAB THEY ARE UNABLE TO REDRAW ON PATIENT TODAY.
[2018-12-11 14:10] LABS: Albumin 2.7 g/dL (3.4-5.0); Calcium 8.4 mg/dL (8.5-10.1); Magnesium 2.9 mg/dL (1.6-2.6); Potassium 3.6 mmol/L (3.5-5.1)
--- NOTE | 2018-12-11 14:13 | NUR ---
PT REFUSED PJosefTJosef NOTIFIED RN FELIPE. Addendum: 12/11/18 at 1414 by SHEN RAMON PTT Amended: Links added.
[2018-12-11 14:18] LABS: BUN/Creatinine Ratio 36.9; Bilirubin, Total 6.5 mg/dL (0.2-1.0); Phosphorus 2.2 mg/dL (2.5-4.90); Total Protein 6.9 g/dL (6.4-8.2)
[2018-12-11] MEDS ORDERED: FUROSEMIDE 20 MG/2 ML VIAL IV ONE (15:30)
--- NOTE | 2018-12-11 15:30 | NUR ---
PAGE TO MD VOSS PAGED MD VOSS REGARDING PT STATUS. PT SATURATION LEVEL 84% WITH 12L/MIN SIMPLE MASK. CHANGED TO 15L/MIN ON A NON-REBREATHER AND IS NOW SATURATING 100%. PT IS REFUSING NASAL CANNULA AT THIS TIME. PT IS LAYING IN BED SUPINE POSITION. NEW ORDERS RECEIVED AND WILL IMPLEMENT. WILL CONTINUE TO MONITOR PT.
--- NOTE | 2018-12-11 16:12 | NUR ---
CALL TO RADIOLOGY CALL TO RADIOLOGY REGARDING CHEST X RAY. NO RADIOLOGIST ON SITE TO READ AT THIS TIME. WILL BE READ ELECTRONICALLY
[2018-12-11] MEDS: FUROSEMIDE 20 MG/2 ML VIAL IV SCH (18:30)
--- NOTE | 2018-12-11 19:30 | NUR ---
Opening Shift Note Assumed care of patient, awake and alert x4. Guards noted at the bedside. Patient denies pain or shortness of breath at this time. Patient noted to be on a continuous pulse ox with 97% oxygen saturation on 3L NC. No S/S of distress noted at this time. Patient is laying supine with head of the bed at 45 degrees. Instructed on plan of care and to call for assistance as needed. Bed is locked in lowest position, side rails x 2 are up, and call light is within reach.
[2018-12-11] MEDS ORDERED: CLINIMIX PER PHARMACY IV NR ×6 (20:00)
[2018-12-11] MEDS ORDERED: TPN PER PHARMACY IV NR ×8 (20:00)
--- NOTE | 2018-12-11 20:12 | NUR ---
SPOKE WITH DR. Travis VOSS RE: BLOOD PRESSURE Notified Dr. Travis Voss that patients blood pressure is 89/69 and heart rate 78. Orders for Albumin 25% 100ml received for now and to continue albumin 25% 100ml every day for 3 days starting tomorrow. Order read back and verified. Will carry out order as received.
[2018-12-11] MEDS ORDERED: ALBUMIN 25% 100 ML IV ONE (20:15)
--- NOTE | 2018-12-12 01:40 | NUR ---
BOWEL MOVEMENT Patient was assisted to the bedside commode with the assistance of pawel Buck. Patient noted to have small dark red bowel movement with blood clots. Patient assisted back into bed with the assistance of this RN and pawel Buck. Patient is laying in bed with head of the bed at 45 degrees and with continuous oxygen saturation at 97% 3L NC. Bed is locked in lowest position, side rails x 2 are up, call light is within reach, and guards noted at the bedside.
--- NOTE | 2018-12-12 02:00 | NUR ---
SACRUM DRESSING CHANGED Per wound care order, sacrum cleansed with mild soap and water. Patted dry with clean gauze and applied Z Guard to sacrum. Optifoam dressing applied to sacrum.
--- NOTE | 2018-12-12 02:45 | NUR ---
ROUNDS Patient is laying in bed, eyes closed, with even and unlabored respirations noted. Head of the bed is at 45 degrees. Patient is on continuous oxygen saturation which shows 100% oxygen saturation on 3L NC. No S/S of distress noted at this time. Bed is locked in lowest position, side rails x 2 are up, call light is within reach, and guards noted at the bedside.
[2018-12-12 05:00] VITALS: BP 102/68
[2018-12-12] MEDS: InsuLIN REG 1unit/0.01ml Soln (100units/ml) SC SCH ×3 (06:00→17:46)
[2018-12-12] MEDS: LACTULOSE 20Gm/30ML SOLN PO SCH ×4 (06:00→18:00)
[2018-12-12] MEDS: FUROSEMIDE 20 MG/2 ML VIAL IV SCH ×2 (06:31→18:00)
[2018-12-12] MEDS: ACCU-CHEK COMFORT CURVE STRIP VI SCH ×3 (06:42→17:46)
--- NOTE | 2018-12-12 07:04 | NUR ---
CLOSING SHIFT NOTE Patient is laying in bed with head of bed at 45 degree. Patient is on continuous pulse ox with oxygen saturation at 96% 3L NC. Even and unlabored respirations noted at this time. Patient denies pain at this time. No S/S of distress noted at this time. Bed is locked in lowest position, side rails x 2 are up, call light is within reach, and guards noted at the bedside. Will endorse patient care to day shift RENATO Shoemaker.
--- NOTE | 2018-12-12 07:35 | NUR ---
Opening Shift Note Assumed care of patient, lethargic barely open his eyes when called by name. Noted generalized edema. No S/S of distress/SOB or pain. Instructed on POC and to call for assist PRN, will continue to monitor for changes Q1hr and PRN.
[2018-12-12] MEDS: Ensure Enlive Chocolate 8oz Bottle PO SCH ×4 (08:00→18:53)
[2018-12-12 09:00] VITALS: BP 99/70
[2018-12-12] MEDS: ALBUMIN 25% 100 ML IV SCH (09:58)
[2018-12-12] MEDS: SODIUM CHLOR 0.9% PF (SALINE LOCK) 10ML VIAL/SYR IV SCH ×2 (09:58→22:00)
[2018-12-12] MEDS: CARVEDILOL 3.125 MG TAB PO SCH (09:59)
[2018-12-12] MEDS: FLUTICASONE PROP NASAL SPR 0.05 % (50MCG) 16GM EACHNOSTRI SCH (10:00)
[2018-12-12 12:00] VITALS: BP 95/67
[2018-12-12 13:31] LABS: Hepatitis A Ab IgM Negative; Hepatitis B Core IgM Negative; Hepatitis B Surface Antigen Negative (Negative)
[2018-12-12 13:32] LABS: Hepatitis C Antibody Negative (Negative)
[2018-12-12 14:33] LABS: Basophils # (auto) 0 uL; Basophils % (auto) 0.3 % (0.0-2.0); Eosinophils # (auto) 0 uL; Eosinophils % (auto) 0.1 % (0.0-7.0); Lymphocytes # (auto) 1.3 uL; Red Blood Cells 4.17 10^6/uL (4.5-5.90); Red Cell Distribution Width 21.6 % (11.8-14.3)
[2018-12-12 14:34] LABS: Hematocrit 39.5 % (41.0-53.0); Mean Corpuscular Hemoglobin 31.2 pg (28.0-32.0); Mean Corpuscular Volume 94.6 fL (80.0-100.0); Monocytes # (auto) 0.6 uL; Neutrophils % (auto) 80.6 % (37.0-80.0); Nucleated Red Blood Cells % 1.5 %; Platelet Count (auto) 39 10^3/uL (140-450)
[2018-12-12 14:45] LABS: INR 3.41 (0.9-1.15)
[2018-12-12 15:02] LABS: Albumin 3.1 g/dL (3.4-5.0); Calcium 8.5 mg/dL (8.5-10.1); Potassium 4.8 mmol/L (3.5-5.1)
[2018-12-12 15:03] LABS: % Iron Saturation 9.8 % (20-55)
[2018-12-12 15:07] LABS: Bilirubin, Total 9.2 mg/dL (0.2-1.0); Total Protein 6.7 g/dL (6.4-8.2)
--- NOTE | 2018-12-12 15:13 | NUR ---
DR. TSE AT BEDSIDE MADE AWARE PT HAD SMALL BM, DARK RED IN MINIMAL AMOUNT, MADE AWARE OF THE LOW PLATELET AND ELEVATED INR, RECEIVED ORDERS AND CARRIED OUT.
[2018-12-12] MEDS ORDERED: PHYTONADIONE (VIT K)10 MG/ML 1ML VIAL SUBCUT ONE (15:15)
[2018-12-12 15:16] LABS: Magnesium 2.7 mg/dL (1.6-2.6); Phosphorus 4.7 mg/dL (2.5-4.90)
--- NOTE | 2018-12-12 18:08 | NUR ---
MEDICATION NOT GIVEN PT REFUSED LACTULOSE, PT EDUCATED ON THE BENEFITS OF TAKING THE LACTULOSE BUT PT CONTINUES TO REFUSE. LASIX HELD DUE TO LOW BP.
--- NOTE | 2018-12-12 19:00 | NUR ---
Opening Shift Note Assumed care of patient, awake but lethargic. Guards on bedside No S/S of distress/SOB or pain. Instructed on POC and to call for assist PRN, will continue to monitor for changes Q1hr and PRN.
[2018-12-12] MEDS ORDERED: CLINIMIX PER PHARMACY IV NR ×3 (20:00)
[2018-12-12 22:00] VITALS: BP 100/72
[2018-12-12] MEDS: rifAXIMin 550 MG TAB PO SCH (22:20)
[2018-12-13 05:00] VITALS: BP 117/84
[2018-12-13] MEDS: InsuLIN REG 1unit/0.01ml Soln (100units/ml) SC SCH ×4 (06:00→18:00)
[2018-12-13] MEDS: LACTULOSE 20Gm/30ML SOLN PO SCH ×5 (06:00→18:00)
[2018-12-13] MEDS: ACCU-CHEK COMFORT CURVE STRIP VI SCH ×4 (06:00→18:47)
[2018-12-13] MEDS: FUROSEMIDE 20 MG/2 ML VIAL IV SCH ×2 (06:25→16:29)
--- NOTE | 2018-12-13 06:55 | NUR ---
Respiratory note: POX CHECK: HR 79, RR 14, SPO2 94% ON 5 L NC. BUBBLE HUMIDIFIER ADDED INLINE TO HELP EASE ANY NASAL DRYNESS. PT IS SLEEPING COMFORTABLY. NO SIGNS OR SYMPTOMS OF RESPIRATORY DISTRESS NOTED AT THIS TIME.
--- NOTE | 2018-12-13 07:50 | NUR ---
Opening Note Assumed care of patient, he is A & O x 3, he is lethargic at this time. Patient has no other complaints at this time. POC discussed with patient. Educated patient that we have to turn him every 2 hours, and how to use call light. Patient bed is in low locked position, call light within reach. Guards at bedside. Patient TPN running at 42 ml/hr. Will continue to monitor Q1h and PRN.
[2018-12-13] MEDS: Ensure Enlive Chocolate 8oz Bottle PO SCH ×3 (08:00→18:00)
[2018-12-13 08:56] VITALS: BP 109/86
[2018-12-13] MEDS: FLUTICASONE PROP NASAL SPR 0.05 % (50MCG) 16GM EACHNOSTRI SCH (10:00)
--- NOTE | 2018-12-13 10:40 | NUR ---
WOUND CARE NOTE: IN TO SEE PATIENT AT THIS TIME FOR WOUND REEVALUATION. ALL WOUND STATS CAN BE FOUND WITHIN WOUND ASSESSMENT, LINKED TO THIS NOTE. CURRENT JAMES SCORE IS 13. PATIENT IS MUCH LESS ACTIVE THAN AT LAST EXAM. HE IS LETHARGIC, NEEDS MAX ASSIST FOR ALL OF HIS ADL'S, INCLUDING REPOSITIONING/TURNING. PATIENT BECOMES SOB UPON ANY EXERTION AT ALL. HE IS BEING CONTINUOUSLY MONITORED FOR OXYGEN SATURATION. PATIENT'S BLISTERS TO BLE ARE ALL MUCH IMPROVED, RESOLVING. NO OPEN OR DRAINING AREAS NOTED. EDEMA TO BOTH LEGS/FEET CONTINUES TO BE PRESENT, BUT IS ALSO MUCH IMPROVED. LEFT ALL WOUNDS OPEN TO AIR AT THIS POINT. PATIENT'S MASD WITH SKIN EROSION TO THE INTRAGLUTEAL FOLD SACRUM HAS WORSENED, IS LARGER NOW, MEASURING 2 X 0.5 CM. WOUND CONTINUES TO BE PARTIAL THICKNESS. APPLIED ZGUARD AND OPTIFOAM GENTLE SACRAL DRESSING. REPOSITIONED PATIENT ONTO RIGHT SIDE, REDISTRIBUTING PRESSURE POINTS WITH PILLOWS. PATIENT IS MUCH LESS MOBILE, SPECIALTY AIR BED HAS BEEN ORDERED. PATIENT TO BE PLACED, PENDING DELIVERY BY AYDIN ARCHULETA. RECOMMEND: SPECIALTY AIR MATTRESS, D/C DRESSING CHANGES TO BILATERAL FEET, CONTINUATION WITH ALL OTHER WOUND CARE ORDERS PREVIOUSLY PRESCRIBED BY MD. WOUND CARE TEAM WILL CONTINUE TO MONITOR. Addendum: 12/13/18 at 1611 by Gabriela Villalba RN Amended: Links added.
[2018-12-13] MEDS: CARVEDILOL 3.125 MG TAB PO SCH (11:48)
[2018-12-13] MEDS: ALBUMIN 25% 100 ML IV SCH (11:48)
[2018-12-13] MEDS: rifAXIMin 550 MG TAB PO SCH ×2 (11:49→21:24)
[2018-12-13] MEDS: SODIUM CHLOR 0.9% PF (SALINE LOCK) 10ML VIAL/SYR IV SCH ×2 (11:54→21:24)
[2018-12-13 12:31] LABS: Albumin 3.1 g/dL (3.4-5.0); BUN/Creatinine Ratio 35.7; Calcium 8.4 mg/dL (8.5-10.1); Magnesium 2.7 mg/dL (1.6-2.6); Potassium 5.4 mmol/L (3.5-5.1)
[2018-12-13 12:34] LABS: Bilirubin, Total 10.2 mg/dL (0.2-1.0); Total Protein 6.6 g/dL (6.4-8.2)
[2018-12-13] MEDS: ONDANSETRON HCL 4 MG/2 ML VIAL IV PRN (12:34)
[2018-12-13 12:50] LABS: Phosphorus 3.5 mg/dL (2.5-4.90)
[2018-12-13 12:56] VITALS: BP 114/78
--- NOTE | 2018-12-13 13:05 | NUR ---
Notified Dr. Prater of patient critical lab value BUN 84
[2018-12-13] MEDS: DOBUTamine 1000MCG/ML 250 ML IV SCH (16:01)
[2018-12-13 16:40] LABS: INR 2.98 (0.9-1.15)
[2018-12-13 17:00] VITALS: BP 134/69
--- NOTE | 2018-12-13 19:30 | NUR ---
Opening Shift Note Assumed care of patient, lethargic and opens eyes to voice. No S/S of distress/SOB or pain. Insructed on POC and to callfor assist PRN, will continue to monitor for changes Q1hr and PRN. Fall and safety precautions in place. Call light within reach. Halfway guards x2 at bedside. Handcuffs applied to bilateral ankles and left wrist.
[2018-12-13] MEDS ORDERED: CLINIMIX PER PHARMACY IV NR ×3 (20:00)
--- NOTE | 2018-12-13 20:30 | NUR ---
HYGIENE Patient was noted to have smear of BM on pads. Handcuffs taken off by prison guard supervisor for patient cleaning. Patient was cleaned of BM. During assessment and inspection of backside, bleeding hemorrhoids were noted on patient's anus. Not clear if patient also had blood in his BM or if blood was from hemorrhoids. With assist from TRASH TRUCK DRIVER, partial linen change done, gown changed, and wound care performed on sacrum per MD orders. No distress noted, patient tolerated well. Patient repositioned to right side with pillow support. Fall and safety precautions in place. Call light within reach. Handcuffs reapplied to bilateral ankles and right wrist by prison guard supervisor. Longterm guards x2 at bedside.
--- NOTE | 2018-12-13 21:00 | NUR ---
RT PAGED Paged RT to change out pulse ox. During initial assessment and inspection, Patient's left 2nd finger noted to have indentation from pulse ox. Paged RT to change for softer pulse ox reader.
--- NOTE | 2018-12-13 21:05 | NUR ---
RT NOTE: CONT PULSE OX CHANGED OUT, PT PLACED BACK ON. PT USING NC 3LPM SPO2 100%, HR 83, RR 118. NO RESPIRATORY DISTRESS NOTED AT THIS TIME.
[2018-12-13 21:13] VITALS: BP 122/77
--- NOTE | 2018-12-13 23:00 | NUR ---
PICC DRESSING PICC dressing changed at this time with assist from warehouse handler Johnathan. Patient tolerated well. Will continue to monitor
[2018-12-14] MEDS: DOBUTamine 1000MCG/ML 250 ML IV SCH ×3 (00:16→18:37)
[2018-12-14] MEDS: ACCU-CHEK COMFORT CURVE STRIP VI SCH ×5 (00:17→23:34)
--- NOTE | 2018-12-14 01:50 | NUR ---
AIR MATTRESS Specialty mattress delivered at this time. All IV lines and tubing disconnected for transfer, handcuffs taken off by private security guard. With assist from help desk technician, MATERIALS SCHEDULER, and primary RN, patient was transferred to air mattress. No distress noted, all IV tubing and oxygen tubing reconnected. Handcuffs reapplied to bilateral ankles and right wrist by private security guard. Patient was asked if he wanted to be repositioned, refusing to be turned at this time. Patient sitting in bed with HOB elevated approximately 45 degrees. Will attempt again at later time. Bed locked and in lowest position, side rails up x3 for patient safety. Longterm guards x2 at bedside. Call light within reach. Will continue to monitor
[2018-12-14] MEDS: HYDROcodone-ACET 10/325MG TAB PO PRN (05:07)
[2018-12-14 05:08] VITALS: BP 117/67
[2018-12-14] MEDS: InsuLIN REG 1unit/0.01ml Soln (100units/ml) SC SCH ×5 (05:29→23:34)
[2018-12-14] MEDS: LACTULOSE 20Gm/30ML SOLN PO SCH ×4 (05:29→18:00)
[2018-12-14] MEDS: Ensure Enlive Chocolate 8oz Bottle PO SCH ×3 (08:00→18:00)
--- NOTE | 2018-12-14 08:00 | NUR ---
ASSESSMENT NOTE PATIENT IS RESTING IN BED IN LOW CAPUTO POSITION, GENERALIS WEAKNESS NOTED WITH EDEMA, PT APPEAR THAT HE IS ACTIVELY DYING, VERY LETHARGIC, SHALLOW AND FAST BREATHING, CONTINUE TO MONITOR HIS LABS, REPOSITIONING HIM EVERY 2 HOURS, KEPT DRY AND CLEAN AT ALL TIMES, HAND CUFFS NOTED ON THE LEFT FOREARM, AND BOTH FEET, CHESCKED FOR CIRCULATION, GUARDS AT BED SIDE AT ALL TIMES.
[2018-12-14 08:51] VITALS: BP 125/72
[2018-12-14] MEDS: FLUTICASONE PROP NASAL SPR 0.05 % (50MCG) 16GM EACHNOSTRI SCH (09:27)
[2018-12-14] MEDS: FUROSEMIDE 20 MG/2 ML VIAL IV SCH (09:29)
[2018-12-14] MEDS: rifAXIMin 550 MG TAB PO SCH ×2 (10:00→21:39)
[2018-12-14] MEDS: SODIUM CHLOR 0.9% PF (SALINE LOCK) 10ML VIAL/SYR IV SCH ×2 (10:00→21:38)
--- NOTE | 2018-12-14 10:00 | NUR ---
LAB WITHDRAW LAB FROM THE PICC LINE, PT TOLERATED WELL
[2018-12-14] MEDS: ALBUMIN 25% 100 ML IV SCH (11:09)
[2018-12-14 11:39] LABS: Basophils # (auto) 0 uL; Eosinophils # (auto) 0.1 uL; Red Blood Cells 3.81 10^6/uL (4.5-5.90)
[2018-12-14 11:41] LABS: Basophils % (auto) 0.3 % (0.0-2.0); Eosinophils % (auto) 1.5 % (0.0-7.0); Lymphocytes # (auto) 0.6 uL; Lymphocytes % (auto) 6.7 % (10.0-50.0); Mean Corpuscular Hemoglobin 31.4 pg (28.0-32.0); Mean Corpuscular Hgb Conc. 34.1 g/dL (32.0-36.0); Monocytes # (auto) 0.7 uL; Monocytes % (auto) 7.4 % (0.0-12.0); Neutrophils % (auto) 84.1 % (37.0-80.0); Nucleated Red Blood Cells % 1.4 %; Platelet Count (auto) 52 10^3/uL (140-450); White Blood Cell 9.5 10^3/uL (4.4-10.8)
[2018-12-14 11:46] LABS: Magnesium 2.7 mg/dL (1.6-2.6); Phosphorus 2.5 mg/dL (2.5-4.90)
[2018-12-14 11:48] LABS: Calcium 8.4 mg/dL (8.5-10.1); Potassium 3.7 mmol/L (3.5-5.1)
[2018-12-14 11:50] LABS: BUN/Creatinine Ratio 40.7; Bilirubin, Total 12.2 mg/dL (0.2-1.0); Total Protein 6.3 g/dL (6.4-8.2)
--- NOTE | 2018-12-14 12:50 | NUR ---
DR TSE GI AT BED SIDE FOLLOWING UP ON PT
[2018-12-14 13:00] VITALS: BP 115/71
--- NOTE | 2018-12-14 15:10 | NUR ---
Nutrition Follow-up Notes Wt. 89.1 kg as of yesterday. Pt's on oxygen via nasal cannula, asleep, deputies at bedside, no signs of distress noted this morning. Pt's currently on Cardiac diet with Ensure Enlive 1 carton TID with inadequate PO intake aeb <50% ave. consumed meals (x3) in last 3 days d/t pt refusing even ONS, per nursing. Pt remains on Clinimix @ 42 ml/hr providing 1030 kcals and 45 gm proteins 850 NPCs. Pt with inadequate PN support d/t lwo initiation rate delivery of diluted formula aeb current PN infusion meets 42% to 50% of est caloric needs and 55% to 69% of est protein needs. Est. Needs IBW 81 [id number] kcal (25-30 kcal/kgBW), 65-81 gms pro (0.8-1.0 gms/kgBW d/t elev RFT wounds). Will continue to monitor pertinent labs and reassess nutrient need prn. will reassess per dry body wt Labs: Gluc 138 H, Na 131 L, Cl 92 L, BUN 83 H, Cr 2.04 H, Ca 8.4 L, Mg 2.7 H, AST 258 H, ALT 524 H, ALP 129 H, Ammonia 53 H, Tpro 6.3 L, Alb 3.0 L; Prealb 6.8 L; Trig 58 wnl Skin: Sheldon 10, high risk skin, pt with right heel resolving blister per RN doc. Pls refer to latest ux developer's notes for details re: tx plans. GI: Pt had 1 BM yesterday per smash piecer PES: Increased nutrient needs r/t acute/chronic medical condition aeb Anasarca, pneumonia, chronic passive congestion of liver, cardiomyopathy, hypertension, mod hypoalbuminemia, poor PO intake with PN support. Altered nutrition related lab values r/t current chronic medical condition AEB elev RFT, hyperbil, mod hypoalb (ongoing) Will continue to monitor PO intake, PN tolerance, skin status, pertinent labs and weight trend. F/u in 2 to 3 days. Rec.: 1.) Continue close supervision and feeding assistance prn during meals. 2.) If pt's PO intake remains inadequate (<75%)< refusing meals with PN support, consider gradual increase on calories and protein to meet at least 75% of est nutrient needs. 3.) Refer pt to RD for further nutrition education and weight monitoring upon discharge. 4.) Continue current plan of care.
[2018-12-14 17:00] VITALS: BP 107/75
--- NOTE | 2018-12-14 18:17 | NUR ---
PATIENT CONTINUE VERY LETHARGIC, REFUSED TO EAT, CONTINUE MONITORING
--- NOTE | 2018-12-14 18:38 | NUR ---
DR DOCKERY IS HERE FOLLOWING UP ON PT
[2018-12-14] MEDS ORDERED: CLINIMIX PER PHARMACY IV NR ×5 (20:00)
--- NOTE | 2018-12-14 20:00 | NUR ---
ASSUMED CARE, PT. AWAKE, ORIENTED X2, WEAK IN APPEARANCE, NO C/O PAIN, GUARDS AT BEDSIDE, REPOSITIONED PT. NOT IN DISTRESS.
[2018-12-14 21:21] VITALS: BP 116/85
[2018-12-15] MEDS: DOBUTamine 1000MCG/ML 250 ML IV SCH ×3 (03:01→21:38)
[2018-12-15 05:05] VITALS: BP 120/72
[2018-12-15] MEDS: ACCU-CHEK COMFORT CURVE STRIP VI SCH ×4 (05:31→23:48)
[2018-12-15] MEDS: LACTULOSE 20Gm/30ML SOLN PO SCH ×5 (05:31→23:48)
[2018-12-15] MEDS: InsuLIN REG 1unit/0.01ml Soln (100units/ml) SC SCH ×4 (05:31→23:48)
[2018-12-15] MEDS: Ensure Enlive Chocolate 8oz Bottle PO SCH ×3 (07:48→18:05)
[2018-12-15 08:49] LABS: Albumin 2.8 g/dL (3.4-5.0); BUN/Creatinine Ratio 38.7; Calcium 7.8 mg/dL (8.5-10.1); Magnesium 2.7 mg/dL (1.6-2.6); Potassium 4.1 mmol/L (3.5-5.1)
[2018-12-15 08:51] LABS: Bilirubin, Total 13.4 mg/dL (0.2-1.0); Phosphorus 2.5 mg/dL (2.5-4.90); Total Protein 6.1 g/dL (6.4-8.2)
[2018-12-15 09:26] VITALS: BP 117/73
[2018-12-15] MEDS: rifAXIMin 550 MG TAB PO SCH ×2 (10:00→21:40)
[2018-12-15] MEDS: FLUTICASONE PROP NASAL SPR 0.05 % (50MCG) 16GM EACHNOSTRI SCH (10:00)
[2018-12-15] MEDS: FUROSEMIDE 20 MG/2 ML VIAL IV SCH (10:00)
--- NOTE | 2018-12-15 10:30 | NUR ---
Refusing medications Patient lethargic and continues to refuse medications. He did allow this nurse to draw blood from PICC line for labs this morning and he is receiving TPN and Dobutamine drip. He also allowed blood sugar checks.
[2018-12-15] MEDS: SODIUM CHLOR 0.9% PF (SALINE LOCK) 10ML VIAL/SYR IV SCH ×2 (11:24→21:38)
[2018-12-15 13:29] VITALS: BP 134/69
[2018-12-15 17:04] VITALS: BP 145/74
--- NOTE | 2018-12-15 19:45 | NUR ---
OPENING NOTE Received report from day shift RN. Patient is in bed receiving 3L O2 via NC. TPN is infusing at this time and patient also receiving dobutamine drip at 5mcg/kg/min in right upper arm PICC line. Patient is A&O X's 4 with some SOB and a dry cough. Lungs are clear to auscultation. He reports no pain. Patient appears lethargic. Educated patient on POC and to use call light when in need of assistance. Guards are present at bedside. Will continue care.
[2018-12-15] MEDS ORDERED: TPN PER PHARMACY IV NR ×7 (20:00)
[2018-12-15 21:30] VITALS: BP 124/74
[2018-12-16 05:00] VITALS: BP 115/61
[2018-12-16] MEDS: LACTULOSE 20Gm/30ML SOLN PO SCH ×4 (06:00→23:48)
[2018-12-16] MEDS: InsuLIN REG 1unit/0.01ml Soln (100units/ml) SC SCH ×3 (06:00→18:24)
[2018-12-16] MEDS: ACCU-CHEK COMFORT CURVE STRIP VI SCH ×3 (06:08→18:24)
[2018-12-16] MEDS: DOBUTamine 1000MCG/ML 250 ML IV SCH ×3 (07:49→20:42)
[2018-12-16 09:00] VITALS: BP 141/96
[2018-12-16] MEDS: FUROSEMIDE 20 MG/2 ML VIAL IV SCH (09:19)
[2018-12-16] MEDS: FLUTICASONE PROP NASAL SPR 0.05 % (50MCG) 16GM EACHNOSTRI SCH (09:19)
[2018-12-16] MEDS: rifAXIMin 550 MG TAB PO SCH ×2 (09:19→21:58)
--- NOTE | 2018-12-16 09:30 | NUR ---
Meds/bathing Patient accepted some of his morning medications but refused the Xifaxan. CNAs cleaned up the patient. One [employer] HOME DEMONSTRATOR reported that she had found him with a full urinal between his legs and some urine on the incontinence pad. She also reported he had BM in the bed. Unknown how long it had been there. This nurse changed the dressing (Optifoam) to his sacrum. The area is red with a small open area in the center. Patient was able to assist with rolling over in bed.
[2018-12-16 10:07] LABS: Basophils # (auto) 0 uL; Basophils % (auto) 0.4 % (0.0-2.0); Eosinophils # (auto) 0.3 uL; Mean Corpuscular Volume 92.3 fL (80.0-100.0)
[2018-12-16 10:09] LABS: Eosinophils % (auto) 3.6 % (0.0-7.0); Hematocrit 36.4 % (41.0-53.0); Hemoglobin 12.5 g/dL (13.5-17.5); Lymphocytes # (auto) 0.6 uL; Lymphocytes % (auto) 8.1 % (10.0-50.0); Mean Corpuscular Hemoglobin 31.8 pg (28.0-32.0); Mean Corpuscular Hgb Conc. 34.4 g/dL (32.0-36.0); Monocytes # (auto) 0.7 uL; Monocytes % (auto) 8.3 % (0.0-12.0); Neutrophils # (auto) 6.4 uL; Neutrophils % (auto) 79.6 % (37.0-80.0); Nucleated Red Blood Cells % 2.4 %; Platelet Count (auto) 58 10^3/uL (140-450); Red Blood Cells 3.94 10^6/uL (4.5-5.90)
[2018-12-16 10:14] LABS: Red Cell Distribution Width 20.6 % (11.8-14.3)
[2018-12-16 10:19] LABS: INR 1.97 (0.9-1.15)
[2018-12-16 10:26] LABS: Albumin 2.9 g/dL (3.4-5.0); Calcium 8.1 mg/dL (8.5-10.1); Magnesium 2.8 mg/dL (1.6-2.6)
[2018-12-16 10:28] LABS: BUN/Creatinine Ratio 38.3; Bilirubin, Total 15.5 mg/dL (0.2-1.0); Phosphorus 3.5 mg/dL (2.5-4.90); Total Protein 6.1 g/dL (6.4-8.2)
--- NOTE | 2018-12-16 11:54 | NUR ---
Nutrition Follow-up Notes Wt. 89.2 kg Pt's on oxygen via nasal cannula, asleep, deputies at bedside, no signs of distress noted this morning. Pt's currently on Cardiac diet with Ensure Enlive 1 carton TID with inadequate PO intake aeb <50% x 2 days per RN doc. Pt on PN support @ 50 ml/hr providing 1260 kcals and 60 gm proteins 1020 NPCs. Pt with inadequate PN support d/t lwo initiation rate delivery of diluted formula aeb current PN infusion meets 51-62% of est caloric needs and 73-92% of est protein needs. Est. Needs IBW 81 [id number] kcal (25-30 kcal/kgBW), 65-81 gms pro (0.8-1.0 gms/kgBW d/t elev RFT wounds). Will continue to monitor pertinent labs and reassess nutrient need prn. will reassess per dry body wt Labs: BUN 75 H, CREAT 1.94 H, CA 7.8 L BETSY 13.4 H, GLU 282 H, PATTIE/LT 175/395 H, ALB 2.8 L. Skin: Sheldon 12, high risk skin, pt with right heel resolving blister per RN doc. Pls refer to latest prosthetic technician's notes for details re: tx plans. GI: Pt had 1 BM today diarr per head of loss prevention PES: Increased nutrient needs r/t acute/chronic medical condition aeb Anasarca, pneumonia, chronic passive congestion of liver, cardiomyopathy, hypertension, mod hypoalbuminemia, poor PO intake with PN support. Altered nutrition related lab values r/t current chronic medical condition AEB elev RFT, hyperbil, mod hypoalb (ongoing) Will continue to monitor PO intake, PN tolerance, skin status, pertinent labs and weight trend. F/u in 2 to 3 days. Rec.: 1.) Continue close supervision and feeding assistance prn during meals. 2.) If pt's PO intake remains inadequate (<75%)< refusing meals with PN support, consider gradual increase on calories and protein to meet at least 75% of est nutrient needs. 3.) Refer pt to RD for further nutrition education and weight monitoring upon discharge. 4.) Continue current plan of care.
[2018-12-16 13:00] VITALS: BP 128/77
--- NOTE | 2018-12-16 15:14 | NUR ---
RT NOTE: WENT TO PTS ROOM TO ASSESS BEDSIDE PULSE OX. VITALS HR- 81, RR 16, SPO2 98% ON 2L NC. PT SLEEPING AT THIS TIME, NO S/S OF SOB. WILL CONTINUE TO MONITOR PT. Addendum: 12/16/18 at 1520 by BEBETO LOPEZ RT RT NOTE: WENT TO PTS ROOM TO ASSESS BEDSIDE PULSE OX. VITALS HR- 81, RR 16, SPO2 98% ON 4L NC. PT SLEEPING AT THIS TIME, NO S/S OF SOB. WILL CONTINUE TO MONITOR PT.
[2018-12-16 17:00] VITALS: BP 122/85
--- NOTE | 2018-12-16 19:26 | NUR ---
POX CHECK. PT HR 85 POX 100% ON 4L NC RR 26. PT WAS HARD TO AROUSE AND DID NOT SPEAK BUT DID OPEN EYES MOMENTARILY.
--- NOTE | 2018-12-16 19:30 | NUR ---
Opening Shift Note Assumed care of patient, from day shift RENATO Prado. Patient is awake and alert x3. Patient reoriented to year. Patient opens his eyes for a few minutes, answers questions, and then closes his eyes again. Guards noted at the bedside. Patient denies pain or shortness of breath at this time. No S/S of distress noted at this time. Patient noted to be on a continuous pulse ox with 97% oxygen saturation on 4L NC. Patient noted to have a double lumen PICC to right upper arm which is infusing TPN and dobutamine drip at 5mcg/kg/min, as ordered by MD. Patient is laying supine with head of the bed at 45 degrees. Instructed on plan of care and to call for assistance as needed. Bed is locked in lowest position, side rails x 2 are up, and call light is within reach.
[2018-12-16] MEDS ORDERED: TPN PER PHARMACY IV SCH ×16 (20:00)
--- NOTE | 2018-12-16 20:30 | NUR ---
HYGIENE Patient was noted to have urine on gown and pads. Handcuffs were taken off patient for patient cleaning. Patient was cleaned and with the assistance of pawel Nicholson a full linen change was done and gown was changed. Patient noted to have dry and intact dressing to sacrum. Patient was repositioned to the left side with pillow support. Patient tolerated well. Patient is laying on bed with head of the bed at 45 degrees. Handcuffs have been reapplied to bilateral legs and left arm. No S/S of distress noted at this time. Patient is on continuous pulse ox with oxygen saturation at 97% 4L NC. Bed is locked in lowest position, side rails x 2 are up, call light is within reach, and guards are noted at the bedside.
[2018-12-16 22:00] VITALS: BP 126/79
--- NOTE | 2018-12-16 23:22 | NUR ---
SPOKE WITH DR. Travis VOSS RE: PAIN MEDICATION Notified Dr. Travis Voss that patient is complaining of throbbing pain to left foot/toes (pain scale 10/10). Orders for acetaminophen 650mg four times a day as needed received. Order read back and verified. Will carry out order as received. Addendum: 12/16/18 at 0974 by GREG MASCORRO RN RN Travis Voss aware of liver enzymes.
[2018-12-16] MEDS: ACETAMINOPHEN 325 MG TAB PO PRN (23:48)
[2018-12-17] MEDS: ACCU-CHEK COMFORT CURVE STRIP VI SCH ×4 (00:20→17:44)
--- NOTE | 2018-12-17 01:14 | NUR ---
ROUNDS Patient laying in bed, eyes closed, with symmetrical chest rise and fall noted. Patient is on continuous pulse ox with oxygen saturation at 100% 4L NC. Bed is locked in lowest position, side rails x 2 are up, call light is within reach, and guards noted at the bedside.
[2018-12-17 05:00] VITALS: BP 127/73
--- NOTE | 2018-12-17 05:10 | NUR ---
SACRUM DRESSING CHANGED Per wound care order, sacrum cleansed with mild soap and water. Patted dry, Zguard, and Optifoam applied to sacrum. Patient is laying in bed with symmetrical chest rise and fall. No S/S of distress noted at this time. Bed is locked in lowest position, side rails x 2 are up, call light is within reach, and guards are noted at the bedside.
[2018-12-17] MEDS: InsuLIN REG 1unit/0.01ml Soln (100units/ml) SC SCH ×4 (05:22→17:45)
[2018-12-17] MEDS: LACTULOSE 20Gm/30ML SOLN PO SCH ×4 (05:23→17:45)
[2018-12-17] MEDS: DOBUTamine 1000MCG/ML 250 ML IV SCH ×2 (06:25→15:44)
--- NOTE | 2018-12-17 06:42 | NUR ---
UNABLE TO DRAW BLOOD FROM PICC LINE Attempted to draw blood from PICC line for morning labs. Unsuccessful due to no blood return from PICC line. Lab called and notified.
--- NOTE | 2018-12-17 07:01 | NUR ---
CLOSING SHIFT NOTE Patient is laying in bed with eyes closed, symmetrical chest rise and fall noted. Patient has a double lumen PICC line to right upper arm which is currently running TPN at 60ml/hr and dobutamine drip at 5mcg/kg/min as ordered by MD. Patient is on continuous pulse ox with oxygen saturation at 97% 3L NC. No S/S of distress noted at this time. Bed is locked in lowest position, side rails x 2 are up, call light is within reach, and guards noted at bedside. Will endorse patient care to Evelyn GROSS.
--- NOTE | 2018-12-17 07:25 | NUR ---
Open Shift Note Received report on patient, awake and slouched in bed with oxygen off. Repositioned patient to a sitting up position and educated patient the importance of keeping nasal cannula on. Patient refusing pillows to prop up lower extremities at this time. Bed in lowest locked position, side rails up x2 and call light within reach. Guards present at bedside. Will continue to monitor.
[2018-12-17 08:10] VITALS: BP 120/75
[2018-12-17 08:25] LABS: Albumin 2.7 g/dL (3.4-5.0); BUN/Creatinine Ratio 37.4; Calcium 8.3 mg/dL (8.5-10.1); Magnesium 2.6 mg/dL (1.6-2.6); Potassium 3.6 mmol/L (3.5-5.1)
[2018-12-17 08:27] LABS: Bilirubin, Total 17.4 mg/dL (0.2-1.0); Total Protein 6.1 g/dL (6.4-8.2)
[2018-12-17] MEDS: FLUTICASONE PROP NASAL SPR 0.05 % (50MCG) 16GM EACHNOSTRI SCH (10:00)
[2018-12-17] MEDS: rifAXIMin 550 MG TAB PO SCH ×3 (10:00→21:54)
[2018-12-17] MEDS: FUROSEMIDE 20 MG/2 ML VIAL IV SCH (10:20)
[2018-12-17 11:12] LABS: Basophils # (auto) 0 uL; Basophils % (auto) 0.3 % (0.0-2.0); Hemoglobin 12.4 g/dL (13.5-17.5); Lymphocytes # (auto) 0.8 uL; Monocytes # (auto) 0.8 uL; Monocytes % (auto) 10.4 % (0.0-12.0); Platelet Count (auto) 56 10^3/uL (140-450)
[2018-12-17 11:14] LABS: Eosinophils # (auto) 0.4 uL; Eosinophils % (auto) 5.2 % (0.0-7.0); Hematocrit 36.9 % (41.0-53.0); Mean Corpuscular Hemoglobin 31.3 pg (28.0-32.0); Mean Corpuscular Hgb Conc. 33.5 g/dL (32.0-36.0); Mean Corpuscular Volume 93.3 fL (80.0-100.0); Neutrophils # (auto) 5.7 uL; Neutrophils % (auto) 74.1 % (37.0-80.0); Nucleated Red Blood Cells % 2.3 %; Red Blood Cells 3.96 10^6/uL (4.5-5.90); White Blood Cell 7.7 10^3/uL (4.4-10.8)
[2018-12-17 11:16] LABS: Red Cell Distribution Width 21.1 % (11.8-14.3)
[2018-12-17 12:12] VITALS: BP 107/52
--- NOTE | 2018-12-17 12:30 | NUR ---
Faxed Records Per Diego's Request Per Dr Cortez's request, medical records faxed over to [facility] in [place]. Person accepting fax is Anurag Sheppard.
[2018-12-17 16:34] VITALS: BP 112/79
--- NOTE | 2018-12-17 18:29 | NUR ---
POX CHECK. SPO2 96% ON 2L NC, HR 85, RR 24, BREATH SOUNDS CLEAR DIMINISHED T/O. PT APPEARS LETHARGIC. NO RESPIRATORY DISTRESS NOTED. WILL CONTINUE TO MONITOR PT.
--- NOTE | 2018-12-17 18:52 | NUR ---
Closing Note Patient asleep in bed, shows no signs of distress at this time. Guards present at bedside.
--- NOTE | 2018-12-17 19:30 | NUR ---
Opening Shift Note Assumed care of patient awake and alert x4. Patient opens his eyes for a few minutes, answers questions, and then closes his eyes again. Guards noted at the bedside. Patient denies pain at this time. No S/S of distress noted at this time. Patient noted to be on a continuous pulse ox with 96% oxygen saturation on 3L NC. Patient noted to have a double lumen PICC to right upper arm which is infusing TPN and dobutamine drip at 5mcg/kg/min, as ordered by MD. Patient is laying supine with head of the bed at 45 degrees. Instructed on plan of care and to call for assistance as needed. Bed is locked in lowest position, side rails x 2 are up, and call light is within reach.
[2018-12-17] MEDS ORDERED: TPN PER PHARMACY IV NR ×8 (20:00)
[2018-12-17 22:00] VITALS: BP 119/84
[2018-12-18] MEDS: ACCU-CHEK COMFORT CURVE STRIP VI SCH ×4 (00:46→18:14)
[2018-12-18] MEDS: DOBUTamine 1000MCG/ML 250 ML IV SCH ×3 (00:51→21:10)
--- NOTE | 2018-12-18 05:34 | NUR ---
BLADDER SCAN Patient complaining of abdomen feeling tight. Patient denies having an urge to urinate or pain at this time. Upon assessment, abdomen was found to be tight and distended. Bladder scan revealed 475ml of fluid. Total urine output for this shift has been 375ml of dark joel urine. Will inform MD.
--- NOTE | 2018-12-18 05:42 | NUR ---
DR. Travis VOSS PAGED RE: PATIENT COMPLAINING OF ABDOMEN FEELING TIGHT Dr. Travis Voss paged regarding patient complaining that this abdomen feels tight. Bladder scan was done which revealed 475mls of fluid. Awaiting call back.
[2018-12-18] MEDS: InsuLIN REG 1unit/0.01ml Soln (100units/ml) SC SCH ×4 (05:47→18:00)
[2018-12-18] MEDS: LACTULOSE 20Gm/30ML SOLN PO SCH ×4 (05:47→18:00)
[2018-12-18 05:48] VITALS: BP 134/67
[2018-12-18 06:46] LABS: Albumin 2.6 g/dL (3.4-5.0); Calcium 8.2 mg/dL (8.5-10.1); Magnesium 2.5 mg/dL (1.6-2.6); Potassium 4.2 mmol/L (3.5-5.1)
[2018-12-18 06:49] LABS: BUN/Creatinine Ratio 37.1; Bilirubin, Total 18.9 mg/dL (0.2-1.0); Phosphorus 2.9 mg/dL (2.5-4.90); Total Protein 6.2 g/dL (6.4-8.2)
--- NOTE | 2018-12-18 07:23 | NUR ---
Respiratory note: POX CHECK: BEDSIDE POX AT BEDSIDE PLUGGED INTO RED OUTLET. HR 89, RR 14, SPO2 98% ON 3L NC. NO SIGNS OR SYMPTOMS OF RESPIRATORY DISTRESS NOTED AT THIS TIME.
--- NOTE | 2018-12-18 07:30 | NUR ---
Opening Shift Note Assumed care of patient, awake, alert, and oriented x3. No S/S of distress, patient reports generalized body pain of 4/10. Bed is locked and in lowest position and call light is within reach. Instructed on POC and to call for assist PRN, and patient verbalized understanding. Will continue to monitor for changes Q1hr and PRN.
--- NOTE | 2018-12-18 09:15 | NUR ---
Received call from pharmacy regarding TPN order.
[2018-12-18] MEDS: FLUTICASONE PROP NASAL SPR 0.05 % (50MCG) 16GM EACHNOSTRI SCH (10:00)
[2018-12-18] MEDS: FUROSEMIDE 20 MG/2 ML VIAL IV SCH (10:13)
[2018-12-18] MEDS: rifAXIMin 550 MG TAB PO SCH ×2 (10:14→21:20)
--- NOTE | 2018-12-18 11:00 | NUR ---
Dr. Cortez, Assistant Field Hockey Coach, at bedside to discuss POC with patient. New orders received.
[2018-12-18 12:18] VITALS: BP 106/64
--- NOTE | 2018-12-18 14:53 | NUR ---
Nutrition Follow-up Notes Wt. 94.5 kg based on be scale as of yesterday. Pt's on oxygen via nasal cannula, asleep, deputies at bedside during rounds this morning. Noted pt c/o generalized pain earlier, currently on Cardiac diet with Ensure Enlive 1 carton TID with inadequate PO intake aeb no record of food intake in last 2 days d/t pt refused, per nursing. Pt's currently on PN support @ 58 ml/hr providing 1470 kcal, 70 gms proteins 1470 NPCs. Pt with inadequate PN support d/t mod initiation rate delivery of less concentrated formula aeb current PN infusion meets 61% to 73% of est caloric needs and 54% to 86% of est protein needs. Noted pt's to receive tonight another PN support at same rate and nutrient concentration. Est. Needs IBW 81 [id number] kcal (25-30 kcal/kgBW), 81-130 gms pro (1.0-1.6 gms/kgBW reassessed d/t severe hypoalbuminemia, wounds). Will continue to monitor pertinent labs and reassess nutrient need prn. will reassess per dry body wt Labs: Gluc 116 H, Na 132 L, Cl 97 L, BUN 52 H, Cr 1.40 H, Ca 8.2 L, Tot ralf 8.9 H, AST/ALT 114/261, ALP 142 H, Tpro 6.2 L, H, Alb 2.6 L, Prealb 4.0 L, Trig 52. Skin: Sheldon 10, high risk skin, pt with intragluteal fold pressure ulcer, right heel resolving blister per RN doc. Pls refer to latest certified dietary manager's notes for details re: tx plans. GI: Pt had 1 BM 12/13/18 per bridge carpenter PES: Increased nutrient needs r/t acute/chronic medical condition aeb Anasarca, pneumonia, chronic passive congestion of liver, cardiomyopathy, hypertension, mod hypoalbuminemia, poor PO intake with PN support. Altered nutrition related lab values r/t current chronic medical condition AEB elev RFT, hyperbil, mod hypoalb (ongoing) Will continue to monitor PO intake, PN tolerance, skin status, pertinent labs and weight trend. F/u in 2 to 3 days. Rec.: 1.) If pt's PO intake remains inadequate (<75%), refusing meals with PN support, consider gradual increase on calories and protein to meet at least 75% of est nutrient needs. 2.) Continue close supervision and feeding assistance prn during meals. 3.) Refer pt to RD for further nutrition education and weight monitoring upon discharge. 4.) Continue current plan of care.
[2018-12-18 16:36] VITALS: BP 136/71
--- NOTE | 2018-12-18 18:45 | NUR ---
Respiratory note: ROUTINE PULSE OX CHECK: PULSE OXIMETER AT BEDSIDE AND IS PLUGGED INTO RED OUTLET. PT IS LYING IN BED WITH NO RESPIRATORY DISTRESS NOTED AT THIS TIME. BREATH SOUNDS WERE DIMINISHED BILATERALLY. HR 90 RR 18 POX 100% ON 3L NASAL CANNULA.
[2018-12-18] MEDS ORDERED: TPN PER PHARMACY IV NR ×7 (20:00)
--- NOTE | 2018-12-18 21:25 | NUR ---
REFUSING MEDICATION Patient refusing 22:00 scheduled medication. Educated patient on why he is receiving the medication and the importance of taking medication, patient states "I am not playing this game." Education was reinforced and patient continues to refuse medication. Patient is laying in bed with head of the bed at 45 degrees. Bed is locked in lowest position, side rails x2 are up, call light is within reach, and guards are at the bedside.
[2018-12-18 22:12] VITALS: BP 150/82
[2018-12-18 22:25] VITALS: BP 149/88
[2018-12-18] MEDS: ACETAMINOPHEN 325 MG TAB PO PRN (22:32)
[2018-12-19] MEDS: ACCU-CHEK COMFORT CURVE STRIP VI SCH ×4 (00:32→17:23)
--- NOTE | 2018-12-19 05:00 | NUR ---
BED LINEN CHANGE/WOUND CARE Full linen change was done with the assistance of pawel Monae. Per wound care order, sacrum cleansed with mild soap and water. Patted dry, Zguard, and Optifoam applied to sacrum. Patient noted to have draining blister to right heel, Optifoam placed with kerlex. Patient noted to have non draining blister to left heel, Optifoam with kerlex was placed as preventive measure. Patient tolerated well. Patient is laying on bed with head of the bed at 30 degrees. No S/S of distress noted at this time. Patient is on continuous pulse ox with oxygen saturation at 97% 4L NC. Bed is locked in lowest position, side rails x 2 are up, call light is within reach, and guards are noted at the bedside.
[2018-12-19] MEDS: LACTULOSE 20Gm/30ML SOLN PO SCH ×4 (05:11→17:22)
[2018-12-19] MEDS: InsuLIN REG 1unit/0.01ml Soln (100units/ml) SC SCH ×4 (05:12→17:23)
[2018-12-19 05:19] VITALS: BP 131/75
--- NOTE | 2018-12-19 06:02 | NUR ---
RT NOTE: PT ASLEEP W/O RESPIRATORY DISTRESS NOTED. LUNG SOUNDS CLEAR T/O. GUARDS AT BED SIDE. WILL CONTINUE TO MONITOR. Addendum: 12/19/18 at 0609 by DANICA BEAR RT RT ON 4L NC SPO2 99 HR 88 RR 16
[2018-12-19] MEDS: DOBUTamine 1000MCG/ML 250 ML IV SCH ×2 (06:26→19:37)
--- NOTE | 2018-12-19 07:20 | NUR ---
Opening Shift Note Assumed care of patient, awake, alert, and oriented x4. No S/S of distress or pain. Bed is locked and in lowest position and call light is within reach. Instructed on POC and to call for assist PRN, and patient verbalized understanding. Will continue to monitor for changes Q1hr and PRN.
[2018-12-19 07:36] LABS: Albumin 2.5 g/dL (3.4-5.0); Calcium 8.3 mg/dL (8.5-10.1); Magnesium 2.3 mg/dL (1.6-2.6)
[2018-12-19 07:41] LABS: Bilirubin, Total 19.7 mg/dL (0.2-1.0); Phosphorus 2.7 mg/dL (2.5-4.90)
[2018-12-19 07:47] LABS: BUN/Creatinine Ratio 34.4; Potassium 2.9 mmol/L (3.5-5.1)
--- NOTE | 2018-12-19 07:47 | NUR ---
CRITICAL POTASSIUM Patient potassium is 2.9. Paged Dr. Delonte Cortez MD, and received an immediate call back. New orders received.
[2018-12-19 09:00] VITALS: BP 108/72
[2018-12-19] MEDS: POTASSIUM CHL 20MEQ/100ML 100 ML IV SCH ×3 (09:15→12:43)
[2018-12-19] MEDS: FLUTICASONE PROP NASAL SPR 0.05 % (50MCG) 16GM EACHNOSTRI SCH (09:34)
[2018-12-19] MEDS: rifAXIMin 550 MG TAB PO SCH ×2 (11:34→20:46)
[2018-12-19] MEDS: FUROSEMIDE 20 MG/2 ML VIAL IV SCH (11:34)
--- NOTE | 2018-12-19 11:35 | NUR ---
Patient refused 1130 Blood sugar check.
--- NOTE | 2018-12-19 12:00 | NUR ---
Physical therapy at bedside.
[2018-12-19 13:00] VITALS: BP 113/69
[2018-12-19] MEDS ORDERED: POTASSIUM CHL 20MEQ/100ML 100 ML IV SCH (15:45)
[2018-12-19 17:00] VITALS: BP 116/81
--- NOTE | 2018-12-19 17:30 | NUR ---
Patient refused 1700 Blood sugar check.
--- NOTE | 2018-12-19 19:05 | NUR ---
Respiratory note: POX CHECKED, PT REMAINS ON CONT. POX MONITOR. HR 95, RR 20, SATS 99% ON 4L NC, DECREASED TO 3LPM. PTS EXTREMITIES ARE COLD, WRAPPED HAND IN WARM BLANKET TO GET POX MONITOR TO READ ACCURATELY. WAS ALARMING UPON ENTERING ROOM. NO DISTRESS NOTED, GUARDS AT BEDSIDE.
[2018-12-19] MEDS ORDERED: TPN PER PHARMACY IV NR ×7 (20:00)
--- NOTE | 2018-12-19 20:00 | NUR ---
Opening Shift Note Assumed care of patient, awake and alert, oriented x4, delayed speech but clear. On 3L via Nc with even and unlabored respirations, no S/S of distress or SOB. Urinal within reach. PICC to right upper arm intact. patient able to turn independently in bed, sacral Optifoam clean, dry and intact. Noted bilateral +2 pitting edema to UE and +4 to bilateral LE, patient refused to elevate extremities, educated on indication, risk and benefits, patient still refused. Bed low locked position with side rails up x 2 and call light within reach, bed alarm on. Guard at bedside. Instructed on POC and to call for assist PRN, will continue to monitor for changes Q1hr and PRN.
[2018-12-19] MEDS: ACETAMINOPHEN 325 MG TAB PO PRN (20:49)
[2018-12-19 22:00] VITALS: BP 125/86
--- NOTE | 2018-12-19 22:10 | NUR ---
MD Delonte Cortez at bedside
--- NOTE | 2018-12-19 22:30 | NUR ---
Wound care dressing change per orders, patient tolerated well.
--- NOTE | 2018-12-20 | NUR ---
Refused Lactulose and Accucheck educated patient on indication for lactulose, benefits of taking lactulose and risk of not taking, patient verbalized understanding and still refused. Patient educated indication and benefit of accucheck, patient continued to refused.
[2018-12-20] MEDS: DOBUTamine 1000MCG/ML 250 ML IV SCH ×3 (02:41→21:04)
[2018-12-20] MEDS: InsuLIN REG 1unit/0.01ml Soln (100units/ml) SC SCH ×5 (05:35→23:36)
[2018-12-20] MEDS: LACTULOSE 20Gm/30ML SOLN PO SCH ×5 (05:35→23:36)
[2018-12-20] MEDS: ACCU-CHEK COMFORT CURVE STRIP VI SCH ×5 (05:35→23:36)
[2018-12-20 05:42] VITALS: BP 112/77
--- NOTE | 2018-12-20 07:00 | NUR ---
Closing note patient resting in bed with oxygen on at 3L via NC with even and unlabored respirations, no s/s of distress. PICC to right upper arm intact and patent with double lumen infusing TPN at 66ml/hr and dobutamine at 26.73ml/hr. Guards at bedside. Bed low locked position with side rails up x 2 and call light within reach. Endorsed care to day shift RENATO Diez.
--- NOTE | 2018-12-20 07:02 | NUR ---
RT NOTE: PT RECEIVED ON 3LNC. PT IS C/O COUGHING SPELLS BUT NO SIGNS OF DISTRESS. SPO2 100 HR 89 RR 22. GUARDS BEDSIDE. WILL CONTINUE TO MONITOR. Addendum: 12/20/18 at 0705 by DANICA BEAR RT RT LUNG SOUNDS CLEAR T/O
[2018-12-20 09:00] VITALS: BP 119/89
[2018-12-20] MEDS: rifAXIMin 550 MG TAB PO SCH ×2 (09:14→21:10)
[2018-12-20] MEDS: ACETAMINOPHEN 325 MG TAB PO PRN ×2 (09:15→21:05)
[2018-12-20] MEDS: FUROSEMIDE 20 MG/2 ML VIAL IV SCH (09:18)
[2018-12-20] MEDS: FLUTICASONE PROP NASAL SPR 0.05 % (50MCG) 16GM EACHNOSTRI SCH (09:21)
[2018-12-20 11:24] LABS: Albumin 2.4 g/dL (3.4-5.0); Calcium 8.1 mg/dL (8.5-10.1); Magnesium 2.3 mg/dL (1.6-2.6); Potassium 4.8 mmol/L (3.5-5.1)
--- NOTE | 2018-12-20 11:24 | NUR ---
Nutrition Follow-up Notes Wt. 96.6 kg Pt's on oxygen via nasal cannula, asleep, deputies at bedside during rounds this morning. Pt is currently on Cardiac diet with Ensure Enlive 1 carton TID with inadequate PO of < 50% x 2 days per RN doc. Pt's currently on PN support @ 66 ml/hr providing 1680 kcal, 80 gms proteins 1360 NPCs. Pt with inadequate PN support d/t mod initiation rate delivery of less concentrated formula aeb current PN infusion meets 69% to 82% of est caloric needs and 61-98% of est protein needs. Est. Needs IBW 81 [id number] kcal (25-30 kcal/kgBW), 81-130 gms pro (1.0-1.6 gms/kgBW reassessed d/t severe hypoalbuminemia, wounds). Will continue to monitor pertinent labs and reassess nutrient need prn. will reassess per dry body wt Labs: BUN 43 H, CA 8.3 L, ALB 2.5 L, GLU 121 H, BETSY 19.7 H, PATTIE/LT 100/213 H Skin: Sheldon 20 low risk skin, pt with intragluteal fold pressure ulcer, right heel resolving blister per RN doc. Pls refer to latest linux unix system administrator's notes for details re: tx plans. GI: Pt had 1 BM 12/13/18 per ip counsel PES: Increased nutrient needs r/t acute/chronic medical condition aeb Anasarca, pneumonia, chronic passive congestion of liver, cardiomyopathy, hypertension, mod hypoalbuminemia, poor PO intake with PN support. Altered nutrition related lab values r/t current chronic medical condition AEB elev RFT, hyperbil, mod hypoalb (ongoing) Will continue to monitor PO intake, PN tolerance, skin status, pertinent labs and weight trend. F/u in 2 to 3 days. Rec.: 1.) If pt's PO intake remains inadequate (<75%), refusing meals with PN support, consider gradual increase on calories and protein to meet at least 75% of est nutrient needs. 2.) Continue close supervision and feeding assistance prn during meals. 3.) Refer pt to RD for further nutrition education and weight monitoring upon discharge. 4.) Continue current plan of care.
[2018-12-20 11:27] LABS: BUN/Creatinine Ratio 35.2; Bilirubin, Total 20.5 mg/dL (0.2-1.0); Phosphorus 3.2 mg/dL (2.5-4.90); Total Protein 6.2 g/dL (6.4-8.2)
--- NOTE | 2018-12-20 12:28 | NUR ---
WOUND CARE NOTE: Wound care in to see patient for reevaluation of wounds. Patient continue resting on air bed in Rm. 238. Patient is awake, alert and able to follow simple direction. He's able to assist in turning and repositioning and his Sheldon score is 20. Skin/wound assessment done with the assistance of patient's nurse, RENATO Diez. Patient's BLE are still edematous. Blister to his L heel and L medial ankle continue to improve, clean and dry, however open blister to his R heel (4x3cm) is open red/pale pink,macerated and blister to L dorsal foot (0.7x1cm) open draining moderate serous drainage . Cleansed open blisters, applied Thera honey gel covered with Opti foam dressing, wrapped with Kerlix and secured with tape. Patient's medial sacrum at intragluteal fold continue to display MASD with open wound measuring 1.8x1 cm. Wound bed is red with dark red agnes wound, minimal serous drainage noted, no odor noted. Cleansed sacral wound and changed the dressing as ordered. New photograph of wounds are taken for reference. Repositioned patient for comfort facing his Rt. side, redistributed pressure points with pillows. Patient tolerated well. [facility] guards at bedside. RECOMMENDATION: Continue with EOD dressing change to BLE as blisters open and draining per MD order, continuation of all other wound care orders prescribed by MD, Continue with skin/wound plan of care, continue monitoring by wound care while patient is hospitalized. Addendum: 12/20/18 at 1750 by Lizz Schilling RN Amended: Links added.
--- NOTE | 2018-12-20 12:49 | NUR ---
WOUND CARE NURSE SAW PATIENT. ALL DRESSINGS CHANGED
[2018-12-20 13:00] VITALS: BP 108/68
[2018-12-20] MEDS: BUMETANIDE INJECTION 12.5 MG in GIVE UN-DILUTED 0 ML IV SCH ×2 (16:33→21:57)
[2018-12-20 17:00] VITALS: BP 102/64
[2018-12-20] MEDS: Ensure HIGH Protein Chocolate 8oz Bottle PO SCH ×3 (17:46→22:11)
[2018-12-20] MEDS ORDERED: TPN PER PHARMACY IV NR ×7 (20:00)
--- NOTE | 2018-12-20 20:00 | NUR ---
Opening Shift Note Assumed care of patient, awake and alert, oriented x4, follows directions, apathetic. On 3L via NC with even and unlabored respirations, no S/S of distress or SOB, continuos pulse ox on with o2 sat 97%. Urinal within reach. PICC double lumen to right upper arm intact. Patient is able to turn independently in bed, sacral Optifoam clean, dry and intact. Bilateral heel dressings clean, dry and intact. Noted bilateral +2 pitting edema to UE and +4 to bilateral LE, patient refused to elevate extremities, educated on indication, risk and benefits, patient still refused. Bed low locked position with side rails up x 2 and call light within reach, bed alarm on. Guard at bedside. Instructed on POC and to call for assist PRN, will continue to monitor for changes Q1hr and PRN.
[2018-12-20 22:00] VITALS: BP 104/65
--- NOTE | 2018-12-20 22:52 | NUR ---
Respiratory note: CONT. POX CHECKED. PT CURRENTLY SLEEPING, ON RA, SPO2 100%, HR 82, RR 22. 2L NC RUNNING AT THE BEDSIDE.
[2018-12-21 04:54] VITALS: BP 121/73
[2018-12-21] MEDS: InsuLIN REG 1unit/0.01ml Soln (100units/ml) SC SCH ×3 (06:00→18:00)
[2018-12-21] MEDS: Ensure HIGH Protein Chocolate 8oz Bottle PO SCH ×4 (06:00→22:00)
[2018-12-21] MEDS: LACTULOSE 20Gm/30ML SOLN PO SCH ×3 (06:00→18:00)
[2018-12-21] MEDS: ACCU-CHEK COMFORT CURVE STRIP VI SCH ×3 (06:11→18:18)
[2018-12-21] MEDS: DOBUTamine 1000MCG/ML 250 ML IV SCH ×2 (06:31→18:25)
--- NOTE | 2018-12-21 06:59 | NUR ---
Closing note patient resting in bed even and unlabored respirations, no s/s of distress. PICC to right upper arm intact and patent with double lumen infusing TPN at 75ml/hr and dobutamine at 26.73ml/hr with y-site Bumex at 2ml/hr. Guards at bedside. Bed low locked position with side rails up x 2 and call light within reach. Endorsed care to day shift RENATO Diez.
[2018-12-21 07:01] LABS: Albumin 2.4 g/dL (3.4-5.0); Calcium 8.3 mg/dL (8.5-10.1)
[2018-12-21 07:04] LABS: BUN/Creatinine Ratio 32.2; Bilirubin, Total 19.8 mg/dL (0.2-1.0); Phosphorus 2.7 mg/dL (2.5-4.90); Total Protein 6.2 g/dL (6.4-8.2)
[2018-12-21 07:08] LABS: Potassium 2.9 mmol/L (3.5-5.1)
[2018-12-21] MEDS: POTASSIUM CHL 20MEQ/100ML 100 ML IV SCH ×2 (07:33→09:44)
[2018-12-21 08:00] VITALS: BP 118/88
[2018-12-21] MEDS: rifAXIMin 550 MG TAB PO SCH ×2 (09:40→22:38)
[2018-12-21] MEDS: metOLazone 5 MG TAB PO SCH (09:43)
[2018-12-21] MEDS: FLUTICASONE PROP NASAL SPR 0.05 % (50MCG) 16GM EACHNOSTRI SCH (09:43)
[2018-12-21] MEDS ORDERED: POTASSIUM CHL 20 Meq TABLET PO ONE (11:45)
[2018-12-21 12:00] VITALS: BP 122/76
[2018-12-21] MEDS ORDERED: POTASSIUM PHOSP 22MEQ(15MMOLE) in NS 100 ML IV ONE (14:00)
[2018-12-21 17:00] VITALS: BP 136/83
--- NOTE | 2018-12-21 18:46 | NUR ---
Respiratory note: FOUND PT ON ROOM AIR FOR PULSE OX CHECK, PT PRESENTING NO RESPIRATORY DISTRESS, RESTING IN BED COMFORTABLY. HR 90, SPO2 94% ON ROOM AIR. RR 18, BS DIMINISHED. GUARDS AT BEDSIDE. WILL CONTINUE TO MONITOR.
[2018-12-21 19:10] LABS: BUN/Creatinine Ratio 32.2; Calcium 8.3 mg/dL (8.5-10.1); Potassium 4.6 mmol/L (3.5-5.1)
--- NOTE | 2018-12-21 19:30 | NUR ---
Opening Shift Note Assumed care of patient. Patient awake and alert x4 with guards at bedside. PICC line in place in the right upper arm, double lumen, intact and patent. Urinal within reach. No S/S of distress/SOB or pain. Instructed on POC and to call for assist PRN, will continue to monitor for changes. Bed locked in lowest position and bed rails up x2. Call light within reach.
[2018-12-21] MEDS ORDERED: TPN PER PHARMACY IV NR ×8 (20:00)
[2018-12-21 22:00] VITALS: BP 98/60
--- NOTE | 2018-12-22 | NUR ---
Patient refused Lactulose medication. Educated patient on risk and possible benefits.
[2018-12-22] MEDS: DOBUTamine 1000MCG/ML 250 ML IV SCH ×2 (04:00→15:28)
[2018-12-22 05:00] VITALS: BP 109/66
--- NOTE | 2018-12-22 05:00 | NUR ---
Emptied 2825 urine output on this shift so far
[2018-12-22] MEDS: LACTULOSE 20Gm/30ML SOLN PO SCH ×4 (06:00→18:00)
[2018-12-22] MEDS: InsuLIN REG 1unit/0.01ml Soln (100units/ml) SC SCH ×4 (06:00→18:00)
--- NOTE | 2018-12-22 06:30 | NUR ---
Emptied another 800ml of urine output.
[2018-12-22] MEDS: ACCU-CHEK COMFORT CURVE STRIP VI SCH ×4 (06:46→18:00)
[2018-12-22] MEDS: Ensure HIGH Protein Chocolate 8oz Bottle PO SCH ×4 (06:47→21:56)
--- NOTE | 2018-12-22 07:55 | NUR ---
Respiratory note: FOUND PT ON ROOM AIR FOR PULSE OX CHECK, PT PRESENTING NO RESPIRATORY DISTRESS, RESTING IN BED COMFORTABLY. HR 89, SPO2 94% ON 3L NC. RR 18, BS DIMINISHED. GUARDS AT BEDSIDE. WILL CONTINUE TO MONITOR.
[2018-12-22 08:00] VITALS: BP 102/43
[2018-12-22] MEDS: FLUTICASONE PROP NASAL SPR 0.05 % (50MCG) 16GM EACHNOSTRI SCH (09:25)
[2018-12-22] MEDS: rifAXIMin 550 MG TAB PO SCH ×2 (09:48→21:56)
[2018-12-22] MEDS: metOLazone 5 MG TAB PO SCH (09:50)
[2018-12-22 10:43] LABS: Albumin 2.4 g/dL (3.4-5.0); Calcium 8.1 mg/dL (8.5-10.1); Magnesium 1.8 mg/dL (1.6-2.6); Potassium 4.6 mmol/L (3.5-5.1)
[2018-12-22 10:46] LABS: BUN/Creatinine Ratio 31.7; Bilirubin, Total 17.6 mg/dL (0.2-1.0); Phosphorus 3.2 mg/dL (2.5-4.90); Total Protein 6.6 g/dL (6.4-8.2)
[2018-12-22 12:00] VITALS: BP 124/76
--- NOTE | 2018-12-22 14:01 | NUR ---
Nutrition Follow-up Notes Wt. 96.6 kg Pt's on oxygen via nasal cannula, deputies at bedside, no signs of distress noted earlier, currently on Cardiac diet with Ensure High Prot 1 carton TID with inadequate PO intake aeb < 50% (x4) in last 3 days d/t pt refused, per nursing. Pt's currently on TPN@ 83 ml/hr providing 2100 kcal, 100 gms proteins 1700 NPCs. Pt with adequate PN support d/t high initiation rate delivery of concentrated formula aeb current PN infusion meets 86% to 86% of est caloric needs and 77% to 123% of est protein needs. Noted pt's to receive tonight another TPN @ same rate and nutrient concentration. Est. Needs IBW 81 [id number] kcal (25-30 kcal/kgBW), 81-130 gms pro (1.0-1.6 gms/kgBW reassessed d/t severe hypoalbuminemia, wounds). Will continue to monitor pertinent labs and reassess nutrient need prn. will reassess per dry body wt Labs: Cl 94 L, CO2 35 H, BUN 39 H, Ca 8.3 L, Tpro 5.2 L, Alb 2.4 L, Tot ralf 19.8 H, AST/ALT 96/172 H, ALP 154 H Skin: Sheldon 21, low risk skin, pt with intragluteal fold MASD with open wound, right heel resolving blister per RN doc. Pls refer to latest care transport nurse's notes for details re: tx plans. GI: Pt had 1 BM 12/21/18 per net application architect PES: Increased nutrient needs r/t acute/chronic medical condition aeb Anasarca, pneumonia, chronic passive congestion of liver, cardiomyopathy, hypertension, mod hypoalbuminemia, poor PO intake with PN support. Altered nutrition related lab values r/t current chronic medical condition AEB elev RFT, hyperbil, mod hypoalb (ongoing) Will continue to monitor PO intake, PN tolerance, skin status, pertinent labs and weight trend. F/u in 2 to 3 days. Rec.: 1.) Continue close supervision and feeding assistance prn during meals. 2.) If pt's PO intake remains inadequate (<75%), continue PN support that meets at least 75% of est nutrient needs. 3.) Refer pt to RD for further nutrition education and weight monitoring upon discharge. 4.) Continue current plan of care.
[2018-12-22] MEDS: BUMETANIDE INJECTION 12.5 MG in GIVE UN-DILUTED 0 ML IV SCH (15:29)
[2018-12-22 17:00] VITALS: BP 113/69
--- NOTE | 2018-12-22 18:17 | NUR ---
PT ROUTINE POX CHECK DONE. PT FOUND ON ROOM AIR. POX 92% HR 99 RR 16. NO VISIBLE RESPIRATORY DISTRESS NOTED.
--- NOTE | 2018-12-22 19:30 | NUR ---
Opening Shift Note Assumed care of patient. Patient awake and alert x4 with guards at bedside. PICC line in place in the right upper arm, double lumen, intact and patent. Urinal within reach. No S/S of distress/SOB or pain. Patient currently resting on room air and placed on 3lpm NC with O2 Sat of 94%. Instructed on POC and to call for assist PRN, will continue to monitor for changes. Bed locked in lowest position and bed rails up x2. Call light within reach.
[2018-12-22] MEDS ORDERED: TPN PER PHARMACY IV NR ×8 (20:00)
--- NOTE | 2018-12-22 22:52 | NUR ---
technical professional called about patient having run of PVC. Entered room to check on patient. Patient resting comfortably with no s/s of distress or pain. Patient placed back on 3lpm NC. Emptied 450 ml of urine from urinal with a dark joel urine appearance.
--- NOTE | 2018-12-23 00:29 | NUR ---
Patient refused oxygen NC. O2 Saturation monitor showing desaturations down to the low 80's.
--- NOTE | 2018-12-23 00:30 | NUR ---
Patient refused Patient refused Lactulose medication and his oxygen NC. Respiratory paged to assess and evaluate patient. Addendum: 12/23/18 at 0119 by JORDAN QUIÑONES RN RN Walter GROSS made aware
[2018-12-23] MEDS: DOBUTamine 1000MCG/ML 250 ML IV SCH ×3 (00:47→18:49)
[2018-12-23] MEDS: ACCU-CHEK COMFORT CURVE STRIP VI SCH ×5 (00:47→23:31)
--- NOTE | 2018-12-23 01:26 | NUR ---
O2 saturation probe changed. O2 saturation at 96% on room air. Will continue to monitor.
--- NOTE | 2018-12-23 05:25 | NUR ---
Paged Dr. Delonte Cortez regarding patient not wanting to eat and refusing his lactulose medication as well as a request for a Perez catheter insertion
--- NOTE | 2018-12-23 05:25 | NUR ---
Dr. Delonte Cortez exchange answered and took note of my message and to page the Dr. They asked if it could possibly wait until 09:00 as that will possibly be the time that he calls back
[2018-12-23 05:39] VITALS: BP 125/101
[2018-12-23] MEDS: Ensure HIGH Protein Chocolate 8oz Bottle PO SCH ×4 (06:00→22:17)
[2018-12-23] MEDS: LACTULOSE 20Gm/30ML SOLN PO SCH ×5 (06:00→23:32)
--- NOTE | 2018-12-23 06:30 | NUR ---
800ml of urine output from urinal
[2018-12-23] MEDS: InsuLIN REG 1unit/0.01ml Soln (100units/ml) SC SCH ×5 (06:43→23:32)
--- NOTE | 2018-12-23 07:00 | NUR ---
PICC dressing changed on the 20 of December
[2018-12-23 08:00] VITALS: BP 122/76
[2018-12-23 08:29] LABS: Albumin 2.7 g/dL (3.4-5.0); Calcium 8.9 mg/dL (8.5-10.1); Magnesium 1.8 mg/dL (1.6-2.6); Potassium 3.1 mmol/L (3.5-5.1)
[2018-12-23 08:32] LABS: BUN/Creatinine Ratio 31.3; Bilirubin, Total 16.9 mg/dL (0.2-1.0); Phosphorus 3.9 mg/dL (2.5-4.90); Total Protein 7.4 g/dL (6.4-8.2)
--- NOTE | 2018-12-23 08:40 | NUR ---
CRITICAL VALUE OF CO2 EQUALLING [address] RECEIVED AND REPORTED TO DR. Delonte VOSS. RECEIVED ORDERS FOR POTASSIUM 20 MEQ IV RIDER TIMES 2 BAGS FOR A TOTAL OF 40 MEQ
[2018-12-23] MEDS: POTASSIUM CHL 20MEQ/100ML 100 ML IV SCH ×2 (09:02→10:46)
[2018-12-23] MEDS: FLUTICASONE PROP NASAL SPR 0.05 % (50MCG) 16GM EACHNOSTRI SCH (10:00)
[2018-12-23] MEDS: rifAXIMin 550 MG TAB PO SCH ×2 (10:46→22:18)
[2018-12-23] MEDS: metOLazone 5 MG TAB PO SCH (10:47)
--- NOTE | 2018-12-23 11:30 | NUR ---
RT NOTE: WENT TO PTS ROOM TO ASSESS BEDSIDE PULSE OX. VITALS HR- 92, RR 18, SPO2 96% ON RA. PT IN BED. NO S/S OF SOB. WILL CONTINUE TO MONITOR PT.
[2018-12-23 12:00] VITALS: BP 129/77
[2018-12-23] MEDS ORDERED: acetaZOLAMIDE SODIUM 500 MG VL IV ONE (13:15)
--- NOTE | 2018-12-23 15:26 | NUR ---
patient dressings changed
[2018-12-23] MEDS ORDERED: POTASSIUM CHL 20 Meq TABLET PO SCH (16:00)
[2018-12-23 17:00] VITALS: BP 117/73
[2018-12-23] MEDS: BUMETANIDE 1mg/4ml VIAL (0.25mg/ml) IV SCH (18:24)
[2018-12-23] MEDS ORDERED: TPN PER PHARMACY IV NR ×8 (20:00)
[2018-12-23 22:00] VITALS: BP 90/58
[2018-12-23] MEDS: POTASSIUM CHL 20 Meq TABLET PO SCH (22:18)
[2018-12-24] MEDS: DOBUTamine 1000MCG/ML 250 ML IV SCH ×3 (02:20→21:21)
[2018-12-24 05:00] VITALS: BP 85/62
[2018-12-24] MEDS: ACCU-CHEK COMFORT CURVE STRIP VI SCH ×3 (05:43→17:00)
[2018-12-24] MEDS: Ensure HIGH Protein Chocolate 8oz Bottle PO SCH ×4 (05:43→22:00)
[2018-12-24] MEDS: InsuLIN REG 1unit/0.01ml Soln (100units/ml) SC SCH ×3 (05:43→17:01)
[2018-12-24 05:46] LABS: Albumin 2.6 g/dL (3.4-5.0); Calcium 8.9 mg/dL (8.5-10.1); Magnesium 2.1 mg/dL (1.6-2.6); Potassium 3.2 mmol/L (3.5-5.1)
[2018-12-24 05:52] LABS: BUN/Creatinine Ratio 32.8; Bilirubin, Total 13.8 mg/dL (0.2-1.0); Phosphorus 3.7 mg/dL (2.5-4.90); Pre Albumin 5.2 mg/dL (20.0-40.0); Total Protein 7.2 g/dL (6.4-8.2)
--- NOTE | 2018-12-24 05:54 | NUR ---
Patient refused 0600 Bumex and Lactulose. Patient stated "I am tired of going to the restroom, I'll talk to the doctor later".
[2018-12-24] MEDS: LACTULOSE 20Gm/30ML SOLN PO SCH ×3 (05:55→16:59)
[2018-12-24] MEDS: BUMETANIDE 1mg/4ml VIAL (0.25mg/ml) IV SCH ×3 (05:55→12:12)
[2018-12-24 09:00] VITALS: BP 86/55
[2018-12-24] MEDS ORDERED: acetaZOLAMIDE SODIUM 500 MG VL IV ONE (09:45)
[2018-12-24] MEDS: FLUTICASONE PROP NASAL SPR 0.05 % (50MCG) 16GM EACHNOSTRI SCH (10:00)
[2018-12-24] MEDS: rifAXIMin 550 MG TAB PO SCH ×2 (10:33→23:00)
[2018-12-24] MEDS: POTASSIUM CHL 20 Meq TABLET PO SCH ×2 (10:33→23:00)
--- NOTE | 2018-12-24 11:25 | NUR ---
Respiratory note: PULSE OX CHECK: SPO2 96% ON RA HR 89 RR 18. PT SITTING UP IN BED, NO RESPIRATORY DISTRESS NOTED.
--- NOTE | 2018-12-24 11:34 | NUR ---
Nutrition Follow-up Notes Wt. 96.6 kg Pt's on oxygen via nasal cannula, deputies at bedside, no signs of distress noted earlier, currently on Cardiac diet with Ensure High Prot 1 carton TID with inadequate PO intake aeb < 50% x 2 days per RN doc. Pt's currently on TPN@ 77 ml/hr providing 1860 kcal, 100 gms proteins 1460 NPCs. Pt with adequate PN support d/t high initiation rate delivery of concentrated formula aeb current PN infusion meets 76-91% of est caloric needs and 77% to 123% of est protein needs. Est. Needs IBW 81 [id number] kcal (25-30 kcal/kgBW), 81-130 gms pro (1.0-1.6 gms/kgBW reassessed d/t severe hypoalbuminemia, wounds). Will continue to monitor pertinent labs and reassess nutrient need prn. will reassess per dry body wt Labs: BUN 45 H, CREAT 1.37 H, BETSY 13.8 H, PATTIE/LT 110/62 H, ALB 2.6 L, PREALB 5.2 L. Skin: Sheldon 18, mod risk skin, pt with intragluteal fold MASD with open wound, right heel resolving blister per RN doc. Pls refer to latest program services planner's notes for details re: tx plans. GI: Pt had 1 BM 12/21/18 per division traffic superintendent PES: Increased nutrient needs r/t acute/chronic medical condition aeb Anasarca, pneumonia, chronic passive congestion of liver, cardiomyopathy, hypertension, mod hypoalbuminemia, poor PO intake with PN support. Altered nutrition related lab values r/t current chronic medical condition AEB elev RFT, hyperbil, mod hypoalb (ongoing) Will continue to monitor PO intake, PN tolerance, skin status, pertinent labs and weight trend. F/u in 2 to 3 days. Rec.: 1.) Continue close supervision and feeding assistance prn during meals. 2.) If pt's PO intake remains inadequate (<75%), continue PN support that meets at least 75% of est nutrient needs. 3.) Refer pt to RD for further nutrition education and weight monitoring upon discharge. 4.) Continue current plan of care.
--- NOTE | 2018-12-24 12:41 | NUR ---
Pt reports having no motivation to getting out of bed Pt sat at the edge of the bed for approx 10 to 15 minutes. Pt was able to complete x 10 reps of knee extension exercises on bilat LE's Pt was able to complete sit to stand modAx2, twice;1 attempt was able to static stand for approx 1min and on 2nd try patient was able to stand for approx 2min Pt was left sitting at the edge of the bed at the end of treatment Addendum: 12/24/18 at 1244 by Whit Romano PT Amended: Links added.
[2018-12-24 12:43] VITALS: BP 100/51
[2018-12-24] MEDS ORDERED: POTASSIUM CHL 20 Meq TABLET PO ONE ×2 (13:15→14:30)
--- NOTE | 2018-12-24 13:50 | NUR ---
CHANGED DRESSING ON BILATERAL FEET. NO COMPLAINTS OF PAIN.
--- NOTE | 2018-12-24 14:21 | NUR ---
PAGED DR. DOCKERY TO CLARIFY POTASSIUM ORDER.
[2018-12-24 17:00] VITALS: BP 113/69
--- NOTE | 2018-12-24 18:46 | NUR ---
RT NOTE: NO SIGNS OF RESPIRATORY DISTRESS NOTED. LUNG SOUNDS CLEAR/DIMINISHED T/O. ON RA SPO2 100 HR 91 RR 14. GUARDS AT BEDSIDE. WILL CONTINUE TO MONITOR.
--- NOTE | 2018-12-24 19:30 | NUR ---
Opening Shift Note Assumed care of patient, quietly resting in semi- position on L side at mid-bed. HOB elevated into high German's position. Pt shackled to bed rails. No S/S of distress/SOB or pain. Instructed on POC and to call for assist PRN. This RN will continue to monitor for changes Q1hr and PRN. Bed in low position; locked. Nurse call light within pt's reach. Guards present in room and in anteroom. Pt argumentative, uncooperative.
--- NOTE | 2018-12-24 19:30 | NUR ---
Opening Shift Note Assumed care of patient, awake and alert. No S/S of distress/SOB or pain. Instructed on POC and to call for assist PRN. This RN will continue to monitor for changes Q1hr and PRN. Bed locked in low position. HOB in semi-German's position. Nurse call light within pt's reach. Addendum: 12/25/18 at 0340 by GERTRUDE LIPSCOMB RN Above note entered on wrong pt.
[2018-12-24] MEDS ORDERED: TPN PER PHARMACY IV NR ×7 (20:00)
[2018-12-24 22:00] VITALS: BP 94/68
[2018-12-25] MEDS: ACCU-CHEK COMFORT CURVE STRIP VI SCH ×4 (00:05→18:00)
[2018-12-25 05:00] VITALS: BP 101/66
[2018-12-25] MEDS: Ensure HIGH Protein Chocolate 8oz Bottle PO SCH ×4 (06:00→21:09)
[2018-12-25] MEDS: InsuLIN REG 1unit/0.01ml Soln (100units/ml) SC SCH ×4 (06:00→18:00)
[2018-12-25] MEDS: LACTULOSE 20Gm/30ML SOLN PO SCH ×4 (06:00→18:00)
[2018-12-25] MEDS: DOBUTamine 1000MCG/ML 250 ML IV SCH ×2 (06:54→21:08)
--- NOTE | 2018-12-25 07:57 | NUR ---
Opening Shift Note: Assumed care of patient, awake and alert, in position in bed. Patient refuses to adjust at this time. Guards at bedside. No S/S of distress/SOB or pain. Bed in lowest locked position, side rails up x 2, call light within reach. Instructed on POC and to call for assist PRN, will continue to monitor for changes Q1hr and PRN.
--- NOTE | 2018-12-25 08:32 | NUR ---
RT NOTE: WENT TO PTS ROOM TO ASSESS BEDSIDE PULSE OX. VITALS HR- 91, RR 18, SPO2 96% ON RA. PT SLEEPING IN BED. NO S/S OF SOB. WILL CONTINUE TO MONITOR PT.
[2018-12-25 08:56] VITALS: BP 103/74
[2018-12-25] MEDS: POTASSIUM CHL 20 Meq TABLET PO SCH ×2 (09:46→21:09)
[2018-12-25] MEDS: BUMETANIDE 1mg/4ml VIAL (0.25mg/ml) IV SCH (09:46)
[2018-12-25] MEDS: rifAXIMin 550 MG TAB PO SCH ×2 (09:46→21:10)
[2018-12-25] MEDS: FLUTICASONE PROP NASAL SPR 0.05 % (50MCG) 16GM EACHNOSTRI SCH (10:00)
[2018-12-25 11:55] LABS: Anion Gap 11 (5-15); BUN/Creatinine Ratio 38.2; Blood Urea Nitrogen 50 mg/dL (7-18); Carbon Dioxide 30 mmol/L (21-32); Chloride 93 mmol/L (98-107); GFR African American 74 mL/min; GFR Non-African American 61 mL/min; Glucose 117 mg/dL (74-106); Potassium 3.3 mmol/L (3.5-5.1); Sodium 134 mmol/L (136-145)
[2018-12-25 11:56] LABS: Alanine Aminotransferase 161 U/L (16-61); Albumin 2.6 g/dL (3.4-5.0); Alkaline Phosphatase 155 U/L (45-117); Aspartate Aminotransferase 112 U/L (15-37); Bilirubin, Total 12.3 mg/dL (0.2-1.0); Calcium 8.5 mg/dL (8.5-10.1); Magnesium 2.4 mg/dL (1.6-2.6); Phosphorus 2.9 mg/dL (2.5-4.90); Total Protein 7.6 g/dL (6.4-8.2)
[2018-12-25] MEDS ORDERED: POTASSIUM CHL 20 Meq TABLET PO ONE (12:15)
[2018-12-25 13:00] VITALS: BP 99/71
--- NOTE | 2018-12-25 16:46 | NUR ---
SACRAL DRESSING CHANGED, PATIENT TOLERATED WELL.
[2018-12-25 17:00] VITALS: BP 90/71
[2018-12-25] MEDS ORDERED: TPN PER PHARMACY IV NR ×7 (20:00)
--- NOTE | 2018-12-25 20:10 | NUR ---
RECEIVED PATIENT IN BED, AAOX3. CONFUSED TO PLACE. INTRODUCED MYSELF TO THE PATIENT. CORRECTION OFFICERS ARE IN THE ROOM. PATIENT HAS MILD SOB AT REST. ANKLE SWELLING NOTED. PATIENT HAS SKIN ISSUES. PLEASE SEE SKIN ASSESSMENT. DENIES ANY PAIN NOW. PATIENT IS ABLE TO TURN FROM SIDE TO SIDE WITH MINIMAL ASSIST. DOBUTAMINE BAG IS COMPLETELY DRY. HUNG A NEW BAG. POCS DISCUSSED WITH PATIENT. PATIENT DID NOT RESPOND WHETHER UNDERSTOOD THE POCS OR NOT. SIDE RAILS UP. CALL LIGHT/TABLE IN REACH. KEPT COMFORTABLE.
--- NOTE | 2018-12-25 20:35 | NUR ---
Respiratory note: AT BEDSIDE FOR POX CHECK. POX 93-94% ON RA, HR 98-100, BS ARE DIMINISHED CLEAR T/O. WILL CONTINUE TO MONITOR NEEDED. GUARDS AT BEDSIDE.
[2018-12-25 22:00] VITALS: BP 95/65
[2018-12-26 01:02] VITALS: BP 95/65
[2018-12-26 05:00] VITALS: BP 101/72
[2018-12-26] MEDS: DOBUTamine 1000MCG/ML 250 ML IV SCH ×3 (05:15→20:13)
[2018-12-26] MEDS: LACTULOSE 20Gm/30ML SOLN PO SCH ×4 (05:18→18:00)
[2018-12-26] MEDS: Ensure HIGH Protein Chocolate 8oz Bottle PO SCH ×4 (05:18→21:57)
[2018-12-26] MEDS: ACCU-CHEK COMFORT CURVE STRIP VI SCH ×4 (05:19→18:00)
[2018-12-26] MEDS: InsuLIN REG 1unit/0.01ml Soln (100units/ml) SC SCH ×4 (05:19→18:00)
--- NOTE | 2018-12-26 05:35 | NUR ---
PATIENT REFUSED LOVENOX. CONSEQUENCES EXPLAINED, BUT STILL REFUSED. Addendum: 12/26/18 at 0616 by Richard Wynne RN RN PLEASE IGNORE ABOVE NOTE. WRONG PATIENT. THANK YOU.
--- NOTE | 2018-12-26 06:15 | NUR ---
ON BED, ASLEEP. NO CHANGES IN CONDITION NOTED. FOR MORE CARE AND MANAGEMENT.
[2018-12-26 06:19] LABS: Albumin 2.7 g/dL (3.4-5.0); BUN/Creatinine Ratio 44.7; Calcium 8.2 mg/dL (8.5-10.1); Potassium 4.3 mmol/L (3.5-5.1)
[2018-12-26 06:46] LABS: Bilirubin, Total 13.4 mg/dL (0.2-1.0); Magnesium 2.3 mg/dL (1.6-2.6); Phosphorus 4.2 mg/dL (2.5-4.90); Total Protein 7.8 g/dL (6.4-8.2)
--- NOTE | 2018-12-26 07:10 | NUR ---
Respiratory note: PULSE OX CHECK. PT RESTING IN BED. SPO2 98% ON RA HR 94 RR 16. NO RESPIRATORY DISTRESS NOTED.
--- NOTE | 2018-12-26 07:48 | NUR ---
Opening Shift Note: Assumed care of patient, awake and alert x 2. Patient is confused. Patient is sitting on the edge of the bed. No S/S of distress/SOB or pain. Guards at bedside. Bed in lowest locked position, side rails up x2, call light within reach. Patient on NC, continuous pulse ox reading 94%. Instructed on POC and to call for assist PRN, will continue to monitor for changes Q1hr and PRN.
[2018-12-26 09:00] VITALS: BP 106/76
[2018-12-26] MEDS: FLUTICASONE PROP NASAL SPR 0.05 % (50MCG) 16GM EACHNOSTRI SCH (09:26)
[2018-12-26] MEDS: BUMETANIDE 1mg/4ml VIAL (0.25mg/ml) IV SCH (09:29)
[2018-12-26] MEDS: POTASSIUM CHL 20 Meq TABLET PO SCH ×2 (09:30→21:56)
[2018-12-26] MEDS: rifAXIMin 550 MG TAB PO SCH ×2 (09:30→21:57)
--- NOTE | 2018-12-26 09:47 | NUR ---
Patient is confused about his medications. States "they already forced me to take them this morning." Patient educated on his medications and their frequencies. Will continue to monitor patient Q1HR.
--- NOTE | 2018-12-26 11:47 | NUR ---
Patient continues to refuse lactulose. Patient educated on risks and benefits of this medication. Patient still refusing at this time.
[2018-12-26 12:59] VITALS: BP 99/63
--- NOTE | 2018-12-26 13:03 | NUR ---
Patient is refusing O2 by NC at this time. O2 sats between 88-90%. Will continue to monitor patient.
--- NOTE | 2018-12-26 14:45 | NUR ---
Per telesales agent: Patient had a run of Afib. Dr. Delonte Cortez notified.
[2018-12-26 16:48] VITALS: BP 106/68
[2018-12-26] MEDS ORDERED: DIGOXIN (250MCG/ML) 2 ML AMPULE IV ONE (17:15)
--- NOTE | 2018-12-26 17:38 | NUR ---
Patient accepted and drank his ensure. Will continue to monitor Q1Hr.
--- NOTE | 2018-12-26 19:30 | NUR ---
Opening Shift Note Assumed care of patient, resting quietly in bed with eyes closed, even and unlabored breathing. Patient awakened when name is called and light touching of arms. No S/S of distress/SOB or pain. Insructed on POC and to callfor assist PRN, will continue to monitor for changes Q1hr and PRN. Halfway guards x2 at bedside, handcuffs applied to bilateral ankles and left wrist. Fall and safety precautions in place. Call light within reach.
[2018-12-26] MEDS ORDERED: TPN PER PHARMACY IV NR ×6 (20:00)
[2018-12-26 22:00] VITALS: BP 101/70
--- NOTE | 2018-12-26 23:57 | NUR ---
Respiratory note: AT BEDSIDE FOR POX CHECK. BS ARE DIMINISHED T/O. POX 96-97% ON RA. NO S/S OF DISTRESS NOTED AT THIS TIME, WILL CONTINUE TO MONITOR NEEDED.
--- NOTE | 2018-12-27 | NUR ---
LACTULOSE Attempted to administer scheduled lactulose at this time. Educated patient that lactulose will cause BM, but the main purpose is for increased ammonia level. Patient receptive to education and verbalized understanding, but questioned if he will have BM throughout night. Informed patient that there is a possibility of BM happening throughout the night. Patient refused scheduled lactulose at this time, but agreed to take 0600 dose. Scheduled 0000 lactulose not administered (see emar). Will continue to monitor
[2018-12-27] MEDS: ACCU-CHEK COMFORT CURVE STRIP VI SCH ×4 (00:04→17:04)
[2018-12-27 05:00] VITALS: BP 105/70
[2018-12-27] MEDS: DOBUTamine 1000MCG/ML 250 ML IV SCH ×3 (05:35→21:35)
[2018-12-27] MEDS: Ensure HIGH Protein Chocolate 8oz Bottle PO SCH ×4 (06:00→21:36)
[2018-12-27] MEDS: InsuLIN REG 1unit/0.01ml Soln (100units/ml) SC SCH ×4 (06:00→17:03)
[2018-12-27] MEDS: LACTULOSE 20Gm/30ML SOLN PO SCH ×4 (06:08→18:00)
--- NOTE | 2018-12-27 06:30 | NUR ---
TPN/DOBUTAMINE TPN and Dobutamine drips turned off at this time to allow for blood draw from PICC line. Will inform day shift RN that ice guard skating rink will return at later time for lab draw.
[2018-12-27 08:54] LABS: Albumin 2.6 g/dL (3.4-5.0); Calcium 8.7 mg/dL (8.5-10.1); Magnesium 2.1 mg/dL (1.6-2.6); Potassium 3.4 mmol/L (3.5-5.1)
[2018-12-27 08:58] LABS: BUN/Creatinine Ratio 40.8; Bilirubin, Total 14.6 mg/dL (0.2-1.0); Phosphorus 2.3 mg/dL (2.5-4.90); Total Protein 7.7 g/dL (6.4-8.2)
[2018-12-27 09:00] VITALS: BP 101/67
[2018-12-27] MEDS: BUMETANIDE 1 MG TAB PO SCH (09:44)
[2018-12-27] MEDS: POTASSIUM CHL 20 Meq TABLET PO SCH ×2 (09:44→21:36)
[2018-12-27] MEDS: rifAXIMin 550 MG TAB PO SCH ×2 (10:00→21:36)
--- NOTE | 2018-12-27 10:19 | NUR ---
CALL FROM TELE ROOM STATING PT HAD [address] Travis JOEL, AWARE.
--- NOTE | 2018-12-27 12:15 | NUR ---
WOUND CARE NOTE: IN TO SEE PATIENT AT THIS TIME FOR WOUND REASSESSMENT. PATIENT CONTINUES TO REST ON AIR BED. HE HAS CURRENT JAMES SCORE OF 12. PATIENT VERY LETHARGIC. HE IS REFUSING MANY INTERVENTIONS, BUT AGREES TO ALLOW THIS WOUND CARE NURSE TO VIEW HIS SACRAL WOUND. PATIENT IS LAYING ON HIS LEFT SIDE. INTRAGLUTEAL FOLD FISSURE IS NOW LARGER, MEASURING 1.5 X 1.5 CM. WOUND IS NOW STAGE 2 PRESSURE INJURY. PATIENT EDUCATED ON TURNING/REPOSITIONING. PATIENT NEEDS CONTINUAL REEDUCATION, HE IS NON COMPLIANT AT THIS TIME. APPLIED THERAHONEY, OPTIFOAM GENTLE SACRAL DRESSING. RIGHT DORSAL FOOT HAS NEW SERUM FILLED BLISTER THAT IS INTACT. LEFT OPEN TO AIR. WOUND PHOTOS TAKEN AT THIS TIME FOR REFERENCE. RECOMMEND: DAILY/PRN DRESSING CHANGES TO SACRAL WOUND AND ANY NEW OPEN/DRAINING BLISTERS TO BILATERAL FEET WITH THERAHONEY, OPTIFOAM GENTLE DRESSINGS, CONTINUATION WITH WOUND CARE ORDERS PREVIOUSLY PRESCRIBED BY MD. WOUND CARE TEAM WILL CONTINUE TO MONITOR. Addendum: 12/27/18 at 1750 by Gabriela Villalba RN Amended: Links added.
--- NOTE | 2018-12-27 12:19 | NUR ---
Nutrition Follow-up Notes Wt. 70.6 kg based on bed scale as of yesterday. Pt's asleep, deputies at bedside, no signs of distress noted earlier, currently on Cardiac diet with Ensure High Prot 1 carton TID has inadequate PO intake aeb <50% (x4) in last 3 days d/t pt refused, per nursing. Pt remains on TPN@ 67 ml/hr providing 1860 kcal, 80 gms proteins 1360 NPCs. Pt with adequate PN support d/t mod initiation rate delivery of concentrated formula aeb current PN infusion meets 76% to 91% of est caloric needs however meets 62% to 99% of est protein needs. Noted pt's to receive tonight another TPN @ 79 ml/hr to provide 2090 kcal, 90 gms proteins 1730 NPCs and 9% Fat. Est. Needs IBW 81 [id number] kcal (25-30 kcal/kgBW), 81-130 gms pro (1.0-1.6 gms/kgBW reassessed d/t severe hypoalbuminemia, wounds). Will continue to monitor pertinent labs and reassess nutrient need prn. will reassess per dry body wt Labs: Na 134 L, K 3.4 L, BUN 49 H, Phos 2.3 L, Tot ralf 14.6 H, AST/ALT 114/153 H, ALP 147 H, Alb 2.6 L, PreAlb 5.2 L. Skin: Sheldon 18, mod risk skin, pt with intragluteal fold MASD with open wound, right heel resolving blister per RN doc. Pls refer to latest retouching operator's notes for details re: tx plans. GI: Pt had 3x BM yesterday per book sewing machine operator PES: Increased nutrient needs r/t acute/chronic medical condition aeb Anasarca, pneumonia, chronic passive congestion of liver, cardiomyopathy, hypertension, mod hypoalbuminemia, poor PO intake with PN support. Altered nutrition related lab values r/t current chronic medical condition AEB elev RFT, hyperbil, mod hypoalb (ongoing) Will continue to monitor PO intake, PN tolerance, skin status, pertinent labs and weight trend. F/u in 2 to 3 days. Rec.: 1.) Continue close supervision and feeding assistance prn during meals. 2.) If pt's PO intake remains inadequate (<75%), continue PN support that meets at least 75% of est nutrient needs. 3.) Refer pt to RD for further nutrition education and weight monitoring upon discharge. 4.) Continue current plan of care.
[2018-12-27 13:00] VITALS: BP 112/69
[2018-12-27] MEDS ORDERED: POTASSIUM CHL 20 Meq TABLET PO ONE (13:45)
[2018-12-27 17:00] VITALS: BP 98/67
--- NOTE | 2018-12-27 18:33 | NUR ---
refused lactulose x 2 today.
--- NOTE | 2018-12-27 19:30 | NUR ---
Opening Assumed care of patient, awake and alert. No S/S of distress/SOB or pain. Insructed on POC and to callfor assist PRN, will continue to monitor for changes Q1hr and PRN. Fall and safety precautions in place. Call light within reach. Addendum: 12/27/18 at 2337 by Christelle Oviedo RN RN Jail guards x2 outside of patient room with door open. Handcuffs applied to bilateral ankles, no handcuffs noted on patient wrists.
[2018-12-27] MEDS ORDERED: TPN PER PHARMACY IV NR ×8 (20:00)
--- NOTE | 2018-12-27 20:00 | NUR ---
OXYGEN Patient currently connected to continuous pulse ox monitoring, satting at 84%. Patient currently on room air. Educated patient on importance of wearing nasal cannula to keep oxygen saturation above 90%. Patient refusing to wear cannula, stating "it comes and it goes," referring to oxygen saturation going from 80s - 90s% with or without cannula. Nasal cannula connected to oxygen on wall and placed within reach. Educated patient that if he experiences SOB, to wear his cannula. Patient verbalized understanding of teaching, but still refusing. Will continue to monitor
[2018-12-27 21:29] VITALS: BP 97/66
[2018-12-28] MEDS: ACCU-CHEK COMFORT CURVE STRIP VI SCH ×4 (01:00→17:31)
[2018-12-28] MEDS: InsuLIN REG 1unit/0.01ml Soln (100units/ml) SC SCH ×4 (01:00→17:31)
--- NOTE | 2018-12-28 05:00 | NUR ---
PICC DRESSING PICC line dressing changed at this time using sterile technique. Patient tolerated well.
[2018-12-28 05:34] VITALS: BP 102/69
[2018-12-28] MEDS: Ensure HIGH Protein Chocolate 8oz Bottle PO SCH ×5 (06:00→22:00)
[2018-12-28] MEDS: LACTULOSE 20Gm/30ML SOLN PO SCH ×4 (06:19→17:32)
[2018-12-28 06:49] LABS: Potassium 3.2 mmol/L (3.5-5.1)
[2018-12-28 06:55] LABS: Albumin 2.6 g/dL (3.4-5.0); BUN/Creatinine Ratio 42.7; Calcium 8.6 mg/dL (8.5-10.1)
[2018-12-28 06:57] LABS: Bilirubin, Total 13.2 mg/dL (0.2-1.0); Total Protein 7.3 g/dL (6.4-8.2)
[2018-12-28 07:03] LABS: Magnesium 1.9 mg/dL (1.6-2.6)
[2018-12-28 07:06] LABS: Phosphorus 2.5 mg/dL (2.5-4.90)
[2018-12-28] MEDS: DOBUTamine 1000MCG/ML 250 ML IV SCH ×2 (07:38→20:31)
[2018-12-28 09:00] VITALS: BP 107/74
[2018-12-28] MEDS: BUMETANIDE 1 MG TAB PO SCH ×2 (10:00→10:09)
[2018-12-28] MEDS: POTASSIUM CHL 20 Meq TABLET PO SCH ×3 (10:00→22:06)
[2018-12-28] MEDS: rifAXIMin 550 MG TAB PO SCH ×3 (10:00→22:06)
[2018-12-28] MEDS ORDERED: POTASSIUM CHL 20 Meq TABLET PO ONE (12:30)
[2018-12-28 13:00] VITALS: BP 116/78
--- NOTE | 2018-12-28 16:34 | NUR ---
PT REFUSED ALL MEDS. OOB TO BSC, LINENS CHANGED ON BED.
[2018-12-28 17:00] VITALS: BP 114/68
--- NOTE | 2018-12-28 17:32 | NUR ---
PT REFUSED DRESSING CHANGE TO COCCYX. UNCOOPERATIVE WITH CARES, MEDS, AND MEALS TODAY. APPETITE POOR.
--- NOTE | 2018-12-28 18:24 | NUR ---
NOTED ENSURE IS NOT ON MEAL TRAYS ORDERED. LEFT MESSAGE WITH DIETARY.
--- NOTE | 2018-12-28 18:30 | NUR ---
PT CHECKED AND FOUND OFF CONTINUOUS POX. PT REFUSED TO GO BACK ON. PT ALSO OFF OXYGEN. PT DENIES ANY SOB. PT EDUCATED ON IMPORTANCE OF WEARING O2 AND STAYING ON DEVICES. PT STILL REFUSING.
--- NOTE | 2018-12-28 19:40 | NUR ---
Opening Shift Note Assumed care of patient, awake and alert oriented x4. No S/S of distress/SOB noted. Instructed on POC and to call for assist PRN. Bed is in lowest locked position with bed rails up x2 and call light is within reach of the patient. Guards at the bedside and patient is handcuffed to bed at the left wrist.
[2018-12-28] MEDS ORDERED: TPN PER PHARMACY IV NR ×9 (20:00)
[2018-12-28 21:34] VITALS: BP 115/69
--- NOTE | 2018-12-28 23:00 | NUR ---
Wound care performed on sacrum: Wound care was performed on patients sacrum as ordered. Patient allowed this RN to change his dressing clean wound as ordered. Patient tolerated well. No s/s of distress SOB or pain noted.
[2018-12-29] MEDS: LACTULOSE 20Gm/30ML SOLN PO SCH ×3 (00:18→12:00)
[2018-12-29] MEDS: ACCU-CHEK COMFORT CURVE STRIP VI SCH ×5 (00:18→23:34)
[2018-12-29] MEDS: DOBUTamine 1000MCG/ML 250 ML IV SCH ×3 (03:59→23:39)
[2018-12-29 05:24] VITALS: BP 106/76
[2018-12-29] MEDS: InsuLIN REG 1unit/0.01ml Soln (100units/ml) SC SCH ×5 (05:43→23:33)
[2018-12-29] MEDS: Ensure HIGH Protein Chocolate 8oz Bottle PO SCH ×4 (05:43→21:32)
[2018-12-29 06:18] LABS: Albumin 2.4 g/dL (3.4-5.0); Potassium 4.5 mmol/L (3.5-5.1)
[2018-12-29 06:23] LABS: BUN/Creatinine Ratio 38.5; Bilirubin, Total 12.9 mg/dL (0.2-1.0); Phosphorus 3.5 mg/dL (2.5-4.90); Total Protein 7.3 g/dL (6.4-8.2)
--- NOTE | 2018-12-29 06:30 | NUR ---
Patient refused lactulose this morning: Patient refused lactulose this morning. Educated patient about the medication and indication of the medication. Patient verbalized understanding but stated "I'll pass on the medication. Maybe later." Patient refused this medication at this time.
[2018-12-29 09:00] VITALS: BP 147/84
[2018-12-29] MEDS: POTASSIUM CHL 20 Meq TABLET PO SCH ×2 (10:00→21:32)
[2018-12-29] MEDS: rifAXIMin 550 MG TAB PO SCH ×2 (10:00→21:32)
[2018-12-29] MEDS: BUMETANIDE 1 MG TAB PO SCH (10:34)
--- NOTE | 2018-12-29 10:55 | NUR ---
Nutrition Follow-up Notes Wt. 70.4 kg Pt's asleep, deputies at bedside, no signs of distress noted earlier, currently on Cardiac diet with Ensure High Prot 1 carton TID has inadequate PO of <50% in last 3 days d/t pt refused, per nursing. Pt remains on TPN@ 79 ml/hr providing 2090 kcal, 90 gms proteins 1730 NPCs. Pt with adequate PN support d/t mod initiation rate delivery of concentrated formula aeb current PN infusion meets 86-103% of est caloric needs however meets 69% to 111% of est protein needs. Est. Needs IBW 81 [id number] kcal (25-30 kcal/kgBW), 81-130 gms pro (1.0-1.6 gms/kgBW reassessed d/t severe hypoalbuminemia, wounds). Will continue to monitor pertinent labs and reassess nutrient need prn. will reassess per dry body wt Labs: ALB 2.4 L, CA 8.0 L, GLU 123 H, BETSY 12.9 H, CA 8.0 L Skin: Sheldon 14, mod risk skin, pt with intragluteal fold MASD with open wound, right heel resolving blister per RN doc. Pls refer to latest ror engineer's notes for details re: tx plans. GI: Pt had 3x BM yesterday per documentation engineer PES: Increased nutrient needs r/t acute/chronic medical condition aeb Anasarca, pneumonia, chronic passive congestion of liver, cardiomyopathy, hypertension, mod hypoalbuminemia, poor PO intake with PN support. Altered nutrition related lab values r/t current chronic medical condition AEB elev RFT, hyperbil, mod hypoalb (ongoing) Will continue to monitor PO intake, PN tolerance, skin status, pertinent labs and weight trend. F/u in 2 to 3 days. Rec.: 1.) Continue close supervision and feeding assistance prn during meals. 2.) If pt's PO intake remains inadequate (<75%), continue PN support that meets at least 75% of est nutrient needs. 3.) Refer pt to RD for further nutrition education and weight monitoring upon discharge. 4.) Continue current plan of care.
[2018-12-29 13:00] VITALS: BP 109/76
--- NOTE | 2018-12-29 16:22 | NUR ---
PT OFF FLOOR FOR XRAY VIA WHEELCHAIR. RETURNED TO FLOOR WITHOUT INCIDENT. DRESSING CHANGED TO WOUND ON COCCYX.
[2018-12-29 17:00] VITALS: BP 97/62
--- NOTE | 2018-12-29 18:16 | NUR ---
PT CHECKED. PT IS OFF CONTINUOUS POX. PT REFUSING TO GO BACK ON.
--- NOTE | 2018-12-29 19:30 | NUR ---
assumed care, pt. awake, weak in appearance, jaundice eyes, no c/o pain, guards at bedside, no sob.
[2018-12-29] MEDS ORDERED: SODIUM CHLORIDE IV NR ×9 (20:00)
[2018-12-29] MEDS ORDERED: FAT EMULSION IV NR ×9 (20:00)
[2018-12-29] MEDS ORDERED: SODIUM PHOSPHATES IV NR ×9 (20:00)
[2018-12-29] MEDS ORDERED: [UNRECOGNIZED DRUG - OTHER] IV NR ×9 (20:00)
[2018-12-29 22:00] VITALS: BP 109/57
[2018-12-30 05:00] VITALS: BP 93/65
[2018-12-30] MEDS: ACCU-CHEK COMFORT CURVE STRIP VI SCH ×4 (05:01→23:49)
[2018-12-30] MEDS: InsuLIN REG 1unit/0.01ml Soln (100units/ml) SC SCH ×4 (05:01→23:49)
--- NOTE | 2018-12-30 05:22 | NUR ---
PT. T- 100.5, COOLING MEASURES APPLIED, BLANKET REMOVED, TO KEEP MONITOR.
[2018-12-30] MEDS: Ensure HIGH Protein Chocolate 8oz Bottle PO SCH ×4 (05:32→22:26)
[2018-12-30 05:51] LABS: Hematocrit 33.2 % (41.0-53.0); Hemoglobin 11.7 g/dL (13.5-17.5); Mean Corpuscular Hemoglobin 31.4 pg (28.0-32.0); Mean Corpuscular Hgb Conc. 35.2 g/dL (32.0-36.0); Mean Corpuscular Volume 89.1 fL (80.0-100.0); Platelet Count (auto) 117 10^3/uL (140-450); Red Blood Cells 3.72 10^6/uL (4.5-5.90); White Blood Cell 11.9 10^3/uL (4.4-10.8)
[2018-12-30 05:55] LABS: Red Cell Distribution Width 27.3 % (11.8-14.3)
[2018-12-30 05:57] LABS: Band Neutrophils % (manual) 0; Basophils % (manual) 0 (0.0-2.0); Blast Cells 0; Metamyelocytes % 0; Promyelocytes % 0; Reactive Lymphocytes 0
[2018-12-30 06:03] LABS: Albumin 2.5 g/dL (3.4-5.0); Calcium 8.2 mg/dL (8.5-10.1); Potassium 4.2 mmol/L (3.5-5.1)
[2018-12-30 06:09] LABS: BUN/Creatinine Ratio 41.9; Bilirubin, Total 13.6 mg/dL (0.2-1.0); Eosinophils % (manual) 1 (0-7); Lymphocytes % (manual) 9 (10.0-50.0); Magnesium 2.1 mg/dL (1.6-2.6); Monocytes % (manual) 3 (0-12); Myelocytes % 1; Phosphorus 3.3 mg/dL (2.5-4.90); Total Protein 7.4 g/dL (6.4-8.2)
--- NOTE | 2018-12-30 07:45 | NUR ---
Opening Shift Note Assumed care of patient, patient comfortably sleeping. No S/S of distress/SOB or pain. Bed at lowest locked position, bed side rails up x2 and call light within reach. Will continue to monitor for changes Q1hr and PRN. Guards at bedside.
[2018-12-30 09:00] VITALS: BP 98/69
[2018-12-30] MEDS: DOBUTamine 1000MCG/ML 250 ML IV SCH ×2 (09:00→18:29)
--- NOTE | 2018-12-30 09:44 | NUR ---
Respiratory note: PT CHECKED. PT IS OFF CONTINUOUS POX. PT REFUSING TO GO BACK ON. HR95, RR 20, SPO2 99% ON ROOM.
[2018-12-30] MEDS: POTASSIUM CHL 20 Meq TABLET PO SCH ×2 (11:15→22:27)
[2018-12-30] MEDS: rifAXIMin 550 MG TAB PO SCH ×2 (11:15→22:27)
[2018-12-30] MEDS: BUMETANIDE 1 MG TAB PO SCH (11:15)
[2018-12-30 13:00] VITALS: BP 95/63
[2018-12-30 17:00] VITALS: BP 94/74
--- NOTE | 2018-12-30 19:00 | NUR ---
end of shift Patient is comfortably sleeping, with oxygen on at 2L NC. Bed at lowest locked position, side rails up x2 and call light within reach. Guards at bedside. Will endorse care to NOC RN.
[2018-12-30] MEDS ORDERED: TPN PER PHARMACY IV NR ×10 (20:00)
--- NOTE | 2018-12-30 20:59 | NUR ---
Respiratory note: AT BEDSIDE FOR POX CHECK. BILATERAL BS ARE DIMINISHED. SPO2 97% ON RA. NO S/S OF DISTRESS NOTED AT THIS TIME, WILL CONTINUE TO MONITOR NEEDED.
[2018-12-30 22:00] VITALS: BP 129/63
--- NOTE | 2018-12-31 00:36 | NUR ---
Care endorsed to Bhavana GROSS.
[2018-12-31] MEDS: DOBUTamine 1000MCG/ML 250 ML IV SCH ×3 (03:07→21:38)
[2018-12-31] MEDS: ACETAMINOPHEN 325 MG TAB PO PRN (04:50)
--- NOTE | 2018-12-31 04:50 | NUR ---
Patient complains of generalized pain. Medicated with 650 mg of Tylenol.
[2018-12-31 05:00] VITALS: BP_SYST 94; BP_SYST 95; BP_DIAS 58; BP_DIAS 67
[2018-12-31] MEDS: InsuLIN REG 1unit/0.01ml Soln (100units/ml) SC SCH ×4 (06:00→23:50)
[2018-12-31] MEDS: ACCU-CHEK COMFORT CURVE STRIP VI SCH ×4 (06:28→23:50)
--- NOTE | 2018-12-31 07:00 | NUR ---
Patient resting comfortably. Report given to Day RN.
--- NOTE | 2018-12-31 07:10 | NUR ---
Respiratory note: ASSESSMENT FOR POX CHECK. BILATERAL BS ARE CLEAR/DIMINISHED HR 87, RR 16, POX 100% ON RA. NO SOB OF DISTRESS NOTED AT THIS TIME, WILL CONTINUE TO MONITOR NEEDED.
[2018-12-31] MEDS: Ensure HIGH Protein Chocolate 8oz Bottle PO SCH ×4 (08:00→21:38)
[2018-12-31 09:00] VITALS: BP 107/61
[2018-12-31] MEDS: BUMETANIDE 1 MG TAB PO SCH (10:02)
[2018-12-31] MEDS: POTASSIUM CHL 20 Meq TABLET PO SCH (10:02)
[2018-12-31 11:30] LABS: Albumin 2.5 g/dL (3.4-5.0); Calcium 8.4 mg/dL (8.5-10.1); Magnesium 2.3 mg/dL (1.6-2.6); Potassium 3.7 mmol/L (3.5-5.1)
[2018-12-31 11:32] LABS: Bilirubin, Total 13.6 mg/dL (0.2-1.0); Phosphorus 2.7 mg/dL (2.5-4.90)
--- NOTE | 2018-12-31 12:30 | NUR ---
obtained orders for pain management from Dr. Prater
[2018-12-31 13:00] VITALS: BP 103/72
[2018-12-31 13:12] LABS: BUN/Creatinine Ratio 40.4
[2018-12-31] MEDS: HYDROcodone-ACET 10/325MG TAB PO PRN (15:00)
[2018-12-31 17:00] VITALS: BP 102/63
[2018-12-31] MEDS ORDERED: TPN PER PHARMACY IV NR ×9 (20:00)
[2018-12-31 22:00] VITALS: BP 100/73
[2019-01-01 05:00] VITALS: BP 137/78
[2019-01-01] MEDS: Ensure HIGH Protein Chocolate 8oz Bottle PO SCH ×4 (05:40→22:00)
[2019-01-01] MEDS: ACCU-CHEK COMFORT CURVE STRIP VI SCH ×4 (05:41→23:36)
[2019-01-01] MEDS: InsuLIN REG 1unit/0.01ml Soln (100units/ml) SC SCH ×4 (05:41→23:36)
[2019-01-01 07:35] LABS: Albumin 2.2 g/dL (3.4-5.0); Calcium 8.1 mg/dL (8.5-10.1); Magnesium 1.9 mg/dL (1.6-2.6); Potassium 3.2 mmol/L (3.5-5.1)
[2019-01-01 07:41] LABS: Bilirubin, Total 9.8 mg/dL (0.2-1.0); Total Protein 7.1 g/dL (6.4-8.2); Uric Acid 1.5 mg/dL (3.5-7.2)
[2019-01-01] MEDS: DOBUTamine 1000MCG/ML 250 ML IV SCH ×2 (08:49→16:58)
[2019-01-01 09:00] VITALS: BP 94/70
[2019-01-01] MEDS ORDERED: POTASSIUM CHL 20 Meq TABLET PO ONE ×2 (10:00)
[2019-01-01] MEDS: BUMETANIDE 1 MG TAB PO SCH (11:16)
[2019-01-01] MEDS: SPIRONOLACTONE 25 MG TAB PO SCH (11:16)
--- NOTE | 2019-01-01 12:00 | NUR ---
PATIENT MOVED ROOMS TRANSFERRED FROM 238 TO ROOM 244-7
[2019-01-01 13:00] VITALS: BP 106/74
[2019-01-01 17:00] VITALS: BP 95/73
--- NOTE | 2019-01-01 18:27 | NUR ---
Respiratory note: ASSESSED PT FOR POX CHECK. PT IS CURRENTLY ON ROOM AIR: HR 98, RR 20, SPO2 100% WITH CLEAR/DIM BS T/O. PT SHOWS NO S/S OF SOB OR RESPIRATORY DISTRESS. WILL CONTINUE TO MONITOR.
--- NOTE | 2019-01-01 19:21 | NUR ---
OPENING NOTES RECEIVED REPORT FROM DAY SHIFT NURSE, PT IS AWAKE, ALERT AND ORIENTATED X 4 WITH NO S/S OF DISTRESS NOR SOB. NO S/S OF PAIN. GUARDS ARE AT BEDSIDE. BED IS IN LOWEST POSITION AND SIDE RAILS UP X2. BED BRAKES ARE LOCKED AND CALL LIGHT IS WITH IN REACH. HOB IS 30 DEGREES. WILL MONITOR PATIENT Q 1HR.
[2019-01-01] MEDS ORDERED: TPN PER PHARMACY IV NR ×10 (20:00)
[2019-01-01 22:00] VITALS: BP 94/66
[2019-01-01] MEDS: HYDROcodone-ACET 10/325MG TAB PO PRN (23:29)
--- NOTE | 2019-01-02 00:19 | NUR ---
ROUNDING PT CALLED CLAIMING FLOOR IS FILLED WITH ANTS. UPON ENTERING ROOM, NO ANTS WERE SEEN. PT ASKED TO SPEAK TO CHARGE NURSE. WHEN ASKED IF THERE IS ANYTHING THIS NURSE COULD ASSIST WITH, PT SAID "BECAUSE OF THE ANTS." AFTER REASSURING THERE WERE NO ANTS ON FLOOR NOR IN THE ROOM, PT CLAIMED IN SERIOUS TONE "DO I LOOK LIKE AN IDIOT." PT WAS INFORMED THAT CHARGE NURSE WILL BE INFORMED OF SITUATION.
[2019-01-02] MEDS: DOBUTamine 1000MCG/ML 250 ML IV SCH ×2 (02:28→15:42)
[2019-01-02 05:01] VITALS: BP 126/62
[2019-01-02] MEDS: Ensure HIGH Protein Chocolate 8oz Bottle PO SCH ×4 (05:55→21:51)
[2019-01-02] MEDS: ACCU-CHEK COMFORT CURVE STRIP VI SCH ×3 (05:55→18:34)
[2019-01-02] MEDS: InsuLIN REG 1unit/0.01ml Soln (100units/ml) SC SCH ×3 (05:56→18:00)
[2019-01-02 06:10] LABS: Creatinine, Urine 91.9 mg/dL (30.0-125.0); Protein, Urine 37.3 mg/dL (0.0-11.9)
--- NOTE | 2019-01-02 06:55 | NUR ---
PT ON RA, 98% O2 SATS, RR 18 BPM, RESPIRATION IS EVEN AND NONLABORED, SKIN IS WARM AND DRY TO TOUCH. BS ARE CLEAR TO AUSCULTATION. NO SOB OR ANY OTHER RESPIRATORY DISTRESS NOTED.
[2019-01-02 07:08] LABS: Albumin 2.3 g/dL (3.4-5.0); BUN/Creatinine Ratio 32.6; Calcium 8.3 mg/dL (8.5-10.1); Potassium 4.1 mmol/L (3.5-5.1)
[2019-01-02 07:17] LABS: Bilirubin, Total 8.3 mg/dL (0.2-1.0)
--- NOTE | 2019-01-02 07:26 | NUR ---
CLOSING NOTES ENDORSED CARE TO DAY SHIFT NURSELUDA.
--- NOTE | 2019-01-02 08:30 | NUR ---
Opening Shift Note Assumed care of patient, awake and alert. Respiratory even and unlabored. No S/S of distress/SOB or pain. Skin is warm andn dry to touch. Continue on TPN, no s/s of hyperglycemia or hypoglycemia noted. Instructed on POC and to call for assist PRN, will continue to monitor for changes Q1hr and PRN.
[2019-01-02 09:00] VITALS: BP 101/53
[2019-01-02 09:11] LABS: Phosphorus 3.5 mg/dL (2.5-4.90); Pre Albumin 7.7 mg/dL (20.0-40.0)
[2019-01-02] MEDS: SPIRONOLACTONE 25 MG TAB PO SCH (09:42)
[2019-01-02] MEDS: BUMETANIDE 1 MG TAB PO SCH (09:42)
--- NOTE | 2019-01-02 12:01 | NUR ---
Patient refused to change dressing to sacral at this time.
[2019-01-02 13:00] VITALS: BP 95/68
--- NOTE | 2019-01-02 14:20 | NUR ---
Nutrition Follow-up Notes Wt. 100.1 kg based on bed scale as pt yesterday. Pt's asleep, deputies at bedside, no signs of distress noted earlier. Pt tolerates oral diet with improved food intake, per nursing. currently on Cardiac diet with Ensure High Prot 1 carton TID has fair PO intake aeb 65% ave. consumed meals (x5) in last 3 days. Pt remains on TPN@ 79 ml/hr providing 2090 kcal, 90 gms proteins 1730 NPCs. Pt with adequate PN support d/t high initiation rate delivery of concentrated formula aeb current PN infusion meets 86% to 103% of est caloric needs however meets 69% to 111% of est protein needs. Noted pt's to receive tonight another TPN at same rate and nutrient concentration. Est. Needs IBW 81 [id number] kcal (25-30 kcal/kgBW), 81-130 gms pro (1.0-1.6 gms/kgBW reassessed d/t severe hypoalbuminemia, wounds). Will continue to monitor pertinent labs and reassess nutrient need prn. will reassess per dry body wt Labs: Na 134 L, BUN 31 H, Ca 8.3 L, AST 78 H, ALT 115 H, ALP 126 H; Alb 2.3 L, Prealb 7.7 L, Trig 73 wnl Skin: Sheldon 14, mod risk skin, pt with intragluteal fold MASD with open wound, right heel resolving blister per RN doc. Pls refer to latest community reinvestment act officer's notes for details re: tx plans. GI: Pt had 1x BM 12/30/18 per track laying machine operator PES: Increased nutrient needs r/t acute/chronic medical condition aeb Anasarca, pneumonia, chronic passive congestion of liver, cardiomyopathy, hypertension, mod hypoalbuminemia, poor PO intake with PN support. Altered nutrition related lab values r/t current chronic medical condition AEB elev RFT, hyperbil, mod hypoalb (ongoing) Will continue to monitor PO intake, PN tolerance, skin status, pertinent labs and weight trend. F/u in 2 to 3 days. Rec.: 1.) Continue close supervision and feeding assistance prn during meals. 2.) If pt's PO intake remains inadequate (<75%), continue PN support that meets at least 75% of est nutrient needs. 3.) Refer pt to RD for further nutrition education and weight monitoring upon discharge. 4.) Continue current plan of care. Thank you for this consult.
[2019-01-02 17:02] VITALS: BP 103/53
[2019-01-02] MEDS ORDERED: TPN PER PHARMACY IV NR ×9 (20:00)
[2019-01-02 21:41] VITALS: BP 90/61
[2019-01-03] MEDS: ACCU-CHEK COMFORT CURVE STRIP VI SCH ×7 (00:08→23:42)
[2019-01-03] MEDS: DOBUTamine 1000MCG/ML 250 ML IV SCH ×4 (00:12→23:33)
[2019-01-03 05:06] VITALS: BP 98/69
[2019-01-03] MEDS: Ensure HIGH Protein Chocolate 8oz Bottle PO SCH ×4 (06:01→21:30)
[2019-01-03] MEDS: InsuLIN REG 1unit/0.01ml Soln (100units/ml) SC SCH ×5 (06:15→23:42)
[2019-01-03 06:53] LABS: Albumin 2.2 g/dL (3.4-5.0); Calcium 8.1 mg/dL (8.5-10.1); Magnesium 2.1 mg/dL (1.6-2.6); Potassium 4.1 mmol/L (3.5-5.1)
[2019-01-03 06:57] LABS: BUN/Creatinine Ratio 34.7; Bilirubin, Total 8.2 mg/dL (0.2-1.0); Phosphorus 3.5 mg/dL (2.5-4.90); Total Protein 7.2 g/dL (6.4-8.2)
--- NOTE | 2019-01-03 07:19 | NUR ---
report received from uriel rn pt received stable asleep
[2019-01-03 08:44] VITALS: BP 119/72
[2019-01-03] MEDS: BUMETANIDE 1 MG TAB PO SCH (09:59)
[2019-01-03] MEDS: SPIRONOLACTONE 25 MG TAB PO SCH (10:00)
[2019-01-03 13:00] VITALS: BP 84/63
--- NOTE | 2019-01-03 16:00 | NUR ---
WOUND CARE NOTE: Attempted reevaluation by wound care team. Patient has been frequently refusing interventions. Last Sheldon score is 14. Patient doesn't want dressing changed and this time and photographs to be taken.
[2019-01-03 17:00] VITALS: BP 92/72
[2019-01-03] MEDS ORDERED: TPN PER PHARMACY IV NR ×9 (20:00)
[2019-01-03 22:00] VITALS: BP 108/74
[2019-01-04 05:00] VITALS: BP 120/75
[2019-01-04] MEDS: Ensure HIGH Protein Chocolate 8oz Bottle PO SCH ×3 (05:44→18:02)
[2019-01-04] MEDS: ACCU-CHEK COMFORT CURVE STRIP VI SCH ×3 (05:59→18:03)
[2019-01-04] MEDS: InsuLIN REG 1unit/0.01ml Soln (100units/ml) SC SCH ×3 (06:00→18:00)
[2019-01-04 07:01] LABS: Potassium 4.2 mmol/L (3.5-5.1)
[2019-01-04 07:11] LABS: Albumin 2.2 g/dL (3.4-5.0); BUN/Creatinine Ratio 33.7; Calcium 8.2 mg/dL (8.5-10.1); Magnesium 2.3 mg/dL (1.6-2.6); Phosphorus 2.9 mg/dL (2.5-4.90); Total Protein 7.2 g/dL (6.4-8.2)
--- NOTE | 2019-01-04 08:10 | NUR ---
Opening Note Assumed care of patient, he is A & O x4, sitting at bedside. Patient states "my blister on my right foot is leaking." Will place dressing on foot. There is serosanguineous drainage from the blister at this time. Patient c/o generalized body pain and is asking for pain medication, will medicate per orders. POC discussed with patient. TPN at 79ml/hr and Dobutamine at 5mcg/kg/min. Bed is in low, locked position, call light within reach. Will continue to monitor Q1h and PRN.
--- NOTE | 2019-01-04 08:59 | NUR ---
LIZ Patterson called [facility] will call for report, this is the transport company. The transfer flight is scheduled for 1999. Will await phone call.
[2019-01-04 09:00] VITALS: BP 110/72
[2019-01-04] MEDS: SPIRONOLACTONE 25 MG TAB PO SCH (10:28)
[2019-01-04] MEDS: HYDROcodone-ACET 10/325MG TAB PO PRN (10:28)
[2019-01-04] MEDS: DOBUTamine 1000MCG/ML 250 ML IV SCH (10:29)
[2019-01-04] MEDS: BUMETANIDE 1 MG TAB PO SCH (10:29)
--- NOTE | 2019-01-04 12:44 | NUR ---
Spoke to Dr. Prater He states to call him an hour before the transfer to receive a discharge order. He will give a verbal order over the phone.
[2019-01-04 13:00] VITALS: BP 100/71
--- NOTE | 2019-01-04 14:10 | NUR ---
Patient had a run of VTACH seven beats, patient is asymptomatic at this time. He is awake and alert. Patient rhythm is sinus at this time. Will notify Dr. Delonte Cortez
--- NOTE | 2019-01-04 14:17 | NUR ---
Spoke to Dr. Delonte Cortez regarding patient run of VTACH No further orders at this time. Will continue to monitor the patient.
--- NOTE | 2019-01-04 14:19 | NUR ---
Nutrition Follow-up Notes Wt. 77.1 kg based on bed scale as of yesterday. Pt's asleep, deputies at bedside, no signs of distress noted earlier, currently on Cardiac diet with Ensure High Prot 1 carton TID, tolerates oral diet has improved PO intake aeb 80% ave. consumed meals (x5) in last 3 days. Pt remains on TPN@ 79 ml/hr providing 2090 kcal, 90 gms proteins 1730 NPCs. Pt with adequate PN support d/t high initiation rate delivery of concentrated formula aeb current PN infusion meets 86% to 103% of est caloric needs however meets 69% to 111% of est protein needs. Noted pt's to receive tonight another TPN at same rate and nutrient concentration. Est. Needs IBW 81 [id number] kcal (25-30 kcal/kgBW), 81-130 gms pro (1.0-1.6 gms/kgBW reassessed d/t severe hypoalbuminemia, wounds). Will continue to monitor pertinent labs and reassess nutrient need prn. will reassess per dry body wt Labs: Na 135 L, BUN 33 H, Ca 8.2 L, Tot ralf 8.0 H, AST 76 H, ALT 101 H, ALP 133 H; Alb 2.2 L, Prealb 7.7 L, Trig 73 wnl Skin: Sheldon 19, low risk skin, pt with medial sacrum pressure ulcers, right left heel blisters per RN doc. Pls refer to latest care management assistant's notes for details re: tx plans. 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 Altered nutrition related lab values r/t current chronic medical condition AEB elev RFT, hyperbil, mod hypoalb (ongoing) Will continue to monitor PO intake, PN tolerance, skin status, pertinent labs and weight trend. F/u in 2 to 3 days. Rec.: 1.) Continue close supervision and feeding assistance prn during meals. 2.) If pt's PO intake consistently adequate (>75%), consider gradual tapering down of PN support if medically appropriate. 3.) Refer pt to RD for further nutrition education and weight monitoring upon discharge. 4.) Continue current plan of care.
--- NOTE | 2019-01-04 14:25 | NUR ---
Received a call from Ammy of [facility] this AM and relayed information to Promise springer RN. I did not give Promise phone # to [facility] or individauls to contact if issues. Jessika Gonzalez or John Edouard at [phone] for handoff from RN to Flight RN
[2019-01-04 17:00] VITALS: BP 112/79
--- NOTE | 2019-01-04 17:50 | NUR ---
Spoke to Dr. Prater Orders received, read back and verified to discontinue dobutamine drip, discontinue TPN, and discharge patient to higher level of care.
[2019-01-04 18:33] VITALS: BP_SYST 120; BP_SYST 96; BP_DIAS 56; BP_DIAS 75
--- NOTE | 2019-01-04 19:05 | NUR ---
Report Given to RENATO Hay, NOC shift.
--- NOTE | 2019-01-04 19:48 | NUR ---
CALLED [facility] AT [phone] TO CONFIRM WHEN PICKUP WOULD BE. THEY STATED THAT THE FLIGHT SHOULD BE LANDING AT ABOUT 8 PM TONIGHT AND THEY USUALLY WILL CALL WHEN THEY ARE ABOUT TO ARRIVE. WILL GIVE BEDSIDE REPORT AT THAT TIME.
[2019-01-04] MEDS ORDERED: TPN PER PHARMACY IV NR ×9 (20:00)
--- NOTE | 2019-01-04 21:10 | NUR ---
2049: [facility] ARRIVED TO TAKE PATIENT 2054: TOOK PATIENT GLUCOSE AND WAS RECORDED AT 55. I GAVE 50 ML OF D50. THE FLIGHT NURSE TAMEKA NICHOLE WAS THERE AND AGREED IT WAS OK. HE TOOK 2 BOTTLES OF ENSURE FOR THE FLIGHT. 2109: PATIENT WAS LOADED ONTO GURNEY. ALL FLUIDS WERE DISCONTINUED. PICC LINE PORTS FLUSHED. TELE BOX WAS REMOVED. NO BELONGINGS WERE BROUGHT TO FACILITY. HE LEFT WITH FLIGHT CREW AND [employer]ERAL OFFICERS.
== END 2019-01-04 21:10 | disposition short-term general hospital (02) | DRG 441 ==
LOC: ER 12:59 → EEVIPCON 12:59 → EDBD 12:59 → TELE 13:00 → TELE-E-ADS 22:36 → TELE-EAST 11-30 18:56 → TELE-E-ADS 12-06 10:22 → TELE-EAST 12-17 02:17 → TELE-E-ADS 01-01 10:58
PROVIDERS: ADMIT Internal Medicine; ATTEND Internal Medicine
PROC: 02HV33Z Insertion of Infusion Device into Superior Vena Cava, Percutaneous Approach (ICD-10-PCS; principal; 2018-11-15)
DX: K76.1 Chronic passive congestion of liver (principal); J18.9 Pneumonia, unspecified organism; J96.20 Acute and chronic respiratory failure, unspecified whether with hypoxia or hypercapnia; N17.0 Acute kidney failure with tubular necrosis; I50.43 Acute on chronic combined systolic (congestive) and diastolic (congestive) heart failure; I13.0 Hypertensive heart and chronic kidney disease with heart failure and stage 1 through stage 4 chronic kidney disease, or unspecified chronic kidney disease; I24.9 Acute ischemic heart disease, unspecified; E87.1 Hypo-osmolality and hyponatremia; E44.0 Moderate protein-calorie malnutrition; D68.9 Coagulation defect, unspecified; E87.4 Mixed disorder of acid-base balance; K92.2 Gastrointestinal hemorrhage, unspecified; I42.0 Dilated cardiomyopathy; R60.1 Generalized edema; I50.82 Biventricular heart failure; N18.3 Chronic kidney disease, stage 3 (moderate); R62.7 Adult failure to thrive; K76.89 Other specified diseases of liver; E66.9 Obesity, unspecified; E87.6 Hypokalemia; E87.5 Hyperkalemia; D69.6 Thrombocytopenia, unspecified; F12.90 Cannabis use, unspecified, uncomplicated; D64.9 Anemia, unspecified; F17.210 Nicotine dependence, cigarettes, uncomplicated; I70.0 Atherosclerosis of aorta; T50.2X5A Adverse effect of carbonic-anhydrase inhibitors, benzothiadiazides and other diuretics, initial encounter; K72.90 Hepatic failure, unspecified without coma; Y92.238 Other place in hospital as the place of occurrence of the external cause; Z95.2 Presence of prosthetic heart valve; Z95.1 Presence of aortocoronary bypass graft; I25.2 Old myocardial infarction; Z95.810 Presence of automatic (implantable) cardiac defibrillator; Z56.0 Unemployment, unspecified; Z82.49 Family history of ischemic heart disease and other diseases of the circulatory system; Z82.3 Family history of stroke; Z83.3 Family history of diabetes mellitus; Z68.23 Body mass index [BMI] 23.0-23.9, adult; Z74.01 Bed confinement status; Z79.899 Other long term (current) drug therapy; Z86.711 Personal history of pulmonary embolism; Z79.01 Long term (current) use of anticoagulants
CPT/HCPCS: 36415; 36600; 71045; 71046; 76604; 76705; 80048; 80053; 80074; 80076; 81001; 82040; 82140; 82306; 82390; 82570; 82805; 82962; 83540; 83550; 83735; 84100; 84156; 84300; 84439; 84443; 84478; 84481; 84484; 84550; 85007; 85025; 85027; 85610; 85730; 87081; 93005; 93970; 94640; 94760; 94761; 94762; 96372; 96374; 97110; 97116; 97163; 97530; G0378; J0610; J1815; J2405; J3430; J3480; J7131; P9047